=== PATIENT | male | born 1945 | race Caucasian/White ===

== ENCOUNTER 2020-02-22 09:50 | Outpatient (REF) | payer MEDICARE, OTHER, SELFPAY | END 2020-02-22 09:51 | disposition home or self-care (01) | LOC: HO.WFDLNP 09:50 | PROVIDERS: PCP Internal Medicine; Visit Provider Internal Medicine | DX: Z20.828 Contact with and (suspected) exposure to other viral communicable diseases (principal) | CPT/HCPCS: C9803; U0003 ==

== ENCOUNTER 2020-12-04 06:26 | Day surgery (SDC) | payer MEDICARE, OTHER, SELFPAY ==
[2020-11-27 14:45] VITALS: BMI 30.7
--- NOTE | 2020-11-30 16:32 | MHC.SHP ---
Pre-Procedural Eval Section A Date of Service: 11/30/20 The patient is an INPATIENT: No Changes since office visit: No Cold of Flu in the past 2 weeks, No New Medical Problems, No Changes in Medication and No Patient answered all questions The History & Physical has been completed within 30 days and I have reviewed it.: Yes Section B Chief Complaint: cataract Allergies: Allergies Allergy/AdvReac Type Severity Reaction Status Date / Time sulfamethoxazole Allergy Affected Verified 11/27/20 14:31 [From Bactrim] Kidneys trimethoprim [From Bactrim] Allergy Affected Verified 11/27/20 14:31 Kidneys Plan Diagnosis/Plan: Unchanged I have reviewed the history and physical and performed a pertinent physical examination on my patient. No changes have occurred unless specified.
--- NOTE | 2020-12-01 08:43 | P.CONAN_ITS ---
Documented by User: Jacquelyn Gannon NP 12/01/20 12:41 HPI - Anesthesia Eval Consult details Narrative: 75yo M for Left Cataract Extraction IOL Insertion PCP cleared No prev cataract on record Plavix for [facility] Past Medical History Medical History (Updated 11/27/20 @ 14:19 by Claire Joseph, RN) Arthritis AV block, 1st degree BPH (benign prostatic hyperplasia) CAD (coronary artery disease) CHF (congestive heart failure) CKD (chronic kidney disease), stage III Diabetes Elevated cholesterol GERD (gastroesophageal reflux disease) Gout HTN (hypertension) Intermittent claudication Peripheral arterial occlusive disease Surgical History Surgical History (Updated 11/27/20 @ 14:19 by Claire Joseph RN) History of bilateral total hip arthroplasty History of carotid endarterectomy Hx of angioplasty Hx of CABG Hx of coronary angioplasty Social History Social History Are you a primary career law clerk to a significant other at home: No Do you presently have visiting nurse or other home services: No Patient Tobacco Use Status: Never used Tobacco Use of substances other than those prescribed or required for medical reasons: No Substance Use Type Other:: Wine with Dinner Have you been hit, kicked, punched, or otherwise hurt by someone within the past year? If so, by whom?: No Are you DNR?: No Advance Directives: No Advance Directives Information Provided: No Advance Directives on File: No Recently lost weight without trying: No Eating poorly because of decreased appetite: No Nutrition Risks: No Nutritional Risk Meds Allergies Allergy/AdvReac Type Severity Reaction Status Date / Time sulfamethoxazole Allergy Affected Verified 12/04/20 06:31 [From Bactrim] Kidneys trimethoprim [From Bactrim] Allergy Affected Verified 12/04/20 06:31 Kidneys Home Medications Medication Instructions Recorded Confirmed Last Taken Type allopurinol 100 mg tablet 100 mg PO DAILY 11/27/20 11/27/20 Unknown History amlodipine 5 mg tablet 5 mg PO DAILY 11/27/20 11/27/20 12/04/20 05:30 History atorvastatin 40 mg tablet 40 mg PO BEDTIME 11/27/20 11/27/20 Unknown History cilostazol 50 mg tablet 50 mg PO BID 11/27/20 11/27/20 12/04/20 05:30 History clopidogrel 75 mg tablet 75 mg PO DAILY 11/27/20 11/27/20 Unknown History doxazosin 4 mg tablet 4 mg PO BEDTIME 11/27/20 11/27/20 Unknown History furosemide 20 mg tablet 40 mg PO DAILY 11/27/20 11/27/20 Unknown History glipizide 5 mg tablet 5 mg PO DAILY 11/27/20 11/27/20 Unknown History isosorbide mononitrate 30 mg 30 mg PO DAILY 11/27/20 11/27/20 12/04/20 05:30 History tablet,extended release 24 hr pantoprazole 40 mg tablet,delayed 40 mg PO DAILY 11/27/20 11/27/20 12/04/20 05:30 History release Exam Exam Date and Time: December 01, 2020 0843 Height,Weight and Vital Signs: Height 5 ft 11 in Weight 99.79 kg Narrative Narrative: EKG 11/2020 SR with 1st degree AV block Old [place] Assessment and Plan Assessment Anesthesia Assessment: Chart Reviewed Documented by User: Dorene Bella MD 12/04/20 07:29 [facility] Past Medical History Medical History (Updated 11/27/20 @ 14:19 by Claire Joseph, DANIELA) Arthritis AV block, 1st degree BPH (benign prostatic hyperplasia) CAD (coronary artery disease) CHF (congestive heart failure) CKD (chronic kidney disease), stage III Diabetes Elevated cholesterol GERD (gastroesophageal reflux disease) Gout HTN (hypertension) Intermittent claudication Peripheral arterial occlusive disease Family History Family history of problems with anesthesia: No Surgical History Surgical History (Updated 11/27/20 @ 14:19 by Claire Joseph RN) History of bilateral total hip arthroplasty History of carotid endarterectomy Hx of angioplasty Hx of CABG Hx of coronary angioplasty History of Problems with Anesthesia: No Social History Social History Are you a primary career law clerk to a significant other at home: No Do you presently have visiting nurse or other home services: No Patient Tobacco Use Status: Never used Tobacco Use of substances other than those prescribed or required for medical reasons: No Substance Use Type Other:: Wine with Dinner Have you been hit, kicked, punched, or otherwise hurt by someone within the past year? If so, by whom?: No Are you DNR?: No Advance Directives: No Advance Directives Information Provided: No Advance Directives on File: No Recently lost weight without trying: No Eating poorly because of decreased appetite: No Nutrition Risks: No Nutritional Risk Meds Allergies Allergy/AdvReac Type Severity Reaction Status Date / Time sulfamethoxazole Allergy Affected Verified 12/04/20 06:31 [From Bactrim] Kidneys trimethoprim [From Bactrim] Allergy Affected Verified 12/04/20 06:31 Kidneys Home Medications Medication Instructions Recorded Confirmed Last Taken Type allopurinol 100 mg tablet 100 mg PO DAILY 11/27/20 11/27/20 Unknown History amlodipine 5 mg tablet 5 mg PO DAILY 11/27/20 11/27/20 12/04/20 05:30 History atorvastatin 40 mg tablet 40 mg PO BEDTIME 11/27/20 11/27/20 Unknown History cilostazol 50 mg tablet 50 mg PO BID 11/27/20 11/27/20 12/04/20 05:30 History clopidogrel 75 mg tablet 75 mg PO DAILY 11/27/20 11/27/20 Unknown History doxazosin 4 mg tablet 4 mg PO BEDTIME 11/27/20 11/27/20 Unknown History furosemide 20 mg tablet 40 mg PO DAILY 11/27/20 11/27/20 Unknown History glipizide 5 mg tablet 5 mg PO DAILY 11/27/20 11/27/20 Unknown History isosorbide mononitrate 30 mg 30 mg PO DAILY 11/27/20 11/27/20 12/04/20 05:30 History tablet,extended release 24 hr pantoprazole 40 mg tablet,delayed 40 mg PO DAILY 11/27/20 11/27/20 12/04/20 05:30 History release Exam Airway Mallampati Class: II (Implant front tooth right) TM Dist: >3cm Neck ROM: Full Heart: david Lungs: cta Assessment and Plan Assessment Anesthesia Assessment: Anesthesia Plan Discussed Final Anesthetic Review Family History of Problems with Anesthesia: No History of Problems with Anesthesia: No NPO: Yes ASA Class: III Final Preanesthetic Review: No Changes in Pt Med Stat, Meds/Allgs Chart Reviewed and Consent Obtained/Reviewed Patient Risk: Intermediate Procedure Risk: Intermediate Anesthetic Plan Anesthetic Plan: MAC: Disposition: Standard PACU
[2020-12-04 06:34] VITALS: BP 163/59; PULSE 48; RESP 16; TEMP 36.2; O2SAT 98
[2020-12-04 06:44] LABS: Glucose, Whole Blood 118 mg/dL (60-115)
[2020-12-04] MEDS: Lactated Ringers 500 ML 50 ML IV (06:47)
[2020-12-04] MEDS: Tetracaine HCl/PF 0.5% Oph Sol 4 ML DROPS 1 DROP EYE-LEFT (06:51)
[2020-12-04] MEDS: Tropicamide 1 % Ophth Sol 3 ML BTL 1 DROP EYE-LEFT ×3 (06:54→07:17)
[2020-12-04] MEDS: Phenylephrine HCL 2.5% Oph SoL 2 ML BOTTLE 1 DROP EYE-LEFT ×3 (06:59→07:20)
--- NOTE | 2020-12-04 07:40 | PC.NURSE ---
Patient arrived to [facility] and placed on library monitor. Rhythm showed SB with first degree AV block, Heart rate 47-53. Patients recent EKG from 11/22/20 showed SR with heart rate in the 60's. Patient asymptomatic and states he feels fine . Per patient, no recent medication changes. Anesthesia Dr. Jimenez made aware of Sinus Bradycardia. No new orders. Okay to proceed with procedure as ordered.
--- NOTE | 2020-12-04 07:54 | HO.PNOPHT ---
Ophthalmology Procedure Procedure Date of Service: 12/04/20 Ophthalmology Viscoelastic: Healon Duet Dual Pack Pro Ophthalmology Lenses: TECANUEL [id number] (20) Procedure Notes: PREOPERATIVE DIAGNOSIS: Decreased visual acuity left eye secondary to cataract POSTOPERATIVE DIAGNOSIS: Same PROCEDURE: Left cataract extraction with intraocular lens insertion SURGEON: Freddy Celis M.D. ANESTHESIA: Topical/MAC ESTIMATED BLOOD LOSS: None COMPLICATIONS: None After obtaining informed consent, the patient was brought to the operation room suite and placed in the supine position. After adequate sedation per anesthesia, topical drops of Tetracaine were given to the left eye. The eye was then prepped and draped in the usual sterile fashion. The operating room microscope was then positioned over the operative eye and a lid speculum placed. A paracentesis was created. Viscoelastic was then instilled into the anterior chamber. A three plane incision was then created temporally, utilizing a 2.85 mm keratome. Capsulotomy forceps were then utilized to create a circular tear capsulotomy. Hydrodissection and hydrodelineation were carried out until adequate mobilization of the nucleus occurred. Phacoemulsification was then utilized to remove the dense central nucleus followed by removal of the cortical material utilizing the automated aspiration irrigation unit. Viscoat elastic was instilled into the posterior capsular bag followed by placement of a posterior chamber intraocular lens without difficulty. The residual Viscoat elastic was then removed utilizing the automated IA machine. The wound was check and found to be watertight. The patient tolerated the procedure well and the lid speculum was removed. Intracameral injection of Vigamox 0.1 mL followed by a subtenon injection of Kenalog-40 0.2 mL were administered. The patient will be seen in the a.m.
[2020-12-04 08:28] VITALS: BP 157/55; PULSE 48; RESP 17; TEMP 36.1; O2SAT 96
== END 2020-12-04 08:41 | disposition home or self-care (01) ==
PROVIDERS: PCP Internal Medicine; Visit Provider Ophthalmology
PROC: (CPT 66985; principal; 2020-12-04 08:30)
DX: H25.12 Age-related nuclear cataract, left eye (principal); I13.0 Hypertensive heart and chronic kidney disease with heart failure and stage 1 through stage 4 chronic kidney disease, or unspecified chronic kidney disease; E11.22 Type 2 diabetes mellitus with diabetic chronic kidney disease; N18.30 Chronic kidney disease, stage 3 unspecified; I50.9 Heart failure, unspecified; Z79.84 Long term (current) use of oral hypoglycemic drugs; Z79.899 Other long term (current) drug therapy
CPT/HCPCS: 66984; 82947; J2250; J3010; J3300; V2632

== ENCOUNTER 2021-03-08 17:38 | Emergency (ER) | payer MEDICARE, OTHER, SELFPAY ==
--- NOTE | ~2021-03-08 | XR_ITS ---
EXAMINATION: XR HIP, LEFT CLINICAL INFORMATION: Pain. Hip replacement. COMPARISON: None TECHNIQUE: Frontal view of pelvis. Two views of the left hip. FINDINGS: Status post bilateral hip replacement. Neither the right nor the left femoral component is not entirely imaged. The distal tips of the femoral components are excluded on the obtained images. The visualized portions of the prosthesis for both hips are intact with no fracture or evidence of loosening. XR/XR hip LT w [id number] IMPRESSION: Status post bilateral hip replacement. No acute abnormality of either hip. Please note the distal tips of the prosthesis are not included in the study for either the right or the left hip.
[2021-03-08 17:57] VITALS: BP 156/72; PULSE 82; RESP 16; TEMP 36.6; O2SAT 98; BMI 32.1
--- NOTE | 2021-03-08 20:10 | ED.LOWEXIN ---
HPI - Extremity Injury (Lower) General Chief Complaint: Extremity Injury, Lower Stated Complaint: hip pain Source: patient Mode of arrival: ambulatory Limitations: no limitations History of Present Illness HPI Narrative: 75-year-old male presents with left-sided hip pain that started after he got out his truck. Feels like he misplaced his step when he landed. Does not report falling, indication of cauda equina, or back pain. MD complaint: hip injury Onset (ago): hour(s) (The hour of arrival) Type of Injury: unknown Place: street/outdoors Severity: moderate Severity scale (1-10): 7 Relieving factors: nothing Exacerbating factors: weight bearing Context: other (Stepping out a truck) Associated symptoms: able to partially bear weight Other symptoms: none Related Data Home Medications Medication Instructions Recorded Confirmed allopurinol 100 mg tablet 100 mg PO DAILY 11/27/20 11/27/20 amlodipine 5 mg tablet 5 mg PO DAILY 11/27/20 11/27/20 atorvastatin 40 mg tablet 40 mg PO BEDTIME 11/27/20 11/27/20 cilostazol 50 mg tablet 50 mg PO BID 11/27/20 11/27/20 clopidogrel 75 mg tablet 75 mg PO DAILY 11/27/20 11/27/20 doxazosin 4 mg tablet 4 mg PO BEDTIME 11/27/20 11/27/20 furosemide 20 mg tablet 40 mg PO DAILY 11/27/20 11/27/20 glipizide 5 mg tablet 5 mg PO DAILY 11/27/20 11/27/20 isosorbide mononitrate 30 mg 30 mg PO DAILY 11/27/20 11/27/20 tablet,extended release 24 hr pantoprazole 40 mg tablet,delayed 40 mg PO DAILY 11/27/20 11/27/20 release Previous Rx's Medication Instructions Recorded oxycodone 5 mg tablet 5 mg PO Q8H PRN #7 tab 03/08/21 Allergies Allergy/AdvReac Type Severity Reaction Status Date / Time sulfamethoxazole Allergy Affected Verified 12/04/20 06:31 [From Bactrim] Kidneys trimethoprim [From Bactrim] Allergy Affected Verified 12/04/20 06:31 Kidneys Review of Systems Review of Systems: Constitutional: No Fever, No Chills ENT/Mouth: No Ear Pain, No Hoarseness, No sore throat Eyes: No Eye Pain, No Swelling, No Redness, No Foreign Body Cardiovascular: No Chest Pain, No SOB Respiratory: No Cough, No Dyspnea Gastrointestinal: No Nausea, No Vomiting, No Diarrhea, No abdominal Pain Genitourinary: No Dysuria, No Hematuria Musculoskeletal: positive left hip pain, No Myalgias, No Joint Swelling Skin: No Skin lacerations, No rash Neuro: No Weakness, No Numbness, No Paresthesias, No Loss of Consciousness, No Dizziness, No Headache Psych: No Anxiety/Panic, No Depression Heme/Lymph: no easy bruising, no Lymphadenopathy Endocrine: No Polyuria, No Polydipsia Yes all other systems are reviewed and are negative FORMERLY [facility] Past Medical History Attestation statement: The following information was validated with the patient. Source: old records reviewed Medical History Arthritis AV block, 1st degree BPH (benign prostatic hyperplasia) CAD (coronary artery disease) CHF (congestive heart failure) CKD (chronic kidney disease), stage III Diabetes Elevated cholesterol GERD (gastroesophageal reflux disease) Gout HTN (hypertension) Intermittent claudication Peripheral arterial occlusive disease Surgical History History of bilateral total hip arthroplasty History of carotid endarterectomy Hx of angioplasty Hx of CABG Hx of coronary angioplasty Social History Social History Are you a primary pet care assistant to a significant other at home: No Do you presently have visiting nurse or other home services: No Patient Tobacco Use Status: Never used Tobacco Advance Directives: No Advance Directives Information Provided: Yes Physical Exam Vital Signs: Vital Signs: Last Vital Signs Temp 97.8 F 03/08/21 17:57 Pulse 80 03/08/21 21:23 Resp 17 03/08/21 21:23 BP 159/77 H 03/08/21 21:23 Pulse Ox 96 03/08/21 21:23 BMI result Body Mass Index 32.1 Appearance: Alert. Oriented X3. Mild distress. Eyes: Pupils equal, round and reactive to light. Sclera nonicteric. ENT: Pharynx normal. Moist mucous membranes. Neck: Normal inspection. Neck supple. No vertebral tenderness or nuchal rigidity noted. CVS: Normal heart rate and rhythm. Pulses normal. Respiratory: No respiratory distress. Breath sounds normal. Abdomen: Soft and nontender. Skin: Skin warm and dry. Normal skin color. Normal skin turgor. Extremities: No lower extremity edema. Full range of motion to bilateral lower extremities. Tenderness noted to palpation to the lateral left hip. No ecchymosis wounds or lesions noted. Brisk capillary refill equal pedal pulses. Neuro: No motor deficit. No sensory deficit. Cranial nerves 2-12 intact. Course Course Course Narrative: 75-year-old male presents with left-sided hip pain after stepping out of truck. Does not report any falls or any other concerning symptoms. No indication of fracture, does have tenderness to the left lateral hip on palpation. Pelvis stable. Pain is sudden in onset. Highly in unlikely to be infectious in nature. Blood pressure is elevated, does take blood pressure medications. Other vital signs are stable and within normal limits. X-rays are negative for acute findings. I did discuss x-ray findings not including the distal tips of bilateral prosthesis, patient does not want further x-rays. Patient will call his orthopedic surgeon for an evaluation. Will treat him with Toradol and oxycodone. Patient verbalized understanding of and agrees plan of care discharge home. MDM - Extremity Injury (Lower) MDM Narrative Medical decision making narrative: Muscle strain. Differential Diagnosis Differential diagnosis: Likely fracture of hip Medical Records Attestation: I reviewed the patient's medical records. Imaging Data Hip x-ray: Attestation: I personally reviewed and interpreted this imaging study as follows: Radiologist's impression: Vent. Rate : 078 BPM ? ? Atrial Rate : 078 BPM ?? P-R Int : 146 ms? QRS Dur : 074 ms ? ? QT Int : 364 ms ? ? ? P-R-T Axes : 015 011 008 degrees ?? QTc Int : 414 ms ? Normal sinus rhythm Normal ECG No previous ECGs available Discharge Plan Discharge Clinical Impression: Acute hip pain Patient Disposition: Home, Self-Care Instructions: Hip Pain (ED) Additional Instructions: You were evaluated for left-sided hip pain. Please follow-up with your orthopedic provider for evaluation as you do have bilateral hip replacements. X-rays were negative for acute findings. We prescribed oxycodone 5 mg tablets. This medication is a narcotic and has high risk for addiction and abuse. Do not drive or operate machinery while taking this medication. This medication is constipating. Please use MiraLax and Colace as needed to help soften stool. Drink plenty of fluids. Use caution when changing positions. Medication can cause drowsiness, increased risk for falls, and delayed reaction time. Thank you for choosing this emergency department for evaluation. Please follow-up with primary care physician as needed. Return to the emergency department for any new, concerning, or worsening symptoms. Prescriptions: New oxycodone 5 mg tablet 5 mg PO Q8H PRN (Reason: pain) Qty: 7 RF: 0 No Action atorvastatin 40 mg Tablet 40 mg PO BEDTIME RF: 0 cilostazol 50 mg Tablet 50 mg PO BID RF: 0 isosorbide mononitrate 30 mg Tablet Extended Release 24 Hr 30 mg PO DAILY RF: 0 clopidogrel 75 mg Tablet 75 mg PO DAILY RF: 0 amlodipine 5 mg Tablet 5 mg PO DAILY RF: 0 allopurinol 100 mg Tablet 100 mg PO DAILY RF: 0 pantoprazole 40 mg Tablet,Delayed Release (Dr/Ec) 40 mg PO DAILY RF: 0 doxazosin 4 mg Tablet 4 mg PO BEDTIME RF: 0 furosemide 20 mg Tablet 40 mg PO DAILY RF: 0 glipizide 5 mg Tablet 5 mg PO DAILY RF: 0 Referrals: Gilmer Rivera MD [Physician] - 2 days (Left hip pain, bilateral hip replacement) Interventions: ED Discharge Assessment Last Done: 03/08/21 21:25 Discharge Date/Time: 03/08/21 21:26
[2021-03-08] MEDS: oxyCODONE HCl Immed Release 5 MG TABLET PO (20:51)
[2021-03-08] MEDS: Ketorolac Tromethamine 60 MG/2 ML VIAL IM (20:52)
[2021-03-08 21:23] VITALS: BP 159/77; PULSE 80; RESP 17; O2SAT 96
== END 2021-03-08 21:26 | disposition home or self-care (01) ==
PROVIDERS: Emergency Provider Internal Medicine; PCP Internal Medicine
DX: M25.552 Pain in left hip (principal); E11.22 Type 2 diabetes mellitus with diabetic chronic kidney disease; I13.0 Hypertensive heart and chronic kidney disease with heart failure and stage 1 through stage 4 chronic kidney disease, or unspecified chronic kidney disease; N18.30 Chronic kidney disease, stage 3 unspecified; Z79.899 Other long term (current) drug therapy
CPT/HCPCS: 73502; 96372; 99284; J1885

== ENCOUNTER 2021-10-16 10:17 | Emergency (ER) | payer MEDICARE, OTHER, SELFPAY ==
--- NOTE | ~2021-10-16 | CT_ITS ---
EXAMINATION: CT HEAD WITHOUT CONTRAST CLINICAL INFORMATION: htn, on coumadin, r/o ich COMPARISON: None TECHNIQUE: Contiguous axial imaging was performed from the skull base to vertex without intravenous administration of contrast. This CT examination was performed using dose optimization techniques as appropriate, variously including the following: *Automated exposure control *Adjustment of mA and/or kV according to patient size (this includes techniques or standardized protocols for targeted exams where dose is matched to indication/reason for exam; i.e. extremities or head) *Use of iterative reconstruction technique DLP: 764 mGy-cm FINDINGS: There is no evidence of acute intracranial hemorrhage or territorial infarction. No abnormal mass effect or midline shift is seen. Brown to white matter differentiation is well preserved. No extra-axial fluid collections are identified. The ventricles are normal in size. A few foci of hypoattenuation in the subcortical and periventricular white matter are most consistent with chronic microangiopathic changes. 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 No acute osseous findings. Soft tissues are otherwise unremarkable.. The mastoid air cells and visualized portions of the paranasal sinuses are well aerated. CT/CT head/brain wo con IMPRESSION: No acute intracranial pathology.
[2021-10-16 10:22] VITALS: BP 186/77; PULSE 74; RESP 16; TEMP 36.1; O2SAT 96; BMI 30.4
[2021-10-16 13:57] VITALS: BP 208/96; PULSE 54; RESP 18; O2SAT 100
--- NOTE | 2021-10-16 16:05 | ED_ITS ---
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 Last tetanus 5 years ago. Denies injury to the area, numbness, tingling, weakness, decreased ROM Onset (ago): hour(s) Related Data Home Medications Medication Instructions Recorded Confirmed allopurinol 100 mg tablet 100 mg PO DAILY 11/27/20 11/27/20 amlodipine 5 mg tablet 5 mg PO DAILY 11/27/20 11/27/20 atorvastatin 40 mg tablet 40 mg PO BEDTIME 11/27/20 11/27/20 cilostazol 50 mg tablet 50 mg PO BID 11/27/20 11/27/20 clopidogrel 75 mg tablet 75 mg PO DAILY 11/27/20 11/27/20 doxazosin 4 mg tablet 4 mg PO BEDTIME 11/27/20 11/27/20 furosemide 20 mg tablet 40 mg PO DAILY 11/27/20 11/27/20 glipizide 5 mg tablet 5 mg PO DAILY 11/27/20 11/27/20 isosorbide mononitrate 30 mg 30 mg PO DAILY 11/27/20 11/27/20 tablet,extended release 24 hr pantoprazole 40 mg tablet,delayed 40 mg PO DAILY 11/27/20 11/27/20 release Previous Rx's Medication Instructions Recorded oxycodone 5 mg tablet 5 mg PO Q8H PRN pain #7 tabs 03/08/21 bacitracin 500 unit/gram topical 1 appl topical BID #30 grams 10/16/21 ointment Allergies Allergy/AdvReac Type Severity Reaction Status Date / Time sulfamethoxazole Allergy Affected Verified 10/16/21 10:21 [From Bactrim] Kidneys trimethoprim [From Bactrim] Allergy Affected Verified 10/16/21 10:21 Kidneys Review of Systems Review of Systems: Constitutional: No Fever, No Chills ENT/Mouth: No Ear Pain, No Nasal Congestion, No sore throat, No Rhinorrhea, No Swallowing Difficulty Cardiovascular: No Chest Pain, No SOB Respiratory: No Cough, No Sputum, No Wheezing Gastrointestinal: No Nausea, No Vomiting, No Diarrhea, No Constipation, No Abdominal pain Genitourinary: No Dysuria, No Urinary Frequency, No Hematuria, No Urinary Incontinence/retention Musculoskeletal: No joint pain, No Myalgias, No Joint Swelling Skin: + Skin Lesions, No rash Neuro: No Weakness, No Numbness, No Paresthesias Yes all other systems are reviewed and are negative Constitutional: Constitutional: Reports as per [facility] Past Medical History Attestation statement: The following information was validated with the patient. Medical History Arthritis AV block, 1st degree BPH (benign prostatic hyperplasia) CAD (coronary artery disease) CHF (congestive heart failure) CKD (chronic kidney disease), stage III Diabetes Elevated cholesterol GERD (gastroesophageal reflux disease) Gout HTN (hypertension) Intermittent claudication Peripheral arterial occlusive disease Surgical History History of bilateral total hip arthroplasty History of carotid endarterectomy Hx of angioplasty Hx of CABG Hx of coronary angioplasty Social History Social History Are you a primary career agent to a significant other at home: No Do you presently have visiting nurse or other home services: No Patient Tobacco Use Status: Never used Tobacco Advance Directives: Yes Advance Directives Information Provided: Yes Advance Directives on File: No Physical Exam Vital Signs: Vital Signs: Last Vital Signs Temp 98.8 F 10/16/21 16:34 Pulse 62 10/16/21 18:09 Resp 14 10/16/21 18:09 BP 212/88 H 10/16/21 18:09 Pulse Ox 96 10/16/21 18:09 O2 Del Method 10/16/21 18:09 BMI result Body Mass Index 30.4 Const: General: cooperative, healthy appearing and no acute distress Orientation/consciousness: patient oriented x3 Limitations: no limitations HEENT: Head: Yes normal to inspection and Yes atraumatic Ears: hearing grossly normal bilaterally General nose exam: Normal external nose present Face and sinus: Yes normal facial exam Eyes: General: appearance normal, both eyes and all related structures EOM: EOMs intact bilaterally Neck: Neck: Yes normal visual inspection and Yes no meningeal signs Resp: Effort & Inspection: normal respiratory effort and no respiratory distress Cardio: Rate: regular rate Heart sounds: S1 normal heart sound present and S2 normal heart sound present Peripheral pulses: radial pulses present and ulnar radial pulses present GI: Inspection: Yes normal to inspection Palpation (GI): Soft to palpation, nontender, no guarding and not rigid : General: Yes no CVA tenderness Back/Spine/Pelvis: Back: no CVA tenderness Skin: Other: 5 cm deep laceration noted to right proximal forearm, underlying structures visible and intact. + overlying abrasion/skin avulsion. Bleeding controlled. Rashes: no rashes Neuro: General: patient oriented x3, tone normal and no meningeal signs Gait exam (Neuro): Normal gait present Extrem: General: Yes normal to inspection Course Course Course Narrative: -patient denies taking any of his home medications today. Denies headache, CP. Reports increasingly stressful day. Notably hypertensive will give home dose of medications prior to discharge. Low suspicion for hypertensive urgency/emergency -1824-- patients BP still very elevated, mild improvement to 212/88 after PO home meds > on re-evaluation patient now reports BARNEY. Denies CP, SOB, lightheadedness/dizziness, numbness, tingling, weakness >> will obtain EKG, labs, head CT, and give p.o. clonidine to rule out hype rtensive urgency/emergency -1899--ED care transferred to [facility] pending EKG, labs, head CT and blood pressure control/monitoring. 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 On exam hypertensive likely from pain, NAD, nontoxic appearing, physical exam as above with noted laceration to RUE, bleeding controlled. Tetanus is up-to-date. Plan: Repair wound Differential Diagnosis Differential diagnosis: Likely laceration Medical Records Attestation: I reviewed the patient's medical records. Lab Data Attestation: I reviewed the patient's lab results. Procedures Laceration Laceration 1: Site: upper extremity Side (If applicable): right Size (cm): 5 Description: linear Depth: simple, single layer Local Anesthetic: lidocaine 1% Amount of anesthesia used (mL): 5 Pre-repair: wound explored, irrigated extensively and deep structures intact Skin layer closed with: nylon Size (cm): 4-0 Number of sutures: 8 Technique: simple, interrupted Critical Care Time Critical Care Time Critical Care Time: Yes Total Critical Care Time: 35 Attestation: I have personally provided critical care time exclusive of time spent on separately billable procedures. Time includes review of lab data, radiology results, discussion with consultants, and monitoring for potential decompensation. Intervention performed as documented. Discharge Plan Discharge Clinical Impression: Laceration, Hypertension Patient Disposition: Home, Self-Care Instructions: Laceration (ED), Heart Healthy Diet (ED), Hypertension (ED) Additional Instructions: Blood pressure was very elevated today in the emergency room. Please monitor closely at home. Follow up with your primary care doctor in 1-2 days. Your wounds were repaired today in the emergency department. Keep dry and clean. You need to return to any emergency department or urgent care in 7-10 days for suture removal Apply bacitracin and or Neosporin daily Once sutures are removed apply anti scar cream like Mederma If area begins look infected, is red, there is drainage, streaking, or you have fever please return to the emergency department Prescriptions: New bacitracin 500 unit/gram ointment 1 appl topical BID Qty: 30 0RF No Action atorvastatin 40 mg Tablet 40 mg PO BEDTIME cilostazol 50 mg Tablet 50 mg PO BID isosorbide mononitrate 30 mg Tablet Extended Release 24 Hr 30 mg PO DAILY clopidogrel 75 mg Tablet 75 mg PO DAILY amlodipine 5 mg Tablet 5 mg PO DAILY allopurinol 100 mg Tablet 100 mg PO DAILY pantoprazole 40 mg Tablet,Delayed Release (Dr/Ec) 40 mg PO DAILY doxazosin 4 mg Tablet 4 mg PO BEDTIME furosemide 20 mg Tablet 40 mg PO DAILY glipizide 5 mg Tablet 5 mg PO DAILY oxycodone 5 mg tablet 5 mg PO Q8H PRN (Reason: pain) Qty: 7 0RF Rx Instructions: Hip pain Referrals: ED Physician,Generic [Emergency Provider] - 1 week (7-10 days for suture removal) Chauncey Salmeron MD [Primary Care Provider] - 1 day
[2021-10-16] MEDS: Bacitracin Oint 14 GM TUBE 1 APPL TOPICAL (16:28)
[2021-10-16 16:34] VITALS: BP 228/105; PULSE 54; RESP 16; TEMP 37.1; O2SAT 98
--- NOTE | 2021-10-16 16:36 | PC.NURSE ---
wound dressed and delroy wrap applied per pa verbal order
[2021-10-16] MEDS: Isosorbide Mononitrate 30 MG TAB.ER.24H PO (17:30)
[2021-10-16] MEDS: Furosemide 20 MG TABLET PO (17:30)
[2021-10-16 18:09] VITALS: BP 212/88; PULSE 62; RESP 14; O2SAT 96
--- NOTE | 2021-10-16 18:21 | ECG_ITS ---
Test Reason : HTN Blood Pressure : / mmHG Vent. Rate : 055 BPM Atrial Rate : 055 BPM P-R Int : 584 ms QRS Dur : 104 ms QT Int : 480 ms P-R-T Axes : 043 012 006 degrees QTc Int : 459 ms Sinus bradycardia with marked first degree AV block with occasional Premature ventricular complexes Left ventricular hypertrophy with repolarization abnormality ( [place] product ) Possible Inferior infarct , age undetermined Abnormal ECG No previous ECGs available Referred By: Sania Shipley Electronically Signed By:CAROL BERNAL MD
[2021-10-16] MEDS: cloNIDine HCL 0.2 MG TABLET PO (18:39)
[2021-10-16 19:20] LABS: MANUAL DIFF FLAG NO
[2021-10-16 19:25] LABS: Prothrombin Time 11.8 SEC (10.0-13.1)
[2021-10-16 19:31] LABS: Basophils Percent Auto 0.3 % (0-2); Eosinophils Absolute Auto 0.3 X10*3/uL (0.0-0.4); Eosinophils Percent Auto 4.3 % (0-4); Hematocrit 39.1 % (42.0-52.0); Hemoglobin 12.1 g/dl (14.0-18.0); Imm Gran Abs Auto 0.03 X10*3/uL (0.00-0.03); Imm Gran Pct Auto 0.5 % (0.0-0.4); Lymphocytes Absolute Auto 0.8 X10*3/uL (1.2-4.9); Lymphocytes Percent Auto 12.9 % (20-40); Mean Corpuscular HGB Conc 30.9 g/dl (31.0-36.0); Mean Corpuscular Hemoglobin 20.3 pg (27.0-33.0); Mean Corpuscular Volume 65.5 fL (80.0-98.0); Monocytes Absolute Auto 0.5 X10*3/uL (0.1-1.2); Monocytes Percent Auto 7.7 % (2-11); Neutrophils Absolute Auto 4.3 x10*3/uL (2.0-8.3); Neutrophils Percent Auto 74.3 % (45-73); Red Blood Count 5.97 X10*6/uL (4.60-5.80); Red Cell Distribution Width 17.9 % (11.0-16.0); White Blood Count 5.8 X10*3/uL (4.8-10.8)
[2021-10-16 19:34] LABS: Anion Gap 14 (12-20); Blood Urea Nitrogen 38 mg/dL (9-16); Carbon Dioxide 26 mmol/L (22-29); Chloride 106 mmol/L (96-108); Creatinine Clr Calc Pharmacy 44.1; Estimated Glomerular Filt Rate 38; Glucose Random 113 mg/dL (60-115); Potassium 4.7 mmol/L (3.3-5.1); Sodium 141 mmol/L (135-145)
[2021-10-16 19:41] LABS: Troponin-I High Sensitivity 46.1 ng/L (<3.5-35.0)
[2021-10-16 19:52] LABS: Platelet Count 130 X10*3/uL (160-400)
[2021-10-16 20:46] VITALS: BP 165/75; PULSE 50; RESP 15; O2SAT 99
== END 2021-10-16 23:20 | disposition home or self-care (01) ==
PROVIDERS: Physician Assistant; Emergency Provider Internal Medicine; PCP Internal Medicine
DX: S51.811A Laceration without foreign body of right forearm, initial encounter (principal); W29.3XXA Contact with powered garden and outdoor hand tools and machinery, initial encounter; R51.9 Headache, unspecified; E11.22 Type 2 diabetes mellitus with diabetic chronic kidney disease; I13.0 Hypertensive heart and chronic kidney disease with heart failure and stage 1 through stage 4 chronic kidney disease, or unspecified chronic kidney disease; N18.30 Chronic kidney disease, stage 3 unspecified; I50.9 Heart failure, unspecified; E78.5 Hyperlipidemia, unspecified; Y93.89 Activity, other specified; Y92.019 Unspecified place in single-family (private) house as the place of occurrence of the external cause; Y99.9 Unspecified external cause status; Z79.01 Long term (current) use of anticoagulants
CPT/HCPCS: 12002; 36415; 70450; 80048; 84484; 85025; 85610; 93005; 99284

== ENCOUNTER 2022-04-07 15:23 | Emergency (ER) | payer MEDICARE, OTHER, SELFPAY ==
[2022-04-07 15:37] VITALS: BP 164/43; PULSE 43; RESP 18; TEMP 36.1; O2SAT 96; BMI 28.5
--- NOTE | 2022-04-07 15:39 | ED_ITS ---
History of Present Illness General Chief Complaint: Epistaxis <Ade Nunez CNP - Last Filed: 04/07/22 15:41> Stated Complaint: nose bleed <Ade Nunez CNP - Last Filed: 04/07/22 15:41> Time Seen by Provider: 04/07/22 15:54 <Ade Nunez CNP - Last Filed: 04/07/22 15:41> Source: patient <Doretha Wolf NP - Last Filed: 04/07/22 18:39> Mode of arrival: ambulatory <Doretha Wolf NP - Last Filed: 04/07/22 18:39> Limitations: no limitations <Doretha Wolf NP - Last Filed: 04/07/22 18:39> History of Present Illness HPI Narrative: 76-year-old male past medical history of hypertension and new diagnosis of CHF with valvular failure, started on Warfarin 5 days ago, presents to the emergency department with right nare bleeding controlled with tissues packed into his nose. Patient states bleeding began around 1:30 p.m. when he bent forward to pick something up his nose began draining large amounts of bright red blood. He packed his nose with tissues at home and came to the emergency department. He denies any headache, vision changes, fever, chills, melena, hematochezia, hemaemesis, bleeding gums or other acute bleeding. <Doretha Wolf NP - Last Filed: 04/07/22 18:39> Location: Yes right nares <Doretha Wolf NP - Last Filed: 04/07/22 18:39> Onset/current episode: Yes hour(s) (2) <Doretha Wolf NP - Last Filed: 04/07/22 18:39> Duration: Yes constant <Doretha Wolf NP - Last Filed: 04/07/22 18:39> Pertinent past history: Yes hypertension <Doretha Wolf NP - Last Filed: 04/07/22 18:39> Context: Yes warfarin use <Doretha Wolf NP - Last Filed: 04/07/22 18:39> Treatment prior to arrival: Yes nose pinching and Yes stuff nose with tissue <Doretha Wolf NP - Last Filed: 04/07/22 18:39> Related Data Home Medications: Home Medications Medication Instructions Recorded Confirmed allopurinol 100 mg tablet 100 mg PO DAILY 11/27/20 11/27/20 amlodipine 5 mg tablet 5 mg PO DAILY 11/27/20 11/27/20 atorvastatin 40 mg tablet 40 mg PO BEDTIME 11/27/20 11/27/20 cilostazol 50 mg tablet 50 mg PO BID 11/27/20 11/27/20 clopidogrel 75 mg tablet 75 mg PO DAILY 11/27/20 11/27/20 doxazosin 4 mg tablet 4 mg PO BEDTIME 11/27/20 11/27/20 furosemide 20 mg tablet 40 mg PO DAILY 11/27/20 11/27/20 glipizide 5 mg tablet 5 mg PO DAILY 11/27/20 11/27/20 isosorbide mononitrate 30 mg 30 mg PO DAILY 11/27/20 11/27/20 tablet,extended release 24 hr pantoprazole 40 mg tablet,delayed 40 mg PO DAILY 11/27/20 11/27/20 release Previous Rx's Medication Instructions Recorded oxycodone 5 mg tablet 5 mg PO Q8H PRN pain #7 tabs 03/08/21 bacitracin 500 unit/gram topical 1 appl topical BID #30 grams 10/16/21 ointment cephalexin 500 mg capsule 500 mg PO QID 7 days #28 caps 10/16/21 amoxicillin 875 mg-potassium 1 tab PO BID 7 days #14 tabs 04/07/22 clavulanate 125 mg tablet <Ade Nunez CNP - Last Filed: 04/07/22 15:41> Allergies/Adverse Reactions: Allergies Allergy/AdvReac Type Severity Reaction Status Date / Time sulfamethoxazole Allergy Affected Verified 04/07/22 15:46 [From Bactrim] Kidneys trimethoprim [From Bactrim] Allergy Affected Verified 04/07/22 15:46 Kidneys <Ade Nunez CNP - Last Filed: 04/07/22 15:41> Review of Systems Review of Systems: In addition to documented HPI above, the additional ROS was obtained: Constitutional: No Weight loss, No Fever, No Chills ENT/Mouth: No Ear Pain, No Nasal Congestion, No Sinus Pain, No Hoarseness, No sore throat, No Rhinorrhea, No Swallowing Difficulty Cardiovascular: No Chest Pain, No SOB Respiratory: No Cough, No Sputum, No Wheezing Gastrointestinal: No Nausea, No Vomiting, No Diarrhea, No Constipation, No Abdominal pain Genitourinary: No Dysuria, No Urinary Frequency, No Hematuria, No Urinary Incontinence/retention, No Urgency, No Flank Pain Musculoskeletal: No joint pain, No Myalgias, No Joint Swelling Skin: No Skin Lesions, No rash Neuro: No Weakness, No Numbness, No Paresthesias <Doretha Wolf NP - Last Filed: 04/07/22 18:39> Yes all other systems are reviewed and are negative <Doretha Wolf NP - Last Filed: 04/07/22 18:39> PMFSH Past Medical History Medical History: Medical History Arthritis AV block, 1st degree BPH (benign prostatic hyperplasia) CAD (coronary artery disease) CHF (congestive heart failure) CKD (chronic kidney disease), stage III Diabetes Elevated cholesterol GERD (gastroesophageal reflux disease) Gout HTN (hypertension) Intermittent claudication Peripheral arterial occlusive disease <Ade Nunez CNP - Last Filed: 04/07/22 15:41> Surgical History: Surgical History History of bilateral total hip arthroplasty History of carotid endarterectomy Hx of angioplasty Hx of CABG Hx of coronary angioplasty <Ade Nunez CNP - Last Filed: 04/07/22 15:41> Social History Social History: Social History Are you a primary assurance services manager health care to a significant other at home: No Do you presently have visiting nurse or other home services: No Patient Tobacco Use Status: Never used Tobacco Smoked in Last 30 Days: No Use of substances other than those prescribed or required for medical reasons: No Any prior treatment program specific to substance use: No Advance Directives: No Advance Directives Information Provided: No <Ade Nunez CNP - Last Filed: 04/07/22 15:41> Physical Exam Vital Signs: Vital Signs: Last Vital Signs Temp 97.0 F 04/07/22 15:37 Pulse 43 L 04/07/22 15:37 Resp 18 04/07/22 15:37 BP 164/43 H 04/07/22 15:37 Pulse Ox 96 04/07/22 15:37 O2 Del Method 04/07/22 15:37 BMI result Body Mass Index 28.5 <Ade Rebeccajuan Nunez CNP - Last Filed: 04/07/22 15:41> Vital Signs: Last Vital Signs Temp 97.0 F 04/07/22 15:37 Pulse 43 L 04/07/22 15:37 Resp 18 04/07/22 15:37 BP 164/43 H 04/07/22 15:37 Pulse Ox 96 04/07/22 15:37 O2 Del Method 04/07/22 15:37 BMI result Body Mass Index 28.5 <Doretha Wolf NP - Last Filed: 04/07/22 18:39> Nursing notes and vital signs reviewed. GENERAL APPEARANCE: A&0 x 4, generally well appearing, no acute distress HENMT: Normal to inspection, atraumatic, face symmetrical. Normal external ears and oropharynx clear. Right nare with carlos red blood on exam EYE: PERRLA, EOM intact, structures appear normal NECK: Supple without lymphadenopathy. No stiffness or restricted ROM. CHEST: Normal to inspection HEART: Normal rate and regular rhythm, normal S1/S2, no M/R/G LUNGS: LS CTA, moving air well. Able to speak in complete sentences. No crackles, wheezes, or rhonchi auscultated ABDOMEN: Soft, nontender, nondistended. Normal bowel sounds noted BACK: No CVAT, no obvious deformity EXTREMITIES: Moving all extremities without difficulty. No cyanosis, clubbing, or edema. Normal capillary refill. NEUROLOGICAL: Alert and oriented, moving all 4 extremities with equal strength. CN not formally tested but appearing grossly intact. Observed to ambulate with normal gait. Cognition normal SKIN: Warm and dry without any lesions, rash, or visible sores PSYCH: Cooperative, normal affect, normal thought process <Doretha Wolf NP - Last Filed: 04/07/22 18:39> Course Course Course Narrative: This is an RME: Additional HPI, ROS, PE not included below will be deferred to primary provider. Patient is a 76-year-old male who presents to the emergency department for evaluation of epistaxis. Reports that he was started on Coumadin 2 weeks ago for atrial fibrillation. Reports 2 hours ago onset of right epistaxis, feels sensation of a trickling down the throat. States that he was bending forward in the bleeding began suddenly without trauma or injury. Patient states that he packed the nostril with tissue paper, this time no active bleeding from the nares, but states that he can still feel it to the throat. Denies any other sources of bleeding <Ade Nunez, MALT LOADER - Last Filed: 04/07/22 15:41> Medications Administered Discontinued Medications Generic Name Dose Route Start Last Admin Trade Name Freq PRN Reason Stop Dose Admin Oxymetazoline HCl 2 spray 04/07/22 16:37 04/07/22 16:45 Oxymetazoline Hcl 0.05 % Nasal 15 Ml [place] NOSTRIL-B 04/07/22 16:38 2 spray ONCE ONE Administration Silver Nitrate 1 appl 04/07/22 16:38 04/07/22 16:45 Silver Nitrate Applicator Stick..Ea. TOPICAL 04/07/22 16:39 1 appl ONCE ONE Administration Tranexamic Acid 500 mg 04/07/22 17:23 04/07/22 17:34 Tranexamic Acid 1,000 Mg/10 Ml Vial INTRANASAL 04/07/22 17:24 500 mg ONCE ONE Administration <Ade Nunez, MALT LOADER - Last Filed: 04/07/22 15:41> Medications Administered Discontinued Medications Generic Name Dose Route Start Last Admin Trade Name Freq PRN Reason Stop Dose Admin Oxymetazoline HCl 2 spray 04/07/22 16:37 04/07/22 16:45 Oxymetazoline Hcl 0.05 % Nasal 15 Ml [place] NOSTRIL-B 04/07/22 16:38 2 spray ONCE ONE Administration Silver Nitrate 1 appl 04/07/22 16:38 04/07/22 16:45 Silver Nitrate Applicator Stick..Ea. TOPICAL 04/07/22 16:39 1 appl ONCE ONE Administration Tranexamic Acid 500 mg 04/07/22 17:23 04/07/22 17:34 Tranexamic Acid 1,000 Mg/10 Ml Vial INTRANASAL 04/07/22 17:24 500 mg ONCE ONE Administration <Doretha Wolf NP - Last Filed: 04/07/22 18:39> Medical Decision Making Medical Decision Making [facility] Narrative: 76-year-old male past medical history of hypertension and new diagnosis of CHF with valvular failure, started on Warfarin 5 days ago, presents to the emergency department with right nare bleeding controlled with tissues packed into his nose. Tissue removed from his nose and pt asked to blow nose. Large clot forceable removed from right nare. Small area of bleeding noted on inspection and cauterized with silver nitrate by Dr Aguilar. 2 sprays Afrin given in right nare. On reinspection, right nare with continued bleeding, although less than previous. TXA soaked cotton swab used with slight redution in bleeding. Rhino rocket inserted with improvement in bleeding. Pt tolerated without incident. Afrin sent home with patient with education to use as directed. Pt educated to hold warfarin dose tonight and tomorrow and contact his PCP for further instructions regarding warfarin dosing. Augmentin 7 day antibiotic course ordered for prevention of nasal infection due to nasal packing in place. Patient is safe for discharge at this time. HPI, PE, diagnostics, and plan discussed with patient and family with no unanswered questions at this time. Patient educated that packing should be removed in 2 days. Patient educated to return to the emergency department with new, worsening, or concerning emergent symptoms. Recommended to follow-up with there primary care provider for further treatment and management. *Refer to Course for additional information on consultations, diagnostic interpretation, consultations, emergency department stay, conversations with pa josh and family, shared decision making with patient, and more information on medical decision making* <Doretha Wolf NP - Last Filed: 04/07/22 18:39> Lab Data [facility] Lab Attestation statement: I reviewed the patient's lab results. <Doretha Wolf NP - Last Filed: 04/07/22 18:39> Result Diagrams: 04/07/22 15:53 04/07/22 15:53 <Ade Nunez CNP - Last Filed: 04/07/22 15:41> Labs: Lab Results 04/07/22 04/07/22 04/07/22 Range/Units 15:53 15:53 15:53 WBC 9.3 (4.8-10.8) X10*3/uL RBC 5.60 (4.60-5.80) X10*6/uL Hgb 11.2 L (14.0-18.0) g/dl Hct 35.6 L (42.0-52.0) % MCV 63.6 L (80.0-98.0) fL MCH 20.0 L (27.0-33.0) pg MCHC 31.5 (31.0-36.0) g/dl RDW 16.3 H (11.0-16.0) % Plt Count 144 L (160-400) X10*3/uL MPV Not Reportable Immature Gran % (Auto) 0.3 (0.0-0.4) % Neut % (Auto) 78.3 H (45-73) % Lymph % (Auto) 8.6 L (20-40) % Powell % (Auto) 7.5 (2-11) % Eos % (Auto) 5.0 H (0-4) % Baso % (Auto) 0.3 (0-2) % Lymph # (Auto) 0.8 L (1.2-4.9) X10*3/uL Powell # (Auto) 0.7 (0.1-1.2) X10*3/uL Eos # (Auto) 0.5 H (0.0-0.4) X10*3/uL Baso # (Auto) 0.0 (0.0-0.2) X10*3/uL Abs Immat Gran (auto) 0.03 (0.00-0.03) X10*3/uL Absolute Neuts (auto) 7.3 (2.0-8.3) x10*3/uL Absolute Nucleated RBC 0.000 (0.0-0.012) X10*3/uL Nucleated RBC % (auto) 0.0 (0.0-0.2) /100WBC Smear Tech's Comments VERIFIED PT 62.0 H (10.0-13.1) SEC INR 5.0 H* D (0.9-1.1) Sodium 145 (135-145) mmol/L Potassium 4.5 (3.3-5.1) mmol/L Chloride 108 (96-108) mmol/L Carbon Dioxide 24 (22-29) mmol/L Anion Gap 18 (12-20) BUN 63 H (9-16) mg/dL Creatinine 2.10 H (0.5-1.4) mg/dL Estim Creat Clear Calc 35.4 Estimated GFR 31 Random Glucose 104 (60-115) mg/dL Calcium 9.0 (8.4-10.2) mg/dL Total Bilirubin 0.7 (0.0-1.0) mg/dL AST 28 (5-37) U/L ALT 24 (0-40) U/L Alkaline Phosphatase 94 (39-117) U/L Total Protein 6.5 (6.5-8.0) g/dL Albumin 4.0 (3.5-5.0) g/dL <Ade Nunez CNP - Last Filed: 04/07/22 15:41> Lab Results 04/07/22 04/07/22 04/07/22 Range/Units 15:53 15:53 15:53 WBC 9.3 (4.8-10.8) X10*3/uL RBC 5.60 (4.60-5.80) X10*6/uL Hgb 11.2 L (14.0-18.0) g/dl Hct 35.6 L (42.0-52.0) % MCV 63.6 L (80.0-98.0) fL MCH 20.0 L (27.0-33.0) pg MCHC 31.5 (31.0-36.0) g/dl RDW 16.3 H (11.0-16.0) % Plt Count 144 L (160-400) X10*3/uL MPV Not Reportable Immature Gran % (Auto) 0.3 (0.0-0.4) % Neut % (Auto) 78.3 H (45-73) % Lymph % (Auto) 8.6 L (20-40) % Powell % (Auto) 7.5 (2-11) % Eos % (Auto) 5.0 H (0-4) % Baso % (Auto) 0.3 (0-2) % Lymph # (Auto) 0.8 L (1.2-4.9) X10*3/uL Powell # (Auto) 0.7 (0.1-1.2) X10*3/uL Eos # (Auto) 0.5 H (0.0-0.4) X10*3/uL Baso # (Auto) 0.0 (0.0-0.2) X10*3/uL Abs Immat Gran (auto) 0.03 (0.00-0.03) X10*3/uL Absolute Neuts (auto) 7.3 (2.0-8.3) x10*3/uL Absolute Nucleated RBC 0.000 (0.0-0.012) X10*3/uL Nucleated RBC % (auto) 0.0 (0.0-0.2) /100WBC Smear Tech's Comments VERIFIED PT 62.0 H (10.0-13.1) SEC INR 5.0 H* D (0.9-1.1) Sodium 145 (135-145) mmol/L Potassium 4.5 (3.3-5.1) mmol/L Chloride 108 (96-108) mmol/L Carbon Dioxide 24 (22-29) mmol/L Anion Gap 18 (12-20) BUN 63 H (9-16) mg/dL Creatinine 2.10 H (0.5-1.4) mg/dL Estim Creat Clear Calc 35.4 Estimated GFR 31 Random Glucose 104 (60-115) mg/dL Calcium 9.0 (8.4-10.2) mg/dL Total Bilirubin 0.7 (0.0-1.0) mg/dL AST 28 (5-37) U/L ALT 24 (0-40) U/L Alkaline Phosphatase 94 (39-117) U/L Total Protein 6.5 (6.5-8.0) g/dL Albumin 4.0 (3.5-5.0) g/dL <Doretha Wolf NP - Last Filed: 04/07/22 18:39> Procedures Epistaxis Control Nostril: Yes right <Doretha Wolf NP - Last Filed: 04/07/22 18:39> Nose prepped with: Yes oxymetazoline <Doretha Wolf NP - Last Filed: 04/07/22 18:39> Direct inspection: Yes anterior source identified <Doretha Wolf NP - Last Filed: 04/07/22 18:39> Direct inspection method: Yes otoscope <Doretha Wolf NP - Last Filed: 04/07/22 18:39> Clots removed by: Yes blowing nose <Doretha Wolf NP - Last Filed: 04/07/22 18:39> Epistaxis treatment: Yes TXA soaked gauze, Yes silver nitrate cautery and Yes inflatable pack <Doretha Wolf NP - Last Filed: 04/07/22 18:39> Results of treatment: Yes bleeding controlled and Yes treatment well tolerated <Doretha Wolf NP - Last Filed: 04/07/22 18:39> Complications: Yes none <Doretha Wolf NP - Last Filed: 04/07/22 18:39> Discharge Plan Discharge Clinical Impression: Epistaxis <Ade Nunez CNP - Last Filed: 04/07/22 15:41> Patient Disposition: Home, Self-Care <Ade Nunez CNP - Last Filed: 04/07/22 15:41> Additional Instructions: Your right nostril has been cauterized due to a nose bleed. Please return to the emergency department with increased bleeding or any other concerning emergent symptom. <Ade Nunez CNP - Last Filed: 04/07/22 15:41> Prescriptions: New amoxicillin-pot clavulanate 875-125 mg tablet 1 tab PO BID 7 Days Qty: 14 0RF No Action atorvastatin 40 mg Tablet 40 mg PO BEDTIME cilostazol 50 mg Tablet 50 mg PO BID isosorbide mononitrate 30 mg Tablet Extended Release 24 Hr 30 mg PO DAILY clopidogrel 75 mg Tablet 75 mg PO DAILY amlodipine 5 mg Tablet 5 mg PO DAILY allopurinol 100 mg Tablet 100 mg PO DAILY pantoprazole 40 mg Tablet,Delayed Release (Dr/Ec) 40 mg PO DAILY doxazosin 4 mg Tablet 4 mg PO BEDTIME furosemide 20 mg Tablet 40 mg PO DAILY glipizide 5 mg Tablet 5 mg PO DAILY oxycodone 5 mg tablet 5 mg PO Q8H PRN (Reason: pain) Qty: 7 0RF Rx Instructions: Hip pain bacitracin 500 unit/gram ointment 1 appl topical BID Qty: 30 0RF cephalexin 500 mg capsule 500 mg PO QID 7 Days Qty: 28 0RF <Ade Nunez CNP - Last Filed: 04/07/22 15:41> Referrals: Chauncey Salmeron MD [Primary Care Provider] - <Ade Nunez CNP - Last Filed: 04/07/22 15:41> Interventions: ED Discharge Assessment Last Done: 04/07/22 18:28 <Ade Nunez CNP - Last Filed: 04/07/22 15:41> Print Language: Cymro <Ade Nunez CNP - Last Filed: 04/07/22 15:41>
[2022-04-07 16:00] LABS: Basophils Percent Auto 0.3 % (0-2); Hemoglobin 11.2 g/dl (14.0-18.0); Imm Gran Abs Auto 0.03 X10*3/uL (0.00-0.03); Imm Gran Pct Auto 0.3 % (0.0-0.4); Lymphocytes Absolute Auto 0.8 X10*3/uL (1.2-4.9); Red Cell Distribution Width 16.3 % (11.0-16.0)
[2022-04-07 16:02] LABS: Eosinophils Absolute Auto 0.5 X10*3/uL (0.0-0.4); Hematocrit 35.6 % (42.0-52.0); Lymphocytes Percent Auto 8.6 % (20-40); Mean Corpuscular HGB Conc 31.5 g/dl (31.0-36.0); Mean Corpuscular Volume 63.6 fL (80.0-98.0); Monocytes Absolute Auto 0.7 X10*3/uL (0.1-1.2); Monocytes Percent Auto 7.5 % (2-11); Neutrophils Absolute Auto 7.3 x10*3/uL (2.0-8.3); Neutrophils Percent Auto 78.3 % (45-73); Platelet Count 144 X10*3/uL (160-400); White Blood Count 9.3 X10*3/uL (4.8-10.8)
[2022-04-07 16:05] LABS: PLT ABN DIST 1
[2022-04-07 16:22] LABS: MANUAL DIFF FLAG SCAN; SCAN SMEAR FLAG 1
[2022-04-07 16:23] LABS: SLIDE REVIEW VERIFIED
[2022-04-07 16:32] LABS: Alanine Aminotransferase 24 U/L (0-40); Alkaline Phosphatase 94 U/L (39-117); Anion Gap 18 (12-20); Aspartate Amino Transferase 28 U/L (5-37); Bilirubin Total 0.7 mg/dL (0.0-1.0); Blood Urea Nitrogen 63 mg/dL (9-16); Carbon Dioxide 24 mmol/L (22-29); Chloride 108 mmol/L (96-108); Creatinine Clr Calc Pharmacy 35.4; Estimated Glomerular Filt Rate 31; Glucose Random 104 mg/dL (60-115); Potassium 4.5 mmol/L (3.3-5.1); Sodium 145 mmol/L (135-145); Total Protein 6.5 g/dL (6.5-8.0)
[2022-04-07] MEDS: Silver Nitrate Applicator STICK..EA. 1 APPL TOPICAL (16:45)
[2022-04-07] MEDS: Oxymetazoline HCl 0.05 % Nasal 15 ML SPRAY 2 SPRAY NOSTRIL-B (16:45)
[2022-04-07] MEDS: Tranexamic Acid 1,000 MG/10 ML VIAL 500 MG INTRANASAL (17:34)
== END 2022-04-07 18:36 | disposition home or self-care (01) ==
PROVIDERS: Nurse Practitioner Family; Emergency Provider Internal Medicine; PCP Internal Medicine
DX: R04.0 Epistaxis (principal); I10 Essential (primary) hypertension; Z79.899 Other long term (current) drug therapy
CPT/HCPCS: 30901; 36415; 80053; 85025; 85610; 99284

== ENCOUNTER 2024-09-05 07:56 | Emergency (ER) | payer MEDICARE, OTHER, SELFPAY ==
[2024-09-05 08:02] VITALS: BP 165/52; PULSE 61; RESP 18; TEMP 36.5; O2SAT 95; BMI 31.2
--- NOTE | 2024-09-05 09:06 | ED.SKABFB ---
HPI - Skin/Abscess/Foreign Bdy General Chief complaint: Skin/Abscess/Foreign Body Stated complaint: right leg/ankle infection Time Seen by Provider: 09/05/24 08:17 Source: patient Mode of arrival: ambulatory Limitations: no limitations History of Present Illness ED Provider: Ade Nunez NP HPI narrative: Patient is a 78-year-old male with past medical history of hypertension, CHF, diabetes, CKD, PAD, BPH, gout, hypercholesterolemia history of atrial fibrillation on anticoagulation has Watchman device, pacemaker who presents emergency department for evaluation of lesions to the right lower extremity was 3 days ago he noticed blisters to this area he states it is not uncommon for him to get blisters in the occasionally. However 1 was larger and has since opened now is painful. He reports compliance with his medications. He denies any notable change to his mild pedal edema recently, denies chest pain or shortness of breath, no calf pain or tenderness. Fevers and chills. Related Data Home Medications ?Medication ?Instructions ?Recorded ?Confirmed allopurinol 100 mg tablet 100 mg PO DAILY 11/27/20 11/27/20 amlodipine 5 mg tablet 5 mg PO DAILY 11/27/20 11/27/20 atorvastatin 40 mg tablet 40 mg PO BEDTIME 11/27/20 11/27/20 cilostazol 50 mg tablet 50 mg PO BID 11/27/20 11/27/20 clopidogrel 75 mg tablet 75 mg PO DAILY 11/27/20 11/27/20 doxazosin 4 mg tablet 4 mg PO BEDTIME 11/27/20 11/27/20 furosemide 20 mg tablet 40 mg PO DAILY 11/27/20 11/27/20 glipizide 5 mg tablet 5 mg PO DAILY 11/27/20 11/27/20 isosorbide mononitrate 30 mg 30 mg PO DAILY 11/27/20 11/27/20 tablet,extended release 24 hr pantoprazole 40 mg tablet,delayed 40 mg PO DAILY 11/27/20 11/27/20 release Previous Rx's ?Medication ?Instructions ?Recorded oxycodone 5 mg tablet 5 mg PO Q8H PRN pain #7 tabs 03/08/21 bacitracin 500 unit/gram topical 1 appl topical BID #30 grams 10/16/21 ointment cephalexin 500 mg capsule 500 mg PO QID 7 days #28 caps 10/16/21 amoxicillin 875 mg-potassium 1 tab PO BID 7 days #14 tabs 04/07/22 clavulanate 125 mg tablet cephalexin 500 mg capsule 500 mg PO Q8H #21 caps 09/05/24 doxycycline hyclate 100 mg capsule 100 mg PO BID #14 caps 09/05/24 Allergies Allergy/AdvReac Type Severity Reaction Status Date / Time sulfamethoxazole (From Allergy Affected Verified 09/05/24 08:05 Bactrim) Kidneys trimethoprim (From Bactrim) Allergy Affected Verified 09/05/24 08:05 Kidneys Review of Systems Review of Systems: Yes all other systems are reviewed and are negative [facility] Past Medical History Attestation statement: The following information was validated with the patient. 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 CKD (chronic kidney disease), stage III Peripheral arterial occlusive disease Arthritis GERD (gastroesophageal reflux disease) BPH (benign prostatic hyperplasia) Gout Diabetes CHF (congestive heart failure) HTN (hypertension) Elevated cholesterol CAD (coronary artery disease) Surgical History History of bilateral total hip arthroplasty History of carotid endarterectomy Hx of angioplasty Hx of CABG Hx of coronary angioplasty Social History Social History Are you a primary patient care specialist to a significant other at home: No Do you presently have visiting nurse or other home services: No Patient Tobacco Use Status: Never used Tobacco Advance Directives: No Advance Directives Information Provided: No Do you have a plan to hurt others: No Plan Physical Exam Vital Signs: Vital Signs: Last Vital Signs Temp 97.7 F 09/05/24 08:02 Pulse 61 09/05/24 08:02 Resp 18 09/05/24 08:02 BP 165/52 H 09/05/24 08:02 Pulse Ox 95 09/05/24 08:02 O2 Del Method Room Air 09/05/24 08:02 BMI result Body Mass Index 31.2 Appearance: Alert.?Oriented to person, place and time. No acute distress.?Normal affect. Eyes: Pupils equal, round and reactive to light.? ENT: Pharynx normal.?? Neck: Normal inspection.? Neck supple.?? CVS: Heart sounds normal. Normal heart rate and rhythm.? Pulses normal.?? Respiratory: No respiratory distress.? Lung sounds clear to auscultation bilaterally?? Abdomen: Soft and non-tender. Normoactive bowel sounds. Skin: Skin warm and dry.? Normal skin color.? ? Extremities: No lower extremity edema.? No calf ttp. Photos below of the right lower extremity Neuro: Moves all extremities spontaneously. Sensation intact bilaterally. No focal neuro deficits. Ambulates with normal steady gait. Medical Decision Making Medical Decision Making [facility] Narrative: Patient is a 78-year-old male with past medical history of hypertension, CHF, diabetes, CKD, PAD, BPH, gout, hypercholesterolemia history of atrial fibrillation on anticoagulation has Watchman device, pacemaker who presents emergency department for evaluation of right lower extremity wound secondary to recently open blisters as per HPI. Overall he is well-appearing, nontoxic, afebrile, no hypotension. Physical examination appears most consistent with cellulitis secondary to recently open blisters. Extremities neurovascularly intact distally. Not consistent with arterial occlusion calf tenderness upon palpation, pain is localized to the wounds, lower suspicion for DVT. He will benefit from a course of antibiotics, bacitracin and nonadherent dressing. Prescription for antibiotics sent to pharmacy, renally dose cephalexin 500 mg Q 8 hours X 7 days, doxycycline 100 mg q.12 hours X 7 days. Advised outpatient follow-up with primary care doctor. Discussed strict return precautions. All questions answered. Stable for discharge Differential Diagnosis Differential Diagnoses: The differential diagnosis associated with the presentation includes (See narrative above) Admission/Observation Consideration of admission/observation: Escalation of care including admission/observation considered Lab Data [facility] Lab Attestation statement: I reviewed the patient's lab results. CBC is without leukocytosis, has a microcytic anemia not meeting transfusion criteria, mild thrombocytopenia 145,000. BUN creatinine 83/3.14 most recent labs in our medical record for comparison or from 2022, accessed records from [facility], 2024 BUN of 81, creatinine 3.06 apparent consistent with most recent baseline do not suspect SEGUNDO. 09/05/24 10:11 09/05/24 10:11 Labs: Lab Results 09/05/24 Range/Units 10:11 WBC 8.1 (4.8-10.8) X10*3/uL RBC 5.15 (4.60-5.80) X10*6/uL Hgb 10.6 L (14.0-18.0) g/dl Hct 33.8 L (42.0-52.0) % MCV 65.6 L (80.0-98.0) fL MCH 20.6 L (27.0-33.0) pg MCHC 31.4 (31.0-36.0) g/dl RDW 17.7 H (11.0-16.0) % Plt Count 145 L (160-400) X10*3/uL MPV TNP Immature Gran % (Auto) 0.5 H (0.0-0.4) % Neut % (Auto) 75.7 H (45-73) % Lymph % (Auto) 6.9 L (20-40) % [place] % (Auto) 10.9 (2-11) % Eos % (Auto) 5.6 H (0-4) % Baso % (Auto) 0.4 (0-2) % Lymph # (Auto) 0.6 L (1.2-4.9) X10*3/uL [place] # (Auto) 0.9 (0.1-1.2) X10*3/uL Eos # (Auto) 0.5 H (0.0-0.4) X10*3/uL Baso # (Auto) 0.0 (0.0-0.2) X10*3/uL Abs Immat Gran (auto) 0.04 H (0.00-0.03) X10*3/uL Absolute Neuts (auto) 6.1 (2.0-8.3) x10*3/uL Absolute Nucleated RBC 0.000 (0.0-0.012) X10*3/uL Nucleated RBC % (auto) 0.0 (0.0-0.2) /100WBC Sodium 146 H (135-145) mmol/L Potassium 5.1 (3.3-5.1) mmol/L Chloride 109 H (96-108) mmol/L Carbon Dioxide 29 (22-29) mmol/L Anion Gap 13 (12-20) BUN 83 H (9-16) mg/dL Creatinine 3.14 H (0.5-1.4) mg/dL Estim Creat Clear Calc 23.9 Estimated GFR 19 Random Glucose 103 (60-115) mg/dL Calcium 9.4 (8.4-10.2) mg/dL Total Bilirubin 0.7 (0.0-1.0) mg/dL AST 30 (5-37) U/L ALT 19 (0-40) U/L Alkaline Phosphatase 71 (39-117) U/L Total Protein 6.8 (6.5-8.0) g/dL Albumin 4.2 (3.5-5.0) g/dL External Record Review External record reviewed: Outpatient record Tests considered The following testing was considered but not selected: Defer duplex ultrasound imaging, see narrative above Prescription Management I considered prescription management with: Antibiotic Chronic Conditions Patient?s care impacted by: Other (See narrative above) Discharge Plan Discharge Clinical Impression: Cellulitis Patient Disposition: Home, Self-Care Instructions: Cellulitis (ED) Additional Instructions: Follow-up with the primary care doctor early this coming week. Return with any new or worsening symptoms or concerns which include but is not limited to increasing redness pain swelling, pus-like drainage, fevers, chills. Prescription for antibiotics has been sent to your pharmacy, please complete the entire course. Do not skip any doses or stop taking early even if you begin to feel better. While taking antibiotics, please include probiotics that can be found over the counter or yogurt in your diet. If symptoms of a yeast infection or diarrhea occur, please seek evaluation. On doxycycline, do not take pills immediately before going to bed and swallow pills with plenty of water. Avoid direct sunlight, iron, antacids, and Pepto Bismol. Call your provider if you develop new ringing in your ears, new problems hearing, dizziness, difficulty swallowing, rash, abdominal discomfort, nausea, or diarrhea.? Prescriptions: New doxycycline hyclate 100 mg capsule 100 mg PO BID Qty: 14 0RF cephalexin 500 mg capsule 500 mg PO Q8H Qty: 21 0RF No Action atorvastatin 40 mg Tablet 40 mg PO BEDTIME cilostazol 50 mg Tablet 50 mg PO BID isosorbide mononitrate 30 mg Tablet Extended Release 24 Hr 30 mg PO DAILY clopidogrel 75 mg Tablet 75 mg PO DAILY amlodipine 5 mg Tablet 5 mg PO DAILY allopurinol 100 mg Tablet 100 mg PO DAILY pantoprazole 40 mg Tablet,Delayed Release (Dr/Ec) 40 mg PO DAILY doxazosin 4 mg Tablet 4 mg PO BEDTIME furosemide 20 mg Tablet 40 mg PO DAILY glipizide 5 mg Tablet 5 mg PO DAILY oxycodone 5 mg tablet 5 mg PO Q8H PRN (Reason: pain) Qty: 7 0RF Rx Instructions: Hip pain bacitracin 500 unit/gram ointment 1 appl topical BID Qty: 30 0RF cephalexin 500 mg capsule 500 mg PO QID 7 Days Qty: 28 0RF amoxicillin-pot clavulanate 875-125 mg tablet 1 tab PO BID 7 Days Qty: 14 0RF Print Language: Faroese
[2024-09-05 10:15] LABS: MANUAL DIFF FLAG NO
[2024-09-05 10:18] LABS: Basophils Percent Auto 0.4 % (0-2); Eosinophils Absolute Auto 0.5 X10*3/uL (0.0-0.4); Eosinophils Percent Auto 5.6 % (0-4); Hematocrit 33.8 % (42.0-52.0); Hemoglobin 10.6 g/dl (14.0-18.0); Imm Gran Abs Auto 0.04 X10*3/uL (0.00-0.03); Imm Gran Pct Auto 0.5 % (0.0-0.4); Lymphocytes Absolute Auto 0.6 X10*3/uL (1.2-4.9); Lymphocytes Percent Auto 6.9 % (20-40); Mean Corpuscular HGB Conc 31.4 g/dl (31.0-36.0); Mean Corpuscular Hemoglobin 20.6 pg (27.0-33.0); Mean Corpuscular Volume 65.6 fL (80.0-98.0); Monocytes Absolute Auto 0.9 X10*3/uL (0.1-1.2); Monocytes Percent Auto 10.9 % (2-11); Neutrophils Absolute Auto 6.1 x10*3/uL (2.0-8.3); Neutrophils Percent Auto 75.7 % (45-73); Platelet Count 145 X10*3/uL (160-400); Red Blood Count 5.15 X10*6/uL (4.60-5.80); Red Cell Distribution Width 17.7 % (11.0-16.0); White Blood Count 8.1 X10*3/uL (4.8-10.8)
[2024-09-05 10:29] LABS: Alanine Aminotransferase 19 U/L (0-40); Albumin Level 4.2 g/dL (3.5-5.0); Alkaline Phosphatase 71 U/L (39-117); Anion Gap 13 (12-20); Aspartate Amino Transferase 30 U/L (5-37); Bilirubin Total 0.7 mg/dL (0.0-1.0); Blood Urea Nitrogen 83 mg/dL (9-16); Calcium 9.4 mg/dL (8.4-10.2); Carbon Dioxide 29 mmol/L (22-29); Chloride 109 mmol/L (96-108); Creatinine Clr Calc Pharmacy 23.9; Estimated Glomerular Filt Rate 19; Glucose Random 103 mg/dL (60-115); Potassium 5.1 mmol/L (3.3-5.1); Sodium 146 mmol/L (135-145); Total Protein 6.8 g/dL (6.5-8.0)
[2024-09-05 10:35] LABS: B Type Natriuretic Peptide 448 pg/mL (<100)
[2024-09-05] MEDS: Bacitracin Oint 0.9 GM PACKET 1 APPL TOPICAL (11:07)
[2024-09-05 11:16] VITALS: BP 165/52; PULSE 61; RESP 18; TEMP 36.5; O2SAT 95
== END 2024-09-05 11:16 | disposition home or self-care (01) ==
PROVIDERS: Nurse Practitioner Family; Emergency Provider Emergency Medicine; PCP Internal Medicine
DX: L03.115 Cellulitis of right lower limb (principal); I48.91 Unspecified atrial fibrillation; I12.9 Hypertensive chronic kidney disease with stage 1 through stage 4 chronic kidney disease, or unspecified chronic kidney disease; E11.22 Type 2 diabetes mellitus with diabetic chronic kidney disease; N18.30 Chronic kidney disease, stage 3 unspecified; Z79.899 Other long term (current) drug therapy
CPT/HCPCS: 36415; 80053; 83880; 85025; 99283; 99284

== ENCOUNTER 2024-09-08 10:33 | Emergency (ER) | payer MEDICARE, OTHER, SELFPAY ==
--- NOTE | 2024-09-08 10:53 | ED.GENADULT ---
HPI - General Adult General Chief complaint: Skin/Abscess/Foreign Body Stated complaint: infection not getting better Time Seen by Provider: 09/08/24 12:32 History of Present Illness ED Provider: Blaise GILBERT narrative: The patient is a 78-year-old male. He has a history of renal insufficiency. He also has a history of chronic atrial fibrillation. He has been taken off anticoagulation because he received the watchman device several months ago. The patient came to the emergency room 3 days ago with sores and redness on his right lower leg. He was felt to have a cellulitis and was started on doxycycline and cephalexin. He was discharged. He returns today for an evaluation of his leg. He says that he has intermittent episodes of a sharp brief discomfort in the leg that he finds alarming. He feels on the whole the redness might looks slightly better but he does not have a clear sense that he is improving. He does not feel the redness is getting any worse. He has had no fever, sweats, chills. Related Data Home Medications ?Medication ?Instructions ?Recorded ?Confirmed allopurinol 100 mg tablet 100 mg PO DAILY 11/27/20 11/27/20 amlodipine 5 mg tablet 5 mg PO DAILY 11/27/20 11/27/20 atorvastatin 40 mg tablet 40 mg PO BEDTIME 11/27/20 11/27/20 cilostazol 50 mg tablet 50 mg PO BID 11/27/20 11/27/20 clopidogrel 75 mg tablet 75 mg PO DAILY 11/27/20 11/27/20 doxazosin 4 mg tablet 4 mg PO BEDTIME 11/27/20 11/27/20 furosemide 20 mg tablet 40 mg PO DAILY 11/27/20 11/27/20 glipizide 5 mg tablet 5 mg PO DAILY 11/27/20 11/27/20 isosorbide mononitrate 30 mg 30 mg PO DAILY 11/27/20 11/27/20 tablet,extended release 24 hr pantoprazole 40 mg tablet,delayed 40 mg PO DAILY 11/27/20 11/27/20 release Previous Rx's ?Medication ?Instructions ?Recorded oxycodone 5 mg tablet 5 mg PO Q8H PRN pain #7 tabs 03/08/21 bacitracin 500 unit/gram topical 1 appl topical BID #30 grams 10/16/21 ointment cephalexin 500 mg capsule 500 mg PO QID 7 days #28 caps 10/16/21 amoxicillin 875 mg-potassium 1 tab PO BID 7 days #14 tabs 04/07/22 clavulanate 125 mg tablet cephalexin 500 mg capsule 500 mg PO Q8H #21 caps 09/05/24 doxycycline hyclate 100 mg capsule 100 mg PO BID #14 caps 09/05/24 mupirocin 2 % topical ointment 1 appl topical BID #22 grams 09/08/24 (Centany) Allergies Allergy/AdvReac Type Severity Reaction Status Date / Time sulfamethoxazole (From Allergy Affected Verified 09/08/24 10:58 Bactrim) Kidneys trimethoprim (From Bactrim) Allergy Affected Verified 09/08/24 10:58 Kidneys Review of Systems Review of Systems: Yes all other systems are reviewed and are negative [facility] Past Medical History Medical History AV block, 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 CKD (chronic kidney disease), stage III Peripheral arterial occlusive disease Arthritis GERD (gastroesophageal reflux disease) BPH (benign prostatic hyperplasia) Gout Diabetes CHF (congestive heart failure) HTN (hypertension) Elevated cholesterol CAD (coronary artery disease) Surgical History History of bilateral total hip arthroplasty History of carotid endarterectomy Hx of angioplasty Hx of CABG Hx of coronary angioplasty Social History Social History Are you a primary senior resident care director to a significant other at home: No Do you presently have visiting nurse or other home services: No Patient Tobacco Use Status: Never used Tobacco Advance Directives: No Advance Directives Information Provided: Yes Physical Exam ED Vital Signs: Vital Signs - 24 hr 09/08/24 13:23 Temperature 97.9 F Pulse Rate 60 Respiratory Rate 16 Blood Pressure 161/60 H Pulse Oximetry 95 Oxygen Delivery Method Room Air BMI result Body Mass Index 29.3 Const Other: The patient is a 78-year-old male who was awake and alert. He looks as if he might be somewhat chronically ill but he does not appear obviously acutely ill. He has obvious redness to the right anterior lower leg. He is pleasant and cooperative and nontoxic appearing. HENMT Other: The face is symmetrical. ?Mucous membranes moist. Eyes Other: Pupils are round equal, conjunctivae are clear, extraocular movements intact Neck Neck: Yes normal visual inspection, Yes full ROM and Yes no JVD Resp Effort & Inspection: normal respiratory effort Auscultation: clear to auscultation bilaterally Cardio Rate: regular rate Rhythm: regular rhythm Heart sounds: S1 normal heart sound present and S2 normal heart sound present Skin Other: The patient has an area of erythema and warmth and tenderness to the anterior casarez. Neuro Other: The patient is awake and alert with a normal mental status. Cranial nerves are grossly intact. He has intact motor function and sensation in the right leg and foot. Extrem Other: Patient has an area of redness and tenderness to the anterior right lower leg with some excoriated areas. The redness is not completely circumferential. It extends from the ankle about [address] the anterior portion of the lower leg. The right foot is warm and well-perfused. The patient can move his knee and ankle joints easily and normally. Course Course Course Narrative: This is a rapid medical exam performed by Dorothea Villegas NP: Additional HPI, ROS, PE not included below will be deferred to primary provider. Patient is a 78-year-old male with history of CKD 3, DM, CHF, CAD, HTN, gout, GERD, BPH, PAD presenting to the ED with complaint of worsening pain and erythema to right ankle. Seen here Friday, pain not improving on antibiotics which he has been taking as prescribed, has also been keeping leg elevated. Plan: labs Medications Administered Discontinued Medications Generic Name Dose Route Start Last Admin Trade Name Matiq PRN Reason Stop Dose Admin Bacitracin 1 appl 09/08/24 13:18 09/08/24 13:22 Bacitracin Oint 0.9 Gm Packet TOPICAL 09/08/24 13:19 1 appl ONCE ONE Administration Protocol Mupirocin 1 appl 09/08/24 13:00 09/08/24 13:22 Mupirocin 2 % Oint 22 Gm Tube TOPICAL 09/08/24 13:01 Not Given ONCE ONE Protocol Medical Decision Making Medical Decision Making MDM Narrative: The patient returns to the emergency department 3 days after being started on a course of cephalexin and doxycycline for a right lower leg cellulitis. He feels that the redness may be slightly improved but he has been having intermittent sharp stabbing pains in the region of the right casarez. No persistent new discomfort however. Overall the patient does not seem to have obvious worsening of a cellulitis. His labs are unremarkable. I am not convinced that he is failing outpatient management of this infection. I used a surgical marking pen to outline the redness and explained to the patient that he should continue his current antibiotics and should continue to rest and take it easy and stay off the leg and keep it elevated. He was prescribed doxycycline 100 mg b.i.d. and cephalexin 500 mg t.i.d.. He has poor chronic renal function. I think that on the basis of his renal function the cephalexin can be reduced to 500 mg b.i.d.. He was therefore ultimately reassured and discharged and should return if worse. He should follow up with his PCP for re-evaluation as well. He was given a prescription for mupirocin which you may use to the open areas within the area of cellulitis. Lab Data 09/08/24 11:15 09/08/24 11:15 Labs: Lab Results 09/08/24 Range/Units 11:15 WBC 8.5 (4.8-10.8) X10*3/uL RBC 5.23 (4.60-5.80) X10*6/uL Hgb 10.8 L (14.0-18.0) g/dl Hct 34.0 L (42.0-52.0) % MCV 65.0 L (80.0-98.0) fL MCH 20.7 L (27.0-33.0) pg MCHC 31.8 (31.0-36.0) g/dl RDW 17.4 H (11.0-16.0) % Plt Count 155 L (160-400) X10*3/uL MPV Not Reportable Immature Gran % (Auto) 0.4 (0.0-0.4) % Neut % (Auto) 80.8 H (45-73) % Lymph % (Auto) 6.3 L (20-40) % [place] % (Auto) 8.0 (2-11) % Eos % (Auto) 4.1 H (0-4) % Baso % (Auto) 0.4 (0-2) % Lymph # (Auto) 0.5 L (1.2-4.9) X10*3/uL [place] # (Auto) 0.7 (0.1-1.2) X10*3/uL Eos # (Auto) 0.4 (0.0-0.4) X10*3/uL Baso # (Auto) 0.0 (0.0-0.2) X10*3/uL Abs Immat Gran (auto) 0.03 (0.00-0.03) X10*3/uL Absolute Neuts (auto) 6.9 (2.0-8.3) x10*3/uL Absolute Nucleated RBC 0.000 (0.0-0.012) X10*3/uL Nucleated RBC % (auto) 0.0 (0.0-0.2) /100WBC ESR 16 H (0-15) MM/HR Sodium 141 (135-145) mmol/L Potassium 4.4 (3.3-5.1) mmol/L Chloride 106 (96-108) mmol/L Carbon Dioxide 27 (22-29) mmol/L Anion Gap 12 (12-20) BUN 70 H (9-16) mg/dL Creatinine 3.20 H (0.5-1.4) mg/dL Estim Creat Clear Calc 22.7 Estimated GFR 19 Random Glucose 139 H (60-115) mg/dL Lactic Acid 1.2 (0.5-2.0) mmol/L Calcium 9.3 (8.4-10.2) mg/dL Total Bilirubin 0.8 (0.0-1.0) mg/dL AST 30 (5-37) U/L ALT 21 (0-40) U/L Alkaline Phosphatase 75 (39-117) U/L C-Reactive Protein 2.75 H (< or = 0.50) mg/dL Total Protein 6.8 (6.5-8.0) g/dL Albumin 4.1 (3.5-5.0) g/dL Discharge Plan Discharge Clinical Impression: Cellulitis of right leg Patient Disposition: Home, Self-Care Additional Instructions: At this point I do not think there is any obvious worsening of your infection. I think you may continue to treat yourself at home. However I would make the following recommendations: Apply mupirocin to the open areas of skin 2 times a day. Also, given your renal function, I think you may reduce the cephalexin to 500 mg twice a day instead of 3 times a day. Otherwise please continue to rest and take it easy and try to stay off the leg. Keep the leg elevated as much as possible. Please follow up in the next few days with your regular doctor for a 2nd opinion. If you develop a fever or if the redness is clearly extending beyond the inked margins or if you simply feel significantly worse please return to the emergency room for another evaluation. Prescriptions: New mupirocin [Centany] 2 % ointment 1 appl topical BID Qty: 22 0RF No Action atorvastatin 40 mg Tablet 40 mg PO BEDTIME cilostazol 50 mg Tablet 50 mg PO BID isosorbide mononitrate 30 mg Tablet Extended Release 24 Hr 30 mg PO DAILY clopidogrel 75 mg Tablet 75 mg PO DAILY amlodipine 5 mg Tablet 5 mg PO DAILY allopurinol 100 mg Tablet 100 mg PO DAILY pantoprazole 40 mg Tablet,Delayed Release (Dr/Ec) 40 mg PO DAILY doxazosin 4 mg Tablet 4 mg PO BEDTIME furosemide 20 mg Tablet 40 mg PO DAILY glipizide 5 mg Tablet 5 mg PO DAILY oxycodone 5 mg tablet 5 mg PO Q8H PRN (Reason: pain) Qty: 7 0RF Rx Instructions: Hip pain bacitracin 500 unit/gram ointment 1 appl topical BID Qty: 30 0RF cephalexin 500 mg capsule 500 mg PO QID 7 Days Qty: 28 0RF amoxicillin-pot clavulanate 875-125 mg tablet 1 tab PO BID 7 Days Qty: 14 0RF doxycycline hyclate 100 mg capsule 100 mg PO BID Qty: 14 0RF cephalexin 500 mg capsule 500 mg PO Q8H Qty: 21 0RF Referrals: Chauncey Salmeron MD [Primary Care Provider, Internal Medicine] Referral Note: cellulitis Interventions: ED Discharge Assessment Last Done: 09/08/24 13:23 Discharge Date/Time: 09/08/24 13:32 Print Language: Uzbek
[2024-09-08 10:54] VITALS: BP 147/53; PULSE 60; RESP 18; TEMP 36; O2SAT 96; BMI 29.3
[2024-09-08 11:23] LABS: MANUAL DIFF FLAG NO
[2024-09-08 11:27] LABS: Basophils Percent Auto 0.4 % (0-2); Eosinophils Absolute Auto 0.4 X10*3/uL (0.0-0.4); Eosinophils Percent Auto 4.1 % (0-4); Hemoglobin 10.8 g/dl (14.0-18.0); Imm Gran Abs Auto 0.03 X10*3/uL (0.00-0.03); Imm Gran Pct Auto 0.4 % (0.0-0.4); Lymphocytes Absolute Auto 0.5 X10*3/uL (1.2-4.9); Lymphocytes Percent Auto 6.3 % (20-40); Mean Corpuscular HGB Conc 31.8 g/dl (31.0-36.0); Mean Corpuscular Hemoglobin 20.7 pg (27.0-33.0); Monocytes Absolute Auto 0.7 X10*3/uL (0.1-1.2); Neutrophils Absolute Auto 6.9 x10*3/uL (2.0-8.3); Neutrophils Percent Auto 80.8 % (45-73); Platelet Count 155 X10*3/uL (160-400); Red Blood Count 5.23 X10*6/uL (4.60-5.80); Red Cell Distribution Width 17.4 % (11.0-16.0); White Blood Count 8.5 X10*3/uL (4.8-10.8)
[2024-09-08 11:38] LABS: Alanine Aminotransferase 21 U/L (0-40); Albumin Level 4.1 g/dL (3.5-5.0); Alkaline Phosphatase 75 U/L (39-117); Anion Gap 12 (12-20); Aspartate Amino Transferase 30 U/L (5-37); Bilirubin Total 0.8 mg/dL (0.0-1.0); Blood Urea Nitrogen 70 mg/dL (9-16); C Reactive Protein 2.75 mg/dL (< or = 0.50); Calcium 9.3 mg/dL (8.4-10.2); Carbon Dioxide 27 mmol/L (22-29); Chloride 106 mmol/L (96-108); Creatinine Clr Calc Pharmacy 22.7; Estimated Glomerular Filt Rate 19; Glucose Random 139 mg/dL (60-115); Lactic Acid 1.2 mmol/L (0.5-2.0); Potassium 4.4 mmol/L (3.3-5.1); Sodium 141 mmol/L (135-145); Total Protein 6.8 g/dL (6.5-8.0)
[2024-09-08 12:05] LABS: Erythrocyte Sedimentation Rate 16 MM/HR (0-15)
[2024-09-08] MEDS: Bacitracin Oint 0.9 GM PACKET 1 APPL TOPICAL (13:22)
[2024-09-08 13:23] VITALS: BP 161/60; PULSE 60; RESP 16; TEMP 36.6; O2SAT 95
--- OUTSIDE RECORDS SUMMARY | 2024-09-08 13:46 | XMS_ITS | Clinical Summary ---
Author Organization [facility] Address [address] [place] [address] Phone Care Team Providers Care Sort Supervisor Name Role Phone Chauncey Salmeron MD Primary Care Provider [phone] Allergies Active Allergy Reactions Criticality Noted Date Comments Sulfamethoxazole-Trimethoprim 2020 Cefazolin 03/25/2022 Lisinopril 03/25/2022 Oxycodone Other (see comments) 03/25/2022 Medications clopidogrel (PLAVIX) 75 MG tablet Take 1 tablet by mouth 1 (one) time each day 6 Active glipiZIDE (GLUCOTROL XL) 5 MG 24 hr tablet Take 1 tablet by mouth 1 (one) time each day Active pantoprazole (PROTONIX) 40 MG EC tablet Take 1 tablet by mouth 1 (one) time each day Active allopurinol (ZYLOPRIM) 100 MG tablet Take 200 mg by mouth 1 (one) time each day 1 Active atorvastatin (LIPITOR) 40 MG tablet Take 40 mg by mouth 1 (one) time each day in the evening 1 Active metoprolol succinate XL (TOPROL XL) 25 MG 24 hr tablet Take 1 tablet (25 mg total) by mouth 1 (one) time each day 30 tablet 3 2 Active furosemide (LASIX) 80 MG tablet Take 80 mg by mouth in the morning and 80 mg in the evening. 3 Active Aspirin Low Dose 81 MG EC tablet Take 81 mg by mouth 1 (one) time each day 3 Active isosorbide mononitrate (IMDUR) 30 MG 24 hr tablet Take 1 tablet (30 mg total) by mouth 1 (one) time each day 90 tablet 3 3 Active Dapagliflozin Propanediol (Farxiga) 10 MG tablet Take 10 mg by mouth 1 (one) time each day 90 tablet 2 4 Active Additional Information Patient not taking.Reported on 03/01/2024 apixaban (Eliquis) 2.5 MG tablet Take 2.5 mg by mouth in the morning and 2.5 mg in the evening. Active hydrALAZINE 100 MG tablet TAKE 1 TABLET (100 MG TOTAL) BY MOUTH IN THE MORNING AND IN THE EVENING 180 tablet 3 4 Active doxazosin (CARDURA) 4 MG tablet TAKE 1 TABLET BY MOUTH EVERY NIGHT. 90 tablet 3 5 Active Active Problems Problem Noted Date Diagnosed Date Chronic kidney disease, stage 4 (severe) 024 Chronic kidney disease, stage 4 (severe) 024 Chronic kidney disease, stage 4 (severe) 023 Type 2 diabetes mellitus wit h diabetic chronic kidney disease 12/18/2022 Renal osteodystrophy 12/18/2022 History of aortic valve replacement 05/27/2022 12/18/2022 Heart failure 03/25/2022 12/18/2022 Chronic systolic heart failure 03/25/2022 1 Overview (12/18/2022): Acute on Laceration of left lower leg 03/25/202206/2022 Hypertensive emergency 03/25/2022 History of cardiac catheterization 03/25/2022 12/18/2022 Overview (12/18/2022): Done at [facility] on 03/19/22 with SAMARA - indications: CHF Non-pressure chronic ulcer o f left lower leg limited to breakdown of skin 03/25/2022 12/18/2022 Cardiac enzyme or marker above reference range 0 03/25/2022 Bradycardia 03/06/2022 12/18/2022 Overview (12/18/2022): Last Assessment & Plan: Patient presents today for triage visit. Dr. Alfaro was also present for a portion of the visit. Initial EKG obtained showed a junctional bradycardia at 40 bpm. We did keep patient on the cafeteria monitor for a more prolonged period and there was some question of bradycardia with premature atrial contractions versus atrial fibrillation with slow ventricular response. At this time, we are placing a 24-hour Holter monitor today. The patient is stopping his metoprolol. He last took a dose yesterday. He denies any dizziness or lightheadedness. He has had no syncopal episodes. He overall feels well and has no complaints. I will follow up with the patient re: the holter results. Aortic valve stenosis 01/22/2022 12/18/2022 Overview (12/18/2022): Last Assessment & Plan: Patient with history of severe aortic valve stenosis. Echocardiogram done during his recent hospitalization in February 2022 showed severe aortic stenosis with valve area 0.95 cm with mean gradient of 40 mmHg with a dimensionless index of 0.22. During the hospitalization, he underwent left heart catheterization which showed significant disease in the LAD distal to MENDEZ touchdown and SVG graft to PDA and given the fact he was asymptomatic, recommendation was to continue medical treatment and plan for TAVR work-up as an outpatient once renal function was stable. Patient denies any shortness of breath with exertion, chest pain, peripheral edema. He understands I am in the process of getting him a close follow-up with either Dr. Sales or Dr. Gipson to continue the TAVR work-up. I advised that myself or this office will be in contact with him. Prosthetic joint infection 07/18/2021 Overview (07/18/2021): left hip, cx MSSA Old myocardial infarction 07/18/2021 Obstructive sleep apnea syndrome 07/18/2021 Hyperlipidemia 07/18/2021 Gout 07/18/2021 Fracture of rib 07/18/2021 Diabetes mellitus 07/18/2021 Carotid artery stenosis 07/18/2021 Overview (07/18/2021): done at [facility] Hypertension 12/22/2020 Acute nontraumatic kidney injury 08/03/2020 Stage 3b chronic kidney disease 08/03/2020 Hypertensive renal disease 08/03/2020 Coronary arteriosclerosis 09/16/20192022 Overview (12/18/2022): With vein harvest from bilateral lower extremities Last Assessment & Plan: Patient with history of coronary artery disease. He denies any chest pain at rest or with exertion. He is on secondary preventative therapy with aspirin and atorvastatin. He is not on beta-hawa therapy given his resting bradycardia.. Stenosis of bilateral carotid arteries 9 12/18/2022 Immunizations Immunization Administration Dates Next Due Influenza Split High Dose Pr eservative Free IM 12/06/2019 Jamaal SARS-COV-2 02/14/2021,06/21/2020, 021 Moderna SARS-COV-2 07/30/2021,01/13/2021 Pneumococcal Conjugate 13-Valent 04/09/2016 Family History Medical History Relation Comments Diabetes Mother Hypertension Mother Relation Status Comments Father Mother Social History Tobacco Use Types Packs/Day Years Used Date Smoking Tobacco: Never Smokeless Tobacco: Never Tobacco Cessation:Counseling Given: Not Answered Alcohol Use Standard Drinks/Week Comments Yes 0 (1 standard drink = 0.6 oz pure alcohol) Alcoholic Drinks/day: Occasional social drink Sex and Gender Information Value Date Recorded Sex Assigned at Not on file Legal Sex Male 5:06 PM EST Gender Identity Not on file Sexual Orientation Not on file Last Filed Vital Signs Vital Sign Reading Time Taken Comments Blood Pressure 130/60 03/01/2024 1:33 PM EST Pulse 74 10/23/2023 2:44 PM EDT Temperature - - Respiratory Rate - - Oxygen Saturation 98% 10/23/2023 2:44 PM EDT Inhaled Oxygen Concentration - - Weight 102 kg (224 lb) 03/01/2024 1:33 PM EST Height 180.3 cm (5' 11 ) 06/30/2019 12:00 PM EDT Body Mass Index 31.24 06/30/2019 12:00 PM EDT Plan of Treatment Upcoming Encounters Date Type Department Care Team (Late st Contact Info) Description 09/20/2024 2:45 PM EDT Office Visit [facility] [address] [place] [phone] Mustapha Lerma MD [address] [facility] [address] [place] [address] Health Maintenance Due Date Last Done Comments Pneumococcal Vaccine: 50+ Ye ars (2 of 2 - PPSV23, PCV20, or PCV21) 06/04/2016 04/09/2016 Diabetes: Hemoglobin A1C 07/18/2021 Diabetes: Ophthalmology Exam 07/18/2021 Diabetes: Pedal Pulse Checked 07/18/2021 Diabetes: Sensory Foot Exam 07/18/2021 Diabetes: Visual Foot Exam 07/18/2021 Influenza Vaccine (Season Ended) 2024 12/06/19 20 Pneumococcal Vaccine: Peds ( 0 to 5 Years) and At-Risk Patients (6 to 49 Years) Discontinued 04/09/2016 Hepatitis B Vaccine Aged Out No longe r eligible based on patient's age to complete this topic Insurance [facility] Medicare [facility] Member Subscriber Plan / Payer (Ef fective 2019-Present) Name:Jaykatherine Jose Angel Relation to Subscriber:Self Name:Jaykatherine Jose Angel Payer ID:Not on file Type:Not on file Address: [address] [phone] Medicare Care Teams Sort Supervisor Relationship Specialty Start Date End Date Chauncey Salmeron MD [facility] [address] [place] [address] [address] [place], [place] PCP - General 03/27/20
== END 2024-09-08 13:32 | disposition home or self-care (01) ==
PROVIDERS: Registered Nurse Emergency; Emergency Provider Emergency Medicine; PCP Internal Medicine
DX: L03.115 Cellulitis of right lower limb (principal); M79.604 Pain in right leg; Z79.899 Other long term (current) drug therapy
CPT/HCPCS: 36415; 80053; 83605; 85025; 85652; 86140; 87040; 87070; 87077; 87186; 87205; 99282; 99283

== ENCOUNTER 2024-10-27 17:11 | Emergency (ER) | payer MEDICARE, OTHER, SELFPAY ==
--- NOTE | ~2024-10-27 | US_ITS ---
CLINICAL HISTORY: pain and swelling Right lower extremity venous ultrasound. Findings: The deep venous system is normally compressible. There is color Doppler flow with augmentation. Impression: No DVT is identified. This document has been electronically signed by: Azar Miguel MD on 10/27/2024 18:40:50
--- NOTE | 2024-10-27 17:31 | ED.GENADULT ---
HPI - General Adult General Chief complaint: Extremity Injury, Lower Stated complaint: ? blood clot in rt leg, pain/swelling Time Seen by Provider: 10/27/24 19:52 Related Data Home Medications ?Medication ?Instructions ?Recorded ?Confirmed allopurinol 100 mg tablet 100 mg PO DAILY 11/27/20 11/27/20 amlodipine 5 mg tablet 5 mg PO DAILY 11/27/20 11/27/20 atorvastatin 40 mg tablet 40 mg PO BEDTIME 11/27/20 11/27/20 cilostazol 50 mg tablet 50 mg PO BID 11/27/20 11/27/20 clopidogrel 75 mg tablet 75 mg PO DAILY 11/27/20 11/27/20 doxazosin 4 mg tablet 4 mg PO BEDTIME 11/27/20 11/27/20 furosemide 20 mg tablet 40 mg PO DAILY 11/27/20 11/27/20 glipizide 5 mg tablet 5 mg PO DAILY 11/27/20 11/27/20 isosorbide mononitrate 30 mg 30 mg PO DAILY 11/27/20 11/27/20 tablet,extended release 24 hr pantoprazole 40 mg tablet,delayed 40 mg PO DAILY 11/27/20 11/27/20 release Previous Rx's ?Medication ?Instructions ?Recorded oxycodone 5 mg tablet 5 mg PO Q8H PRN pain #7 tabs 03/08/21 bacitracin 500 unit/gram topical 1 appl topical BID #30 grams 10/16/21 ointment cephalexin 500 mg capsule 500 mg PO QID 7 days #28 caps 10/16/21 amoxicillin 875 mg-potassium 1 tab PO BID 7 days #14 tabs 04/07/22 clavulanate 125 mg tablet cephalexin 500 mg capsule 500 mg PO Q8H #21 caps 09/05/24 doxycycline hyclate 100 mg capsule 100 mg PO BID #14 caps 09/05/24 mupirocin 2 % topical ointment 1 appl topical BID #22 grams 09/08/24 (Centany) cephalexin 500 mg capsule 500 mg PO QID 10 days #40 caps 10/27/24 doxycycline hyclate 100 mg tablet 100 mg PO BID #20 tabs 10/27/24 Allergies Allergy/AdvReac Type Severity Reaction Status Date / Time sulfamethoxazole (From Allergy Affected Verified 10/27/24 17:36 Bactrim) Kidneys trimethoprim (From Bactrim) Allergy Affected Verified 10/27/24 17:36 Kidneys PMFSH Past Medical History Medical History AV block, 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 CKD (chronic kidney disease), stage III Peripheral arterial occlusive disease Arthritis GERD (gastroesophageal reflux disease) BPH (benign prostatic hyperplasia) Gout Diabetes CHF (congestive heart failure) HTN (hypertension) Elevated cholesterol CAD (coronary artery disease) Surgical History Hx of CABG Hx of angioplasty History of bilateral total hip arthroplasty History of carotid endarterectomy Hx of coronary angioplasty Social History Social History Are you a primary child day care center worker to a significant other at home: No Do you presently have visiting nurse or other home services: No Patient Tobacco Use Status: Never used Tobacco Smoked in Last 30 Days: No Use of substances other than those prescribed or required for medical reasons: No Advance Directives: No Advance Directives Information Provided: Yes Do you have a plan to hurt others: No Plan Physical Exam ED Vital Signs: Vital Signs - 24 hr 10/27/24 19:21 10/27/24 21:35 10/27/24 21:36 Temperature 97.9 F 98 F 98 F Pulse Rate 60 68 68 Respiratory Rate 17 17 17 Blood Pressure 156/46 H 168/86 H 168/86 H Pulse Oximetry 97 97 97 Oxygen Delivery Method Room Air Room Air Room Air BMI result Body Mass Index 29.4 Course Course Course Narrative: This is a rapid medical exam performed by Dorothea Villegas NP: Additional HPI, ROS, PE not included below will be deferred to primary provider. Patient is a 78-year-old male with history of renal insufficiency, chronic afib not anticoagulated, has Watchman device presenting to the ED with complaint of right lower leg pain and swelling, worst to calf. Takes daily ASA. Plan: labs, U/S Medications Administered Discontinued Medications Generic Name Dose Route Start Last Admin Trade Name Freq PRN Reason Stop Dose Admin Doxycycline Monohydrate 100 mg 10/27/24 20:04 10/27/24 20:49 Doxycycline Monohydrate 100 Mg Capsule PO 10/27/24 20:05 100 mg ONCE ONE Administration Sodium Chloride 1,000 mls @ 999 mls/hr 10/27/24 20:10 10/27/24 21:26 Ns IV 10/27/24 21:10 Infused .Q1H1M ONE Infusion Cefazolin Sodium/Dextrose 2 gm in 50 mls @ 100 mls/hr 10/27/24 20:15 10/27/24 21:19 Ancef IV 10/27/24 20:44 Infused ONCE ONE Infusion Medical Decision Making Lab Data 10/27/24 18:09 10/27/24 18:09 Labs: Lab Results 10/27/24 10/27/24 Range/Units 18:09 20:21 WBC 11.1 H (4.8-10.8) X10*3/uL RBC 5.60 (4.60-5.80) X10*6/uL Hgb 11.6 L (14.0-18.0) g/dl Hct 36.7 L (42.0-52.0) % MCV 65.5 L (80.0-98.0) fL MCH 20.7 L (27.0-33.0) pg MCHC 31.6 (31.0-36.0) g/dl RDW 19.1 H (11.0-16.0) % Plt Count 102 L D (160-400) X10*3/uL MPV Not Reportable Immature Gran % (Auto) 0.4 (0.0-0.4) % Neut % (Auto) 86.9 H (45-73) % Lymph % (Auto) 4.1 L (20-40) % Elk % (Auto) 7.6 (2-11) % Eos % (Auto) 0.8 (0-4) % Baso % (Auto) 0.2 (0-2) % Lymph # (Auto) 0.5 L (1.2-4.9) X10*3/uL Elk # (Auto) 0.9 (0.1-1.2) X10*3/uL Eos # (Auto) 0.1 (0.0-0.4) X10*3/uL Baso # (Auto) 0.0 (0.0-0.2) X10*3/uL Abs Immat Gran (auto) 0.04 H (0.00-0.03) X10*3/uL Absolute Neuts (auto) 9.7 H (2.0-8.3) x10*3/uL Absolute Nucleated RBC 0.000 (0.0-0.012) X10*3/uL Nucleated RBC % (auto) 0.0 (0.0-0.2) /100WBC Smear Tech's Comments VERIFIED PT 11.6 (10.9-12.4) SEC INR 1.0 D (0.9-1.1) Sodium 141 (135-145) mmol/L Potassium 4.6 (3.3-5.1) mmol/L Chloride 105 (96-108) mmol/L Carbon Dioxide 25 (22-29) mmol/L Anion Gap 16 (12-20) BUN 95 H (9-16) mg/dL Creatinine 3.74 H (0.5-1.4) mg/dL Estim Creat Clear Calc 19.5 Estimated GFR 16 Random Glucose 81 (60-115) mg/dL Lactic Acid 0.8 (0.5-2.0) mmol/L Calcium 9.2 (8.4-10.2) mg/dL Total Bilirubin 0.7 (0.0-1.0) mg/dL AST 28 (5-37) U/L ALT 24 (0-40) U/L Alkaline Phosphatase 64 (39-117) U/L Total Protein 7.1 (6.5-8.0) g/dL Albumin 4.5 (3.5-5.0) g/dL Discharge Plan Discharge Clinical Impression: Cellulitis Patient Disposition: Home, Self-Care Instructions: Cellulitis (ED) Additional Instructions: Local care of the superficial wound of the right leg as advised Take oral antibiotic as prescribed Report to the ER if worsening of the redness/fever or pain in the right leg Prescriptions: New cephalexin 500 mg capsule 500 mg PO QID 10 Days Qty: 40 0RF doxycycline hyclate 100 mg tablet 100 mg PO BID Qty: 20 0RF No Action atorvastatin 40 mg Tablet 40 mg PO BEDTIME cilostazol 50 mg Tablet 50 mg PO BID isosorbide mononitrate 30 mg Tablet Extended Release 24 Hr 30 mg PO DAILY clopidogrel 75 mg Tablet 75 mg PO DAILY amlodipine 5 mg Tablet 5 mg PO DAILY allopurinol 100 mg Tablet 100 mg PO DAILY pantoprazole 40 mg Tablet,Delayed Release (Dr/Ec) 40 mg PO DAILY doxazosin 4 mg Tablet 4 mg PO BEDTIME furosemide 20 mg Tablet 40 mg PO DAILY glipizide 5 mg Tablet 5 mg PO DAILY oxycodone 5 mg tablet 5 mg PO Q8H PRN (Reason: pain) Qty: 7 0RF Rx Instructions: Hip pain bacitracin 500 unit/gram ointment 1 appl topical BID Qty: 30 0RF cephalexin 500 mg capsule 500 mg PO QID 7 Days Qty: 28 0RF amoxicillin-pot clavulanate 875-125 mg tablet 1 tab PO BID 7 Days Qty: 14 0RF mupirocin [Centany] 2 % ointment 1 appl topical BID Qty: 22 0RF doxycycline hyclate 100 mg capsule 100 mg PO BID Qty: 14 0RF cephalexin 500 mg capsule 500 mg PO Q8H Qty: 21 0RF Interventions: ED Discharge Assessment Last Done: 10/27/24 21:36 Discharge Date/Time: 10/27/24 21:40 Print Language: Barbadian
[2024-10-27 17:33] VITALS: BP 142/63; PULSE 65; RESP 12; TEMP 36.6; O2SAT 95; BMI 29.4
[2024-10-27 18:23] LABS: Imm Gran Pct Auto 0.4 % (0.0-0.4); MANUAL DIFF FLAG SCAN; Mean Corpuscular Hemoglobin 20.7 pg (27.0-33.0); NRBC Abs Auto 0.000 X10*3/uL (0.0-0.012); NRBC Pct Auto 0.0 /100WBC (0.0-0.2); SCAN SMEAR FLAG 1
[2024-10-27 18:25] LABS: Hematocrit 36.7 % (42.0-52.0); Hemoglobin 11.6 g/dl (14.0-18.0); Imm Gran Abs Auto 0.04 X10*3/uL (0.00-0.03); Lymphocytes Absolute Auto 0.5 X10*3/uL (1.2-4.9); Mean Corpuscular HGB Conc 31.6 g/dl (31.0-36.0); Mean Corpuscular Volume 65.5 fL (80.0-98.0); Red Blood Count 5.60 X10*6/uL (4.60-5.80); White Blood Count 11.1 X10*3/uL (4.8-10.8)
[2024-10-27 18:28] LABS: PLT ABN DIST 1
[2024-10-27 18:31] LABS: INTERNATIONAL NORM RATIO 1.0 (0.9-1.1); Prothrombin Time 11.6 SEC (10.9-12.4)
[2024-10-27 18:38] LABS: Alanine Aminotransferase 24 U/L (0-40); Albumin Level 4.5 g/dL (3.5-5.0); Alkaline Phosphatase 64 U/L (39-117); Anion Gap 16 (12-20); Aspartate Amino Transferase 28 U/L (5-37); Blood Urea Nitrogen 95 mg/dL (9-16); Calcium 9.2 mg/dL (8.4-10.2); Carbon Dioxide 25 mmol/L (22-29); Chloride 105 mmol/L (96-108); Creatinine Clr Calc Pharmacy 19.5; Estimated Glomerular Filt Rate 16; Potassium 4.6 mmol/L (3.3-5.1); Sodium 141 mmol/L (135-145); Total Protein 7.1 g/dL (6.5-8.0)
[2024-10-27 18:49] LABS: Platelet Count 102 X10*3/uL (160-400)
[2024-10-27 19:21] VITALS: BP 156/46; PULSE 60; RESP 17; TEMP 36.6; O2SAT 97
--- NOTE | 2024-10-27 19:22 | PC.NURSE ---
a&ox4. vss and up to date. nsr - paced on the surveillance system monitor. pt presents to the ED c/o worsening pain to right calf x 3 days. pt reports, my sent me in. pt denies any recent travel/sob/injury/trauma. right calf noted to be red/hot to the touch. denies any recent fevers. afebrile in the ED. pt reports blisters to LE bilaterally which has been a normal occurrence for him. +ASA daily. pt otherwise on RA - no sob/wob noted. respirations even/unlabored. plan of care ongoing. call hdez placed within reach.
--- OUTSIDE RECORDS SUMMARY | 2024-10-27 19:52 | XMS_ITS | Clinical Summary ---
Author Organization [address] [place] [address] [place] [phone] Phone Care Team Providers Care Activities Volunteer Name Role Phone Chauncey Salmeron MD Primary Care Provider [phone] Allergies Active Allergy Reactions Criticality Noted Date Comments Cefazolin 03/25/2022 Lisinopril 09/17/2023 Sulfamethoxazole-Trimethopr im High 10/17/2021 Kidney related issues Per patient, affected his kidneys Medications atorvastatin (LIPITOR) 80 mg tablet TAKE 1 TABLET BY MOUTH EVERY DAY. 07/14/2023 Active furosemide (LASIX) 80 mg tablet Take 0.5 tablets (40 mg total) by mouth 2 (two) times a day. 07/18/2023 Active hydrALAZINE (APRESOLINE) 100 mg tablet Take 1 tablet (100 mg total) by mouth 2 (two) times a day. Active acetaminophen (TYLENOL) 325 mg tablet Take 2 tablets (650 mg total) by mouth every 8 (eight) hours if needed. Active ascorbic acid, vitamin C, 500 mg capsule Take 1 capsule by mouth 1 (one) time each day. Active multivitamin (MULTIPLE VITAMINS ORAL) Take 1 Tablet by mouth daily. Active allopurinoL (ZYLOPRIM) 100 mg tablet Take 2 tablets (200 mg total) by mouth 1 (one) time each day. Active glipiZIDE (GLUCOTROL) 5 mg tablet Take 1 tablet (5 mg total) by mouth 1 (one) time each day. Active aspirin 81 mg EC tablet Take 1 tablet (81 mg total) by mouth 1 (one) time each day. Active levocetirizine (XYZAL) 5 mg tablet Take 1 tablet (5 mg total) by mouth 1 (one) time each day in the evening. Active doxazosin XL (CARDURA XL) 4 mg 24 hr tablet Take 1 tablet (4 mg total) by mouth 1 (one) time each day with breakfast. Do not crush, chew, or split. Active Active Problems Problem Noted Date Diagnosed Date Pulmonary hypertension (CMS/HCC V24, CMS/HCC V28 ) 07/12/2024 Assessment & Plan (08/16/2024 11:31 AM EDT): Combined pulmonary hypertension and unable to tolerate higher levels of furosemide. Will refer to [facility] Pulmonary Hypertension clinic. Assessment & Plan (07/12/2024 12:42 PM EDT): The patient underwent an echocardiogram in April 2024 that showed evidence of severe pulmonary hypertension. His pulmonary hypertension may be secondary to his underlying HFpEF and longstanding persistent A-fib. Given evidence of severe pulmonary hypertension on the echocardiogram, we will proceed with further testing with a right heart catheterization for better characterization of the patient's pulmonary hypertension. Depending on the results of the right heart catheterization, then we will consider a referral for an evaluation with the pulmonology service if there is any significant pulmonary component to his pulmonary hypertension. S/P TAVR (transcatheter aortic valve replacement ) 04/07/2024 Assessment & Plan (08/16/2024 11:31 AM EDT): Functioning well on exam and recent echocardiogram. No related symptoms. Assessment & Plan (07/12/2024 12:42 PM EDT): The patient has a bioprosthetic aortic valve in place place via a TAVR approach by Dr. Sales. Recent transthoracic echocardiogram from April 2024 showed a normal functioning bioprosthetic aortic valve without significant bioprosthetic valve stenosis and with only trace bioprosthetic aortic valve insufficiency. Will continue periodic echocardiographic monitoring. Assessment & Plan (04/07/2024 4:26 PM EST): The patient has a history of aortic stenosis status post TAVR. Recent LON as outlined above showed aortic valve well-seated and functioning normally. Will update a new echocardiogram to reevaluate given his symptoms today. (HFpEF) heart failure with p reserved ejection fraction ([facility] V24, CMS/[facility] V28) 03/25/2022 Assessment & Plan (08/16/2024 11:31 AM EDT): Echocardiogram from 2024 showed low normal LV systolic function. Aside from trace lower extremity edema, he appears compensated on exam. Still short of breath, but stable. Continue with furosemide. RHC shows combined pulmonary hypertension. Will refer to PHTN specialist. Unable to increase diuretics at this time. We reviewed heart failure management including low-sodium diet, symptom surveillance, daily weights and medication compliance. The patient is aware they may take extra diuretic for intermittent evidence of mild congestive signs and symptoms. If the increase of frequency of as needed diuretic becomes more regular than they will make our office aware. If the patient has weight gain over 3lbs in one day or 5lbs over several days, they are aware to contact our office. With any severe or sustained symptoms, they are aware to contact EMS via 911 and go to the emergency room. Assessment & Plan (07/12/2024 12:42 PM EDT): The patient has a history of HFpEF. He also has a history of CKD. He is currently on Lasix 40 mg orally twice a day. He is not on an SGLT2 inhibitor due to his advanced CKD. The patient is followed by nephrology service. Lower extremity edema has remained stable on current dose of furosemide. Of note, the patient had an increase in the creatinine with a higher dose of furosemide. Amyloidosis workup was negative. At this point, we will continue with his current dose of furosemide. Will also order a right heart catheterization for better characterization of the patient's pulmonary hypertension. Assessment & Plan (04/07/2024 4:26 PM EST): The patient has a history of heart failure with preserved ejection fraction. He also has a history of evidence of moderate LVH on echocardiogram with subsequent normal PYP scan. Initially, the patient had been on furosemide 80 mg orally twice daily and given his history of CKD stage IV, he was recommended to reduce his furosemide to 40 mg orally twice daily about 3 months ago by his sand tester. The patient had been doing well up until about 3 weeks ago he noticed heart failure symptoms including weight gain, cough, and dyspnea on exertion. At this point, recommend he increase his diuretic to 80 mg in the morning and 40 mg in the p.m. and repeat BMP next week. Will also have him undergo repeat echocardiogram to reevaluate his LV function and assess for any changes. We also discussed given his cough and reports of phlegm, we will have him undergo chest x-ray to rule out any acute abnormality or infection. He will continue to monitor his symptoms and if he experiences worsening symptoms or shortness of breath at rest, he will not hesitate to go to the hospital. I will notify him of the results as soon as they become available. He prefers to notify me of how he is feeling after the increase in diuretic instead of following up in the office. 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 Status post pacemaker due to sss. Persistent atrial fibrillation. Assessment & Plan (07/12/2024 12:42 PM EDT): The patient has a history of longstanding persistent atrial fibrillation. He is not on anticoagulation therapy given that he underwent a Watchman device placement in September 2023. The patient is on aspirin 81 mg orally daily. Assessment & Plan (04/07/2024 4:26 PM EST): Patient has a history of longstanding persistent atrial fibrillation as well as a history of sick sinus syndrome status post pacemaker placement in the past. He is status post Watchman device placement in September 2023 and continues on aspirin. His heart rate is well-controlled today. Will continue to monitor on device checks as well. Orders: ECG 12 lead CAD (coronary artery disease) 09/16/2019 Assessment & Plan (08/16/2024 11:31 AM EDT): Catheterization from 2024 showed stable disease and patent grafts. Echocardiogram from 2024 showed low normal LV systolic function. No anginal symptoms. Continue with aspirin, atorvastatin, furosemide, and hydralazine. We discussed risk reduction through lifestyle choices including healthy diet, routine exercise and weight management. Assessment & Plan (07/12/2024 12:42 PM EDT): The patient has a history of CAD status post CABG x 5 in the year 2016. Left heart cath in March 2022 showed a 70% stenosis in the distal LAD (after the MENDEZ touchdown), patent SVG to OM1, patent SVG to distal RCA. SVG graft in the PDA has 60 to 70% stenosis in the mid body. The SVG graft to D1 is occluded. Given that the patient was asymptomatic from an anginal standpoint at that time, the patient was recommended to continue medical management. On today's visit, the patient denies any anginal symptoms. He states that he is no longer taking the amlodipine or the isosorbide mononitrate and he denies any symptoms of angina. He is on aspirin and atorvastatin. At this point, we will continue his current medication regimen. Assessment & Plan (04/07/2024 4:26 PM EST): Patient has a history of coronary artery disease status post CABG x 5 in 2016. Currently, he denies any episodes of chest pain at rest or with exertion. He continues on medical therapy with amlodipine, aspirin, statin and isosorbide mononitrate. Patient advised to seek emergency medical attention by calling 911 if they were to develop severe dyspnea, chest pain that did not resolve with rest or nitroglycerin, or if they were to faint. Chronic kidney disease (CKD) , stage III (moderate) (CMS/[facility] V24, [facility] V28) 09/16/2019 Hyperlipidemia 09/16/2019 Assessment & Plan (08/16/2024 11:31 AM EDT): Continue with atorvastatin. Assessment & Plan (07/12/2024 12:42 PM EDT): The patient has a history of hyperlipidemia. He is currently on atorvastatin 80 mg daily. Will continue his current therapy. Hypertension 09/16/2019 Assessment & Plan (08/16/2024 11:31 AM EDT): Controlled. Continue with furosemide and hydralazine. Assessment & Plan (07/12/2024 12:42 PM EDT): The patient has a history of hypertension. She is currently only on hydralazine 100 mg orally twice a day. The patient states that he is no longer taking the amlodipine. Blood pressure today in our office is stable. Will continue his current dose of hydralazine. Assessment & Plan (04/07/2024 4:26 PM EST): Patient's blood pressure today is mildly elevated. Will increase his diuretic therapy and he will continue to monitor his blood pressures at home which have been well-controlled. Type 2 diabetes mellitus ([facility] V24, [facility] V 28) 09/16/2019 Bilateral carotid artery stenosis 05/11/2018 PAD (peripheral artery disease) ([facility] V24) Assessment & Plan (08/16/2024 11:31 AM EDT): No current manifestations. Followed by vascular surgery. Continue with aspirin, atorvastatin, hydralazine and furosemide. Resolved Problems Problem Noted Date Diagnosed Date Resolved Date SOB (shortness of breath) 04/06/2024 Bradycardia 03/06/2022 04/07/2024 Overview (12/17/2023): Last Assessment & Plan: The patient has a history of atrial fibrillation with slow ventricular response and resting bradycardia. He underwent 24-hour Holter monitor February 2022 which showed atrial fibrillation with an average heart rate of 39 bpm. The patient was evaluated by electrophysiology at that time and it was recommended to continue current therapy without intervention. Most recently, the patient was seen at [facility] where he was reevaluated by electrophysiology given his significant bradycardia and atrial fibrillation with slow ventricular response and ultimately, the patient underwent pacemaker placement to help improve cardiac output and potentially help reduce symptom burden and heart failure exacerbation. On today's visit, the patient reports improvement in his symptoms and denies any cardiac concerns. Aortic stenosis 01/22/2022 04/07/2024 Overview (12/17/2023): Last Assessment & Plan: Patient with history [...] office will be in contact with him. Encounters Date Type Department Care Team Description 10/06/2024 Telephone [facility] Structural Heart [address] [place] [address] Pily Mccall RN 1 year s/p Watchman follow up call 09/28/2024 Telephone [facility] Cardiology [facility] [address] [place] [address] Chauncey Salmeron MD Medical Records 09/27/2024 10:45 AM EDT Ancillary Procedure [facility] Cardiology [facility] [address] [place] [address] Bilateral carotid artery stenosis; History of right-sided carotid endarterectomy 09/20/2024 [address] [facility] [address] [facility] [address] [place] [address] Michael Swan NP Referral 08/26/2024 Telephone [facility] Cardiology [facility] [address] [place] [address] Michael Swan NP referral 08/16/2024 9:40 AM EDT Office Visit [facility] [address] [place] [address] Michael Swan NP Chronic heart failure with preserved ejection fraction (CMS/HCC V24, CMS/HCC V28) (Primary Dx); Longstanding persistent atrial fibrillation (CMS/HCC V24, CMS/HCC V28); Coronary artery disease involving chinik coronary artery of chinik heart without angina pectoris; Primary hypertension; S/P TAVR (transcatheter aortic valve replacement); Pure hypercholesterolemia; PAD (peripheral artery disease) (CMS/HCC V24); Pulmonary hypertension (CMS/HCC V24, CMS/HCC V28) 07/27/2024 1:30 PM EDT Ancillary Procedure [facility] [address] [place] [phone] from Last 3 Months Immunizations Name Administration Dates Next Due ed[employer]ULSE[employer] SARS-CoV-2 COVID -19, vector-nr, [id number], preservative free 02/14/2021,06/21/2020,03/17/2020 Moderna SARS-CoV-2 COVID-19, mRNA, LNP-S, preservative free 07/30/2021,01/13/2021 Surgical History Surgery Date Site/Laterality Comments CARDIAC CATHETERIZATION PROCEDURE: HISTORICAL CARDIAC CATH; COMMENT: 03/06/16, 04/07/15 OTHER SURGICAL HISTORY 03/2015 Right PROCEDURE: HISTORY OTHER; COMMENT: Carotid endardectomy and patch OTHER SURGICAL HISTORY Left PROCEDURE: HISTORY OTHER; COMMENT: Irrigation and Debridement of hip OTHER SURGICAL HISTORY PROCEDURE: HISTORY OTHER; COMMENT: ORIF femur fx TOTAL KNEE ARTHROPLASTY 07/21/2008 PROCEDURE: HISTORICAL TOTAL KNEE REPLACE HIP ARTHROPLASTY 08/28/2007 Right PROCEDURE: HISTORICAL HIP REPLACEMENT; COMMENT: total hip arthrosplasty CARDIAC CATHETERIZATION 10/10/2005 PROCEDURE: HISTORICAL CARDIAC CATH TONSILLECTOMY PROCEDURE: HISTORICAL TONSILLECTOMY CARDIAC CATHETERIZATION DONE AT [facility] w/[facility] ON 07/23/24. INDICATIONS:Congestive Heart Failure Medical History Medical History Date Comments Rib fractures DX:Rib fractures CRF (chronic renal failure) 03/25/2022 DX:C RF (chronic renal failure) Diabetes mellitus type 2, no ninsulin dependent ([facility] V24, [facility] V28) DX:Diabetes melli tus type 2, noninsulin dependent ([facility]) Difficult airway for intubation DX:Difficult airway for intubation; COMMENT: Grade III view Gout DX:Gout HERNANDEZ on CPAP 03/25/2022 DX:HERNANDEZ on CPAP Prosthetic joint infection ( [facility] V24) DX:Prosthetic joint infectio n ([facility]) Right-sided extracranial car otid artery stenosis DX:Right-sided extracranial carotid artery stenosis Family History Relation Name Status Comments Father Mother Social History Tobacco Use Types Packs/Day Years Used Date Smoking Tobacco: Never Smokeless Tobacco: Never Alcohol Use Standard Drinks/Week Comments Yes 0 (1 standard drink = 0.6 oz pur e alcohol) once a week Sex and Gender Information Value Date Recorded Sex Assigned at Not on file Legal Sex Male 9:58 PM EST Gender Identity Not on file Sexual Orientation Not on file Obstetrics History Last Filed Vital Signs Vital Sign Reading Time Taken Comments Blood Pressure 122/58 08/16/2024 9:38 AM EDT Pulse 60 08/16/2024 9:38 AM EDT Temperature - - Respiratory Rate - - Oxygen Saturation 95% 08/16/2024 9:38 AM EDT Inhaled Oxygen Concentration - - Weight 102 kg (224 lb 1.6 oz) 08/16/2024 9:38 AM EDT Height 180.3 cm (5' 11 ) 08/16/2024 9:38 AM EDT Body Mass Index 31.26 08/16/2024 9:38 AM EDT Plan of Treatment Upcoming Encounters Date Type Department Care Team (Late st Contact Info) Description 11/12/2024 10:30 AM EDT Office Visit [facility] [place] [address] [place] [phone] Ron Maloney MD [address] [place] [address] 05/12/2025 10:00 AM EST Ancillary Procedure [facility] [address] [place] [address] Health Maintenance Due Date Last Done Comments Diabetes: Annual Foot Exam 1955 Diabetes: Annual Retina Eye Exam 1955 DTaP,Tdap,and Td Vaccines (1 - Tdap) 1964 Pneumococcal Vaccine: 50+ Years (2 of 2 - PPSV23) 06/04/2016 04/09/2016 Cholesterol Screening (Lipid Panel) 02/23/2022 Falls Risk Assessment 02/23/2022 Hepatitis C Screening 02/23/2022 Medicare Annual Wellness Visit 02/23/2022 Social Influencers of Health Screening 02/23/2022 Diabetes: Blood Sugar Control Test (HGBA1C) 03/01/2022 Depression Screening 03/17/2024 COVID-19 Vaccine ( season) 2024 12/08/2023, 12/30/2022, 07/30/2021, Additional history exists Influenza Vaccine (#1) 2024 , 12/10/2022, 01/16/2022, Additional history exists Diabetes: Annual GFR (Glomerular Filtration Rate) 04/23/2025 04/23/2024, 04/15/2024, 09/17/2023, Additional history exists Hypertension/CHF/CAD Annual BMP Blood Test 04/23/2025 04/23/2024, 04/15/2024, 09/17/2023, Additional history exists Diabetes: Annual Urine Albumin-Creatinine Ratio (uACR) 09/13/2025 09/13/2024, 02/26/2024 RSV Immunization Adult Patients Completed 12/10/2022 Zoster Vaccines Completed 12/30/2022, 10/15, 03/17/2019, Additional history exists HIB Vaccines Aged Out No longer eligi ble based on patient's age to complete this topic HPV Vaccines Aged Out No longer eligi ble based on patient's age to complete this topic Hepatitis A Vaccines Aged Out No long er eligible based on patient's age to complete this topic Hepatitis B Vaccines Aged Out No long er eligible based on patient's age to complete this topic IPV Vaccines Aged Out No longer eligi ble based on patient's age to complete this topic MMR Vaccines Aged Out No longer eligi ble based on patient's age to complete this topic Meningococcal ACWY Vaccine Aged Out N o longer eligible based on patient's age to complete this topic Meningococcal B Vaccine Aged Out No l onger eligible based on patient's age to complete this topic RSV Immunization Patients Under 20 months Aged Out No longer eligible based on patient's age to complete this topic Varicella Vaccines Aged Out No longer eligible based on patient's age to complete this topic Medical Devices Implanted Type Area Quality Eng Device Identifier Shelf Expiration Date Model / Serial / Lot Abbfundfindr-[employer] 1272 Assurity Mri(Tm) [id number] Implanted:07/2023 by Sid Toney MD (Quantity not on file) Cardiac Pacemaker Left: Chest NASSAR [employer]- [employer] 1272 ASSURITY MRI(TM) / [id number] / Abbt-Stju Assurity Mri [id number] Implanted:07/2023 (Quantity not on file) Cardiac Pacemaker ihiji- [employer] MRI 1272 / [id number] / Device Clsur Watchman Flx Pro Shannan 31mm Bsci-Prnt [id number] - [id number] Implanted:Qty : 1 on 09/25/2023 by Sid Toney MD Left: Heart Fyusion [id number] / [id number] / Description:Left atrial appe ndage closure device Procedures Procedure Name Priority Date/Time Associated Diagnosis Comments VAS US DUPLEX CAROTID BILATERAL Routine 09/27/2024 11:04 AM EDT Bilateral carotid artery stenosis History of right-sided carotid endarterectomy CARDIAC DEVICE CHECK- REMOTE- MURJ Routine 07/27/2024 1:28 PM EDT BASIC METABOLIC PANEL Routine 04/23/2024 10:47 AM EST from Last 3 Months or Most Recently Relevant to Health Maintenance Results * Vascular US duplex carotid bilateral (09/27/2024 11:04 AM EDT) Left CCA dist machado 13 cm/s CV VAS LAB Left CCA dist sys 108 cm/s CV VAS LAB LEFT COMMON CAROTID ARTERY MID D 12 cm/s CV VAS LAB LEFT COMMON CAROTID ARTERY MID S 90 cm/s CV VAS LAB Left CCA prox machado 12 cm/s CV VAS LAB Left CCA prox sys 91 cm/s CV VAS LAB LEFT EXTERNAL CAROTID ARTERY D 27 cm/s CV VAS LAB Left ECA sys 192 cm/s CV VAS LAB Left ICA/CCA sys 3.20 no units CV VAS LAB Left ICA dist machado 21 cm/s CV VAS LAB Left ICA dist sys 116 cm/s CV VAS LAB Left ICA mid machado 22 cm/s CV VAS LAB Left ICA mid sys 163 cm/s CV VAS LAB Left ICA prox machado 45 cm/s CV VAS LAB Left ICA prox sys 343 cm/s CV VAS LAB Left vertebral sys 57 cm/s CV VAS LAB Right CCA dist machado 10 cm/s CV VAS LAB Right cca dist sys 72 cm/s CV VAS LAB RIGHT COMMON CAROTID ARTERY MID D 9 cm/s CV VAS LAB RIGHT COMMON CAROTID ARTERY MID S 63 cm/s CV VAS LAB Right CCA prox machado 8 cm/s CV VAS LAB Right CCA prox sys 57 cm/s CV VAS LAB RIGHT EXTERNAL CAROTID ARTERY D 21 cm/s CV VAS LAB Right eca sys 468 cm/s CV VAS LAB Right ICA/CCA sys 3.50 no units CV VAS LAB Right ICA dist machado 21 cm/s CV VAS LAB Right ICA dist sys 85 cm/s CV VAS LAB Right ICA mid machado 31 cm/s CV VAS LAB Right ICA mid sys 137 cm/s CV VAS LAB Right ICA prox machado 41 cm/s CV VAS LAB Right ICA prox sys 268 cm/s CV VAS LAB Right vertebral sys 63 cm/s CV VAS LAB Left Prox Subclavian PSV 189 cm/s CV VAS LAB Right Prox Subclavian PSV 298 cm/s CV VAS LAB Right Bulb PSV 125 cm/s CV VAS LAB Right Bulb EDV 16 cm/s CV VAS LAB Right arm BP 128 mmHg CV VAS LAB Left arm BP 135 mmHg CV VAS LAB Left Bulb PSV 284 cm/s CV VAS LAB Left Bulb EDV 43 cm/s CV VAS LAB Anatomical Region Laterality Modality Vascular, Abdomen Ultrasound Narrative 09/28/2024 3:55 PM EDT Right ICA: There is mild heterogeneous plaque. Left ICA: There is moderate heterogeneous plaque. RIGHT. 1. There is atherosclerotic plaque in the carotid system as noted above. 2. There is greater than 70% stenosis in the internal carotid artery based on Doppler velocity. 3. The subclavian artery has turbulent Doppler flow pattern which may indicate proximal stenosis. 4. Vertebral artery has normal antegrade flow. LEFT. 1. There is atherosclerotic plaque in the carotid system as noted above. 2. There is greater than 70% stenosis in the internal carotid artery based on Doppler velocity. 3. The subclavian artery has normal Doppler flow pattern. 4. Vertebral artery has normal antegrade flow. Right Carotid The CCA has mild heterogeneous plaque and intimal thickening. The bifurcation has mild heterogeneous plaque. The ICA has mild heterogeneous plaque. The ECA has turbulent flow. The ECA has moderate heterogeneous plaque. The subclavian artery has turbulent flow. The subclavian artery waveforms are biphasic. Vertebral flow is antegrade. Left Carotid There is evidence of intimal thickening in the CCA. The bifurcation has severe heterogeneous plaque. The ICA has moderate heterogeneous plaque. The ECA has mild heterogeneous plaque. The subclavian artery waveforms are biphasic. Vertebral flow is antegrade. Camera Prototyping Engineer Details A patel scale, color and doppler analysis ultrasound was performed. During the study longitudinal and transverse views were obtained. Continuous wave doppler and pulsed wave doppler was performed. Overall the study quality was poorly visualized. Study was technically difficult due to: acoustic shadowing. Ashely LÓPEZ CV VASCULAR PROCEDURES Final Result * Cardiac device check - Remote- MURJ (07/27/2024 1:28 PM EDT) Pathologist [facility] Date Time Interrogation Session [id number] CV DEVICE CHECK Type Interrogation Session Remote Scheduled CV DEVICE CHECK Implantable Pulse Generator Quality Eng [facility] CV DEVICE CHECK Implantable Pulse Generator Type IPG CV DEVICE CHECK Implantable Pulse Generator Model 1272 Assurity MRI(TM) CV DEVICE CHECK Implantable Pulse Generator Serial Number [id number] CV DEVICE CHECK Implantable Pulse Generator Implant Date [id number] CV DEVICE CHECK Battery Remaining Percentage 92.00 CV DEVICE CHECK Battery Remaining Longevity 125.0 CV DEVICE CHECK Battery Voltage 3.010 CV D EVICE CHECK Battery ASSISTANT PRODUCER Trigger 2.600 CV DEVICE CHECK Battery Status Middle of Service CV DEVICE CHECK Moo Statistic RV Percent Paced 91.00 CV DEVICE CHECK Lead Channel Sensing Intrinsic Amplitude 12.000 CV DEVICE CHECK Lead Channel Setting Sensing Sensitivity 2.00 CV DEVICE CHECK Lead Channel Impedance Value 290 CV DEVICE CHECK Lead Channel Pacing Threshold Amplitude 0.750 CV DEVICE CHECK Lead Channel Pacing Threshold Pulse Width 0.4 CV DEVICE CHECK Lead Channel RV Pacing Threshold Date 2024-07-22 CV DEVICE CHECK Lead Channel Setting Pacing Amplitude 1.000 CV DEVICE CHECK Lead Channel Setting Pacing Pulse Width 0.4 CV DEVICE CHECK Moo Setting Mode (NBG Code) VVIR CV DEVICE CHECK Moo Setting Lower Rate Limit 60 CV DEVICE CHECK Moo Setting Maximum Sensor Rate 120 CV DEVICE CHECK Date of Service 2024-08-04 CV DEVICE CHECK Anatomical Region Laterality Modality Device Interroga tion 07/22/2024 3:47 PM EDT Impressions 07/27/2024 12:23 PM EDT Normal Remote: No Events * Normal Device Function * Alerts or events: None * Battery: Battery is at 92%, 10.42 yrs * Sensing, impedance and thresholds reviewed * Programmed parameters reviewed * Presenting rhythm reviewed * Heart Rate Histograms reviewed * No significant changes noted Narrative Procedure Note Sid Toney MD - 07/27/2024 IMPRESSION: Normal Remote: No Events * Normal Device Function * Alerts or events: None * Battery: Battery is at 92%, 10.42 yrs * Sensing, impedance and thresholds reviewed * Programmed parameters reviewed * Presenting rhythm reviewed * Heart Rate Histograms reviewed * No significant changes noted Sid Toney MD CV IMPLANTABLE CARDIAC DEVICE PROCEDURES Final Result * (ABNORMAL) Basic metabolic panel (04/23/2024 10:47 AM EST) Glucose 222(H) 70 - 99 mg/dL [facility] 1 Blood Urea Nitrogen (BUN) 81(HH) 8 - 27 mg/dL [facility] 1 Creatinine 2.62(H) 0.76 - 1.27 mg/dL [facility] 1 eGFR 24(L) >59 mL/min/1.7 3 [facility] 1 BUN/Creatinine Ratio 31(H) 10 - 24 [facility] 1 Sodium 140 134 - 144 mmol/L [facility] 1 Potassium 4.6 3.5 - 5.2 mmol/L [facility] 1 Chloride 106 96 - 106 mmol/L [facility] 1 Carbon Dioxide 19(L) 20 - 29 mmol/L [facility] 1 Calcium 8.9 8.6 - 10.2 mg/dL [facility] 1 04/23/2024 10:4 7 AM EST 04/23/2024 Narrative [facility] 1 - 04/24/2024 6:07 AM EST Performed at: 01 - [facility] [address] [id number] Heel Cover Softener: Christin Pavon MD, Phone: [phone] Cherelle Cohen NP LAB BLOOD ORDERABLES Final Result [facility] 1 from Last 3 Months or Most Recently Relevant to Health Maintenance Insurance [employer] [place] [employer] ADVANTAGE Advance Directives Documents on File Type Date Recorded Patient Rn Informatics Expl anation Health Care Decision (hx) 12/29/2016 AD SMITH DIRECTIVE Health Care Decision (hx) 12/29/2016 AD SMITH DIRECTIVE Health Care Decision (hx) 12/29/2016 AD SMITH DIRECTIVE Health Care Decision (hx) 12/29/2016 AD SMITH DIRECTIVE Health Care Decision (hx) 12/29/2016 AD SMITH DIRECTIVE Health Care Decision (hx) 12/29/2016 AD SMITH DIRECTIVE Health Care Decision (hx) 12/29/2016 AD SMITH DIRECTIVE Health Care Decision (hx) 12/29/2016 AD SMITH DIRECTIVE Health Care Decision (hx) 12/29/2016 AD SMITH DIRECTIVE Health Care Decision (hx) 12/29/2016 AD SMITH DIRECTIVE Health Care Decision (hx) 12/29/2016 AD SMITH DIRECTIVE Health Care Decision (hx) 12/29/2016 AD SMITH DIRECTIVE Health Care Decision (hx) 12/29/2016 AD SMITH DIRECTIVE Health Care Decision (hx) 12/29/2016 AD SMITH DIRECTIVE Health Care Decision (hx) 12/29/2016 AD SMITH DIRECTIVE Health Care Decision (hx) 12/29/2016 AD SMITH DIRECTIVE Health Care Decision (hx) 12/29/2016 AD SMITH DIRECTIVE Health Care Decision (hx) 12/29/2016 AD SMITH DIRECTIVE Health Care Decision (hx) 12/29/2016 AD SMITH DIRECTIVE Health Care Decision (hx) 12/29/2016 AD SMITH DIRECTIVE Health Care Decision (hx) 12/29/2016 AD SMITH DIRECTIVE Health Care Decision (hx) 12/29/2016 AD SMITH DIRECTIVE Health Care Decision (hx) 12/29/2016 AD SMITH DIRECTIVE Health Care Decision (hx) 12/29/2016 AD SMITH DIRECTIVE Health Care Decision (hx) 12/29/2016 AD SMITH DIRECTIVE Care Teams Activities Volunteer Relationship Specialty Start Date End Date Chauncey Salmeron MD [address] [place] [address] [address] [place], [place] PCP - General Internal Medicine 02/20/18
--- OUTSIDE RECORDS SUMMARY | 2024-10-27 19:52 | XMS_ITS ---
Author Name [facility] Organization Unknown Results Test Name/Text Value Interpretation Date Range Source GLUCOSE BLDC GLUCOMTR [facility] 121.0 mg/dL Normal 09/25/2023 70 - 199 [facility] INR BldC 1.4 Above high normal 09/25/2023 0.8 - 1.1 C [facility] ABO+RH GP BLD O POSITIVE Normal [facility] SCN SERPL QL NEGATIVE Normal 09/25/2023 [facility] BLOOD BANK CMNT PATIENT-IMP Testing performed at [facility], [address] [place] [address], Keily Landaverde MD Sales And Marketing Executive, [facility] [id number] Normal 09/25/2023 [facility] ABO+RH GP BLD O POSITIVE Normal 09/25/2023 [facility] BLOOD BANK CMNT PATIENT-IMP Testing performed at [facility], [address] [place] [address], Keily Landaverde MD Sales And Marketing Executive, [facility] [id number] Normal 09/25/2023 [facility] GLUCOSE BLDC GLUCOMTR MCNC 140.0 mg/dL Normal 09/25/2023 70 - 199 [facility] History of Medication Use Medication Directions Dispensed Refills Start Date End Date Stat dexamethasone (DECADRON) injection 4 mg 4 mg, Intravenous, Once as needed, other, nausea, vomiting, Starting on Cathy 09/25/23 at 1129, For 1 dose, PACU/Phase 1Administer 2nd unless given in the OR if zofran is ineffective and patient continues to be symptomatic. 09/25/2023 active amLODIPine (NORVASC) 10 mg tablet Take 1 tablet (10 mg total) by mouth 1 (one) time each day. 09/24/2023 active isosorbide mononitrate (IMDUR) 30 MG 24 hr tablet Take 1 tablet (30 mg total) by mouth daily. 07/20/2023 active furosemide (LASIX) 80 mg tablet Take 1 Tablet by mouth 2 times daily. - Oral 07/18/2023 active furosemide (LASIX) 80 mg tablet Take 0.5 tablets (40 mg total) by mouth 2 (two) times a day. 07/18/2023 active atorvastatin (LIPITOR) 80 mg tablet TAKE 1 TABLET BY MOUTH EVERY DAY. 07/14/2023 active atorvastatin (LIPITOR) tablet 80 mg Take 1 tablet (80 mg total) by mouth every night at bedtime. 07/14/2023 active hydrALAZINE (APRESOLINE) 100 MG tablet Take 1 tablet (100 mg total) by mouth 2 (two) times a day. 07/14/2023 active medical supply, miscellaneous (MISCELLANEOUS MEDICAL SUPPLY MISC) Gauze Pads & Dressings (Kerlix Bandage Roll) Misc 1 Each by Does not apply route daily. - Does not apply 11/15/2022 active acetaminophen (TYLENOL) 325 mg tablet Take 2 tablets (650 mg total) by mouth every 8 (eight) hours if needed. active allopurinoL (ZYLOPRIM) 100 mg tablet Take 2 tablets (200 mg total) by mouth 1 (one) time each day. active ascorbic acid, vitamin C, 500 mg capsule Take 1 capsule by mouth 1 (one) time each day. active aspirin 81 mg EC tablet Take 1 tablet (81 mg total) by mouth 1 (one) time each day. active doxazosin XL (CARDURA XL) 4 mg 24 hr tablet Take 1 tablet (4 mg total) by mouth 1 (one) time each day with breakfast. Do not crush, chew, or split. active glipiZIDE (GLUCOTROL) 5 mg tablet Take 1 tablet (5 mg total) by mouth 1 (one) time each day. active hydrALAZINE (APRESOLINE) 100 mg tablet Take 1 tablet (100 mg total) by mouth 2 (two) times a day. active isosorbide mononitrate (IMDUR) 30 mg 24 hr tablet Take 1 tablet (30 mg total) by mouth 1 (one) time each day. active levocetirizine (XYZAL) 5 mg tablet Take 1 tablet (5 mg total) by mouth 1 (one) time each day in the evening. active warfarin (COUMADIN) 1 mg tablet Take by mouth 1 (one) time each day with dinner. active Allergies Allergen Reaction Severity Comment Documented Date Source Statu s CLOPIDOGREL ITCHING 12/17/2023 [facility] active LISINOPRIL 09/17/2023 [facility] active CEFAZOLIN 03/25/2022 [facility] active SULFAMETHOXAZOLE- TRIMETHOPRIM OTHER (SEE COMMENTS) Per patient, affected his kidneys, ,Kidney related issues 10/17/2021 [facility] active Problems Problem Status Onset Date Problem Type Date of Resolution Source Pulmonary hypertension ([facility] V24, [facility] V28) active 2024-07-12 ProblemAct [facility] Laceration of left lower leg without complication active 2022-03-25 ProblemAct [facility] Atrial fibrillation ([facility] V24, [facility] V28) active 2022-03-13 ProblemAct [facility] CAD (coronary artery disease) active 2019-09-16 ProblemAct [facility] CKD (chronic kidney disease), stage IV ([facility] V24, [facility] V28) active 2022-03-25 ProblemAct [facility] Type 2 diabetes mellitus ([facility] V24, [facility] V28) active 2019-09-16 ProblemAct [facility] Hyperlipidemia active 2019-09-16 ProblemAct [facility]_ [facility] Chronic kidney disease (CKD), stage III (moderate) ([facility] V24, [facility] V28) active 2019-09-16 ProblemAct [facility] (HFpEF) heart failure with preserved ejection fraction ([facility] V24, [facility] V28) active 2022-03-25 ProblemAct [facility] Encounter for adjustment or management of cardiac device active EncounterDiagnosisAct [facility] (HFpEF) heart failure with preserved ejection fraction ([facility] V24, [facility] V28) active 2022-03-25 ProblemAct [facility] Encounter for adjustment or management of cardiac device active EncounterDiagnosisAct [facility] S/P TAVR (transcatheter aortic valve replacement) active 2024-04-07 ProblemAct [facility] Non-pressure chronic ulcer of lower leg, left, limited to breakdown of skin ([facility] V24, [facility] V28) active 2022-03-25 ProblemAct [facility] Hypertension active 2019-09-16 ProblemAct [facility] Bilateral carotid artery stenosis active 2018-05-11 ProblemAct [facility] PAD (peripheral artery disease) ([facility] V24) active 2018-05-11 ProblemAct [facility] Atrial fibrillation active 2023-09-25 ProblemAct [facility] Longstanding persistent atrial fibrillation ([facility]) active EncounterDiagnosisAct [facility] Immunizations Vaccine Date Source Lot Number Status Moderna SARS-CoV-2 COVID-19, mRNA, LNP-S, preservative free 07/30/2021 [facility]RIC[facility] [id number] completed Yodlee[employer]/Biot[employer]ix SARS-CoV-2 COVID -19, vector-nr, rS-Ad26, preservative free 02/14/2021 [facility]_PATRICIA UNK completed Moderna SARS-CoV-2 COVID-19, mRNA, LNP-S, preservative free 01/13/2021 CT_PATRICIA [id number] completed [employer] SARS-CoV-2 COVID -19, vector-nr, rS-Ad26, preservative free 06/21/2020 [facility]_PATRICIA [id number] completed [employer] SARS-CoV-2 COVID -19, vector-nr, rS-Ad26, preservative free 03/17/2020 CT_PATRICIA UNK completed Encounters Encounter Type Encounter Reason Primary Diagnosis Location Date Inpatient Longstanding persistent atrial fibrillation Longstanding persistent atrial fibrillation [facility] [place] [facility] 09/25/2023 Care Team Organization Name Specialty Phone Email Start Date End Da te [facility] [place] [facility] 4 09/28/2024 [facility] 4
--- OUTSIDE RECORDS SUMMARY | 2024-10-27 19:52 | XMS_ITS | Clinical Summary ---
Author Organization [facility] Address [address] [place] [address] Phone Care Team Providers Care Dolphin Researcher Name Role Phone Chauncey Salmeron MD Primary Care Provider [phone] Allergies Active Allergy Reactions Criticality Noted Date [...] Active Additional Information Patient not taking.Reported on 09/20/2024 apixaban (Eliquis) 2.5 MG tablet Take 2.5 [...] catheterization 03/25/2022 12/18/2022 Overview (12/18/2022): Done at [facility] on 03/19/22 with SAMARA - indications: CHF [...] bpm. We did keep patient on the envelope cutter for a more prolonged period and there [...] Stenosis of bilateral carotid arteries 9 12/18/2022 Encounters Date Type Department Care Team Description 09/20/2024 2:45 PM EDT Office Visit [facility] [address] [place] [address] Mustapha Lerma MD Chronic kidney disease, stage 4 (severe) (HCC) (Primary Dx); Type 2 diabetes mellitus with diabetic chronic kidney disease (HCC); Renal osteodystrophy 09/13/2024 Orders Only [facility] [address] [place] [id number] Mustapha Lerma MD from Last 3 Months Immunizations Immunization Administration Dates Next Due Influenza [...] Sign Reading Time Taken Comments Blood Pressure 139/64 09/20/2024 2:34 PM EDT Pulse 66 09/20/2024 2:34 PM EDT Temperature - - Respiratory Rate - - Oxygen Saturation 98% 09/20/2024 2:34 PM EDT Inhaled Oxygen Concentration - - Weight 99.2 kg (218 lb 12.8 oz) 09/20/2024 2:34 PM EDT Height 180.3 cm (5' 11 ) 06/30/2019 12: 00 PM EDT Body Mass Index 30.52 06/30/2019 12:00 PM EDT Plan of Treatment Upcoming Encounters Date Type Department Care Team (Late st Contact Info) Description 03/28/2025 3:00 PM EST Office Visit [facility] [address] [place] [address] Mustapha Lerma MD [address] [facility] [address] [place] [address] Health Maintenance Due Date Last Done Comments Pneumococcal Vaccine: 50+ Ye ars (2 of 2 - PPSV23, PCV20, or PCV21) 06/04/2016 04/09/2016 Diabetes: Hemoglobin A1C 07/18/2021 Diabetes: Ophthalmology Exam 07/18/2021 Diabetes: Pedal Pulse Checked 07/18/2021 Diabetes: Sensory Foot Exam 07/18/2021 Diabetes: Visual Foot Exam 07/18/2021 Influenza Vaccine (#1) 2024 12/06/2019 Pneumococcal Vaccine: Peds ( 0 to 5 Years) and At-Risk Patients (6 to 49 Years) Discontinued 04/09/2016 Hepatitis B Vaccine Aged Out No longe r eligible based on patient's age to complete this topic Procedures Procedure Name Priority Date/Time Associated Diagnosis Comments SPECIMEN STATUS REPORT Routine 09/13/2024 9:48 AM EDT PTH, INTACT Routine 09/13/2024 9:48 AM EDT URINE CULTURE Routine 09/13/2024 9:48 AM EDT MAGNESIUM Routine 09/13/2024 9:48 AM EDT VITAMIN D 25 HYDROXY Routine 09/13/2024 9:48 AM EDT URINE ALBUMIN / CREATININE RATIO Routine 09/13/2024 9:48 AM EDT PROTEIN / CREATININE RATIO, URINE Routine 09/13/2024 9:48 AM EDT CBC Routine 09/13/2024 9:48 AM EDT RENAL FUNCTION PANEL Routine 09/13/2024 9:48 AM EDT URINALYSIS WITH MICROSCOPIC Routine 09/13/2024 9:48 AM EDT RESULT Routine 09/13/2024 9:48 AM EDT MICROSCOPIC EXAMINATION - DO NOT USE Routine 09/13/2024 9:48 AM EDT from Last 3 Months Results * SPECIMEN STATUS REPORT (09/13/2024 9:48 AM EDT) Specimen Status Comment [facility] [place] Comment: Ambig Abbrev RP10 Default Ambig Abbrev RP10 Default A hand-written panel/profile was received from your office. In accordance with the [facility] Ambiguous Test Code Policy dated September 2002, we have completed your order by using the closest currently or formerly recognized AMA panel. We have assigned Renal Panel (10), Test Code #[id number] to this request. If this is not the testing you wished to receive on this specimen, please contact the [facility] Client Inquiry/Technical Services Department to clarify the test order. We appreciate your business. 09/13/2024 9:48 AM EDT 09/13/2024 Comment:UR us Mustapha Lerma MD LAB BLOOD ORDERABLES Final Re sult [facility] [address] [place] [address] * Result (09/13/2024 9:48 AM EDT) Result No growth [facility] 09/13/2024 9:48 AM EDT 09/13/2024 Mustapha Lerma MD LAB MICROBIOLOGY - GENERAL OR DERABLES Final Result [facility] [address] [place] [address] * Microscopic Examination (09/13/2024 9:48 AM EDT) WBC, Urine None seen 0 - 5 /hpf [facility] RBC, Urine 0-2 0 - 2 /hpf [facility] Squamous Epithelial, Urine 0-10 0 - 10 /hpf [facility] Casts None seen None seen /lpf [facility] Bacteria, Urine None seen None seen/Few [facility] 09/13/2024 9:48 AM EDT 09/13/2024 Mustapha Lerma MD LAB MICROBIOLOGY - GENERAL OR DERABLES Final Result [facility] [address] [place] [address] * (ABNORMAL) Protein, Total, Random Urine w/Creatinine (Protein/Creat Ratio) (09/13/2024 9:48 AM EDT) Creatinine, Ur 77.5 Not Estab. mg/dL [facility] Protein, Ur 16.0 Not Estab. mg/dL [facility] Urine Protein/Creati nine Ratio 206(H) 0 - 200 mg/g creat [facility] 09/13/2024 9:48 AM EDT 09/13/2024 Comment:UR Mustapha Lerma MD LAB URINE ORDERABLES Final Re sult Performing Organization Address [facility] Co de Phone Number [facility] [place] [address] [place] [address] * (ABNORMAL) Urine Albumin / Creatinine Ratio (09/13/2024 9:48 AM EDT) Albumin, Urine 36.1 Not Estab. ug/mL [facility] Albumin/Creatin ine Ratio 47(H) 0 - 29 mg/g creat [facility] Comment: Normal: 0 - 29 Moderately increased: 30 - 300 Severely increased: >300 09/13/2024 9:48 AM EDT 09/13/2024 Comment:UR Mustapha Lerma MD LAB URINE ORDERABLES Final Re sult Performing Organization Address [facility] de Phone Number [facility] [address] [place] [address] * Vitamin D 25 Hydroxy (09/13/2024 9:48 AM EDT) Vitamin D, 25-OH, Total 52.6 30.0 - 100.0 ng/mL [facility] Comment: Vitamin D deficiency has been defined by the [place] of Medicine and an Endocrine Society practice guideline as a level of serum 25-OH vitamin D less than 20 ng/mL (1,2). The Endocrine Society went on to further define vitamin D insufficiency as a level between 21 and 29 ng/mL (2). 1. IOM ([place] of [employer]). 2010. Dietary reference intakes for calcium and D. [place]: The National Academies Press. 2. Vandana MF, Himanshu NC, Karen BARNEY, et al. Evaluation, treatment, and prevention of vitamin D deficiency: an Endocrine Society clinical practice guideline. JCEM. 2010; 96(7):1911-30. 09/13/2024 9:48 AM EDT 09/13/2024 Comment:UR us Mustapha Lerma MD LAB BLOOD ORDERABLES Final Re sult [facility] [address] [place] [address] * Urinalysis with microscopic (09/13/2024 9:48 AM EDT) Specific [place], Urine 1.015 1.005 - 1.030 [facility] [phone] pH Urine 5.5 5.0 - 7.5 [facility] Color, Urine Yellow Yellow [facility] Appearance Urine Clear Clear [facility] [place] [phone] WBC Esterase Urine Negative Negative [facility] Protein, Ur Negative Negative/Tra ce [facility] Glucose, Ur Negative Negative [facility] Ketones, Urine Negative Negative [facility] [place] [phone] Blood Urine Negative Negative [facility] [phone] Bilirubin Urine Negative Negative [facility] [place] Urobilinogen Urine 0.2 0.2 - 1.0 mg/dL [facility] Nitrite, Urine Negative Negative [facility] Microscopic Examination Comment [facility] Comment:Microscopic follows if indicated. Other Microsc. Observations See below: [facility] Comment:Microscopic was ronan cated and was performed. 09/13/2024 9:48 AM EDT 09/13/2024 Mustapha Lerma MD LAB URINE ORDERABLES Final Re sult [facility] [address] [place] [address] * (ABNORMAL) CBC (09/13/2024 9:48 AM EDT) WBC 8.8 3.4 - 10.8 x10E3/uL [facility] RBC 5.20 4.14 - 5.80 x10E6/uL [facility] Hemoglobin 10.8(L) 13.0 - 17.7 g/dL [facility] Hematocrit 36.6(L) 37.5 - 51.0 % [facility] MCV 70(L) 79 - 97 fL [facility] MCH 20.8(L) 26.6 - 33.0 pg [facility] MCHC 29.5(L) 31.5 - 35.7 g/dL [facility] RDW 18.9(H) 11.6 - 15.4 % [facility] Platelets 188 150 - 450 x10E3/uL [facility] 09/13/2024 9:48 AM EDT 09/13/2024 Mustapha Lerma MD LAB BLOOD ORDERABLES Final Re sult [facility] [address] [place] [address] * Urine Culture (09/13/2024 9:48 AM EDT) Culture Result, Urine Final report [facility] 09/13/2024 9:48 AM EDT 09/13/2024 Comment:UR Mustapha Lerma MD LAB URINE ORDERABLES Final Re sult Performing Organization Address [facility]/ZIP Co de Phone Number [facility] [address] [place] [address] * PTH, Intact (09/13/2024 9:48 AM EDT) PTH 33 15 - 65 pg/mL [facility] 09/13/2024 9:48 AM EDT 09/13/2024 Mustapha Lerma MD LAB BLOOD ORDERABLES Final Re sult Performing Organization Address [facility] Co de Phone Number [facility] [address] [place] [address] * Magnesium (09/13/2024 9:48 AM EDT) Magnesium 2.3 1.6 - 2.3 mg/dL [facility] 09/13/2024 9:48 AM EDT 09/13/2024 Comment:UR Mustapha Lerma MD LAB BLOOD ORDERABLES Final Re sult Performing Organization Address [facility] de Phone Number [facility] [address] [place] [address] * (ABNORMAL) Renal Function Panel (09/13/2024 9:48 AM EDT) Glucose 196(H) 70 - 99 mg/dL [facility] BUN 88(HH) 8 - 27 mg/dL [facility] Creatinine 3.36(H) 0.76 - 1.27 mg/dL [facility] eGFR CKD-EPI CR 2020 18(L) >59 mL/min/1.7 3 [facility] BUN/Creatinine Ratio 26(H) 10 - 24 [facility] Sodium 140 134 - 144 mmol/L [facility] Potassium 4.7 3.5 - 5.2 mmol/L [facility] Chloride 102 96 - 106 mmol/L [facility] Bicarbonate (CO2) 21 20 - 29 mmol/L [facility] Calcium 9.1 8.6 - 10.2 mg/dL [facility] Albumin 4.3 3.8 - 4.8 g/dL [facility] Phosphorus 3.3 2.8 - 4.1 mg/dL [facility] 09/13/2024 9:48 AM EDT 09/13/2024 Comment:UR Mustapha Lerma MD LAB BLOOD ORDERABLES Final Re sult [facility] [address] [place] [address] from Last 3 Months Insurance [facility] Member Subscriber Plan / Payer (Ef fective 2019-Present) Name:Jose Angel Denson Relation to Subscriber:Self Name:Jose Angel Denson Payer ID:Not on file Type:Not on file Address: [address] [id number] [place] [address] Medicare Care Teams Dolphin Researcher Relationship Specialty Start Date End Date Chauncey Salmeron MD [facility] [address] [place] [address] [address] [place] [facility] - General 03/27/20
--- OUTSIDE RECORDS SUMMARY | 2024-10-27 19:52 | XMS_ITS | Clinical Summary ---
Author Organization [facility] Address [address] [place] [address] Care Team Providers Care Apprentice Electrician Name Role Phone Chauncey Salmeron MD Primary Care Provider [phone] Allergies Active Allergy Reactions Criticality Noted Date Comments Sulfamethoxazole-Trime thoprim Other (See Comments) 09/17/2023 Kidney related issues Cefazolin 09/17/2023 Lisinopril 09/17/2023 Medications Medication Sig Dispensed Refills Start Date End Date Status amLODIPine (NORVASC) tablet 10 mg Take 1 tablet (10 mg total) by mouth daily. 0 07/20/2023 Active atorvastatin (LIPITOR) tablet 80 mg Take 1 tablet (80 mg total) by mouth every night at bedtime. 0 07/14/2023 Active furosemide (LASIX) 80 MG tablet Take 1 tablet (80 mg total) by mouth 2 (two) times a day. 0 07/18/2023 Active hydrALAZINE (APRESOLINE) 100 MG tablet Take 1 tablet (100 mg total) by mouth 2 (two) times a day. 0 07/14/2023 Active isosorbide mononitrate (IMDUR) 30 MG 24 hr tablet Take 1 tablet (30 mg total) by mouth daily. 0 07/20/2023 Active doxazosin (CARDURA) 4 MG tablet Take 1 tablet (4 mg total) by mouth every night at bedtime. 0 Active acetaminophen (TYLENOL) 325 MG tablet Take 2 tablets (650 mg total) by mouth every 8 (eight) hours as needed. 0 Active Multiple Vitamin (MULTIVITAMIN ADULT PO) Take 1 tablet by mouth daily. 0 Active allopurinol (ZYLOPRIM) 100 MG tablet Take 2 tablets (200 mg total) by mouth daily. 0 Active glipiZIDE (GLUCOTROL) tablet 5 mg Take 1 tablet (5 mg total) by mouth daily. 0 Active aspirin 81 MG chewable tablet Chew 1 tablet (81 mg total) by mouth daily. 0 Active Active Problems Problem Noted Date Diagnosed Date Atrial fibrillation 09/25/2023 Social History Tobacco Use Types Packs/Day Years Used Date Smoking Tobacco: Never Smokeless Tobacco: Never Alcohol Use Standard Drinks/Week Comments Yes 0 (1 standard drink = 0.6 oz pur e alcohol) social 1 weekly Sex and Gender Information Value Date Recorded Sex Assigned at Not on file Gender Identity Not on file Sexual Orientation Not on file Job Start Date Occupation Industry Not on file Not on file Not on file Last Filed Vital Signs Vital Sign Reading Time Taken Comments Blood Pressure 129/58 09/25/2023 3:30 PM EDT Pulse 60 09/25/2023 3:30 PM EDT Temperature 36.8 C (98.2 F) 09/25/2023 11:38 AM EDT Respiratory Rate 11 09/25/2023 3:30 PM EDT Oxygen Saturation 97% 09/25/2023 3:30 PM EDT Inhaled Oxygen Concentration - - Weight 94.8 kg (209 lb) 09/25/2023 9:00 AM EDT Height 180.3 cm (5' 11 ) 09/25/2023 9:00 AM EDT Body Mass Index 29.15 09/25/2023 9:00 AM EDT Plan of Treatment Health Maintenance Due Date Last Done Comments Hepatitis C Screening 1945 Depression Screening 1958 Preventative Health Evaluation 1964 DTap / Tdap / Td (1 - Tdap) 1965 Shingrix-Zoster Vaccine (1 o f 2) 1996 Fall Risk Assessment 11/25/2011 Pneumococcal Vaccine (2 of 2 - PPSV23 or PCV20) 04/09/2017 04/09/2016 RSV Adult > 60+ Yrs or (1 - 1-dose 75+ series) 2021 COVID-19 Vaccine (4 - 2023-2 5 season) 2023 02/14/2021, 06/21/2020, 03/17/2020 Influenza Vaccine (#1) 2024 12/06/2019 Hepatitis B Vaccines Aged Out No long er eligible based on patient's age to complete this topic RSV Ped < 20 months Aged Out No longe r eligible based on patient's age to complete this topic Medical Devices Implanted Type Area Home Office Claim Specialist Device Identifier Shelf Expiration Date Model / Serial / Lot Device Clsur Watchman Flx Pro Shannan 31mm Bsci-Prnt [id number] - [id number] Implanted:Qty: 1 on 09/25/2023 by [place] [facility] [place] [facility] [place] Left: Heart Simple Tithe ESTELITA [id number] / [id number] / Description:Left atrial appe ndage closure device Advance Directives For more information, please contact: [phone] Latest Code Status on File Code Status Date Activated Date Inactivated Comments Full Code 09/25/2023 11:28 AM 09/25/2023 11:04 PM Thi s code status was ascertained in the following way: discussion with patient . Care Teams Apprentice Electrician Relationship Specialty Start Date End Date Chauncey Salmeron MD [address] [facility] [address] [place] [address] PCP - General Geriatric Medicine 09/24/23
--- NOTE | 2024-10-27 20:08 | ED.GENADULT ---
HPI - General Adult General Chief complaint: Extremity Injury, Lower Stated complaint: ? blood clot in rt leg, pain/swelling Time Seen by Provider: 10/27/24 19:52 Source: patient Mode of arrival: ambulatory Limitations: no limitations History of Present Illness ED Provider: HPI narrative: Patient is diabetic with peripheral vascular disease while 3 -4 days ago patient has had a small blister in his lower extremity which got ruptured since then patient is having redness and swelling of the right leg spreading to the knee patient was afraid of blood clots hence it came here no fever no chills venous Doppler done prior to my evaluation which was negative for DVT Related Data Home Medications ?Medication ?Instructions ?Recorded ?Confirmed allopurinol 100 mg tablet 100 mg PO DAILY 11/27/20 11/27/20 amlodipine 5 mg tablet 5 mg PO DAILY 11/27/20 11/27/20 atorvastatin 40 mg tablet 40 mg PO BEDTIME 11/27/20 11/27/20 cilostazol 50 mg tablet 50 mg PO BID 11/27/20 11/27/20 clopidogrel 75 mg tablet 75 mg PO DAILY 11/27/20 11/27/20 doxazosin 4 mg tablet 4 mg PO BEDTIME 11/27/20 11/27/20 furosemide 20 mg tablet 40 mg PO DAILY 11/27/20 11/27/20 glipizide 5 mg tablet 5 mg PO DAILY 11/27/20 11/27/20 isosorbide mononitrate 30 mg 30 mg PO DAILY 11/27/20 11/27/20 tablet,extended release 24 hr pantoprazole 40 mg tablet,delayed 40 mg PO DAILY 11/27/20 11/27/20 release Previous Rx's ?Medication ?Instructions ?Recorded oxycodone 5 mg tablet 5 mg PO Q8H PRN pain #7 tabs 03/08/21 bacitracin 500 unit/gram topical 1 appl topical BID #30 grams 10/16/21 ointment cephalexin 500 mg capsule 500 mg PO QID 7 days #28 caps 10/16/21 amoxicillin 875 mg-potassium 1 tab PO BID 7 days #14 tabs 04/07/22 clavulanate 125 mg tablet cephalexin 500 mg capsule 500 mg PO Q8H #21 caps 09/05/24 doxycycline hyclate 100 mg capsule 100 mg PO BID #14 caps 09/05/24 mupirocin 2 % topical ointment 1 appl topical BID #22 grams 09/08/24 (Centany) Allergies Allergy/AdvReac Type Severity Reaction Status Date / Time sulfamethoxazole (From Allergy Affected Verified 10/27/24 17:36 Bactrim) Kidneys trimethoprim (From Bactrim) Allergy Affected Verified 10/27/24 17:36 Kidneys Review of Systems Review of Systems: Yes all other systems are reviewed and are negative [facility] Past Medical History Medical History AV block, 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 CKD (chronic kidney disease), stage III Peripheral arterial occlusive disease Arthritis GERD (gastroesophageal reflux disease) BPH (benign prostatic hyperplasia) Gout Diabetes CHF (congestive heart failure) HTN (hypertension) Elevated cholesterol CAD (coronary artery disease) Surgical History Hx of CABG Hx of angioplasty History of bilateral total hip arthroplasty History of carotid endarterectomy Hx of coronary angioplasty Social History Social History Are you a primary child care associate to a significant other at home: No Do you presently have visiting nurse or other home services: No Patient Tobacco Use Status: Never used Tobacco Smoked in Last 30 Days: No Use of substances other than those prescribed or required for medical reasons: No Advance Directives: No Advance Directives Information Provided: Yes Do you have a plan to hurt others: No Plan Physical Exam ED Vital Signs: Vital Signs - 24 hr 10/27/24 17:33 10/27/24 19:21 Temperature 97.8 F 97.9 F Pulse Rate 65 60 Respiratory Rate 12 17 Blood Pressure 142/63 H 156/46 H Pulse Oximetry 95 97 Oxygen Delivery Method Room Air Room Air BMI result Body Mass Index 29.4 Appearance: Alert. Oriented X3. No acute distress. Eyes: No pallor or icterus ENT: Pharynx normal. Oral Mucosa moist Neck: Normal inspection. Neck supple. CVS: Normal heart rate and rhythm. Pulses normal. Respiratory: No respiratory distress. Equal air entry bilateral, no wheezing/rales/rhonchi Abdomen: Soft and nontender. Bowel sounds are present, no mass palpable, no CVA tenderness Skin: Skin warm and dry. Normal skin color. Normal skin turgor. Extremities: Trace lower extremity edema b/l superficial ruptured blister right casarez in lower leg with surrounding cellulitic changes spreading to the knee. No calf tenderness Neuro: Oriented X 3. No motor deficit. No sensory deficit.No cerebellar signs , cranial nerves II-XII intact Medications Administered Discontinued Medications Generic Name Dose Route Start Last Admin Trade Name Freq PRN Reason Stop Dose Admin Doxycycline Monohydrate 100 mg 10/27/24 20:04 10/27/24 20:49 Doxycycline Monohydrate 100 Mg Capsule PO 10/27/24 20:05 100 mg ONCE ONE Administration Sodium Chloride 1,000 mls @ 999 mls/hr 10/27/24 20:10 10/27/24 20:19 Ns IV 10/27/24 21:10 999 mls/hr .Q1H1M ONE Administration Cefazolin Sodium/Dextrose 2 gm in 50 mls @ 100 mls/hr 10/27/24 20:15 10/27/24 20:49 Ancef IV 10/27/24 20:44 100 mls/hr ONCE ONE Administration Medical Decision Making Medical Decision Making [facility] Narrative: Patient's cellulitic changes of the right lower extremity with history of diabetes and peripheral vascular disease lab workup shows slight leukocytosis patient is afebrile no signs of sepsis. Patient is offered to stay in the hospital would prefer to take IV antibiotic dose and try p.o. trial and if cellulitic changes gets worse will come back will give him 2 g of cefazolin do the blood culture lactic acid levels , fluids for now Patient is still prefer to go home lactic acid level was 0.8 patient has received 1 L of bolus IV fluids antibiotics feeling much better will discharge patient home on oral antibiotic Differential Diagnosis Differential Diagnoses: The differential diagnosis associated with the presentation includes Deep vein thrombosis/cellulitis/chronic dermatitis of PVD Admission/Observation Consideration of admission/observation: Escalation of care including admission/observation considered Lab Data [facility] Lab Attestation statement: I reviewed the patient's lab results. 10/27/24 18:09 10/27/24 18:09 Labs: Lab Results 10/27/24 10/27/24 Range/Units 18:09 20:21 WBC 11.1 H (4.8-10.8) X10*3/uL RBC 5.60 (4.60-5.80) X10*6/uL Hgb 11.6 L (14.0-18.0) g/dl Hct 36.7 L (42.0-52.0) % MCV 65.5 L (80.0-98.0) fL MCH 20.7 L (27.0-33.0) pg MCHC 31.6 (31.0-36.0) g/dl RDW 19.1 H (11.0-16.0) % Plt Count 102 L D (160-400) X10*3/uL MPV Not Reportable Immature Gran % (Auto) 0.4 (0.0-0.4) % Neut % (Auto) 86.9 H (45-73) % Lymph % (Auto) 4.1 L (20-40) % [place] % (Auto) 7.6 (2-11) % Eos % (Auto) 0.8 (0-4) % Baso % (Auto) 0.2 (0-2) % Lymph # (Auto) 0.5 L (1.2-4.9) X10*3/uL [place] # (Auto) 0.9 (0.1-1.2) X10*3/uL Eos # (Auto) 0.1 (0.0-0.4) X10*3/uL Baso # (Auto) 0.0 (0.0-0.2) X10*3/uL Abs Immat Gran (auto) 0.04 H (0.00-0.03) X10*3/uL Absolute Neuts (auto) 9.7 H (2.0-8.3) x10*3/uL Absolute Nucleated RBC 0.000 (0.0-0.012) X10*3/uL Nucleated RBC % (auto) 0.0 (0.0-0.2) /100WBC Smear Tech's Comments VERIFIED PT 11.6 (10.9-12.4) SEC INR 1.0 D (0.9-1.1) Sodium 141 (135-145) mmol/L Potassium 4.6 (3.3-5.1) mmol/L Chloride 105 (96-108) mmol/L Carbon Dioxide 25 (22-29) mmol/L Anion Gap 16 (12-20) BUN 95 H (9-16) mg/dL Creatinine 3.74 H (0.5-1.4) mg/dL Estim Creat Clear Calc 19.5 Estimated GFR 16 Random Glucose 81 (60-115) mg/dL Lactic Acid 0.8 (0.5-2.0) mmol/L Calcium 9.2 (8.4-10.2) mg/dL Total Bilirubin 0.7 (0.0-1.0) mg/dL AST 28 (5-37) U/L ALT 24 (0-40) U/L Alkaline Phosphatase 64 (39-117) U/L Total Protein 7.1 (6.5-8.0) g/dL Albumin 4.5 (3.5-5.0) g/dL Discharge Plan Discharge Clinical Impression: Cellulitis Patient Disposition: Home, Self-Care Instructions: Cellulitis (ED) Additional Instructions: Local care of the superficial wound of the right leg as advised Take oral antibiotic as prescribed Report to the ER if worsening of the redness or pain in the right leg Prescriptions: No Action atorvastatin 40 mg Tablet 40 mg PO BEDTIME cilostazol 50 mg Tablet 50 mg PO BID isosorbide mononitrate 30 mg Tablet Extended Release 24 Hr 30 mg PO DAILY clopidogrel 75 mg Tablet 75 mg PO DAILY amlodipine 5 mg Tablet 5 mg PO DAILY allopurinol 100 mg Tablet 100 mg PO DAILY pantoprazole 40 mg Tablet,Delayed Release (Dr/Ec) 40 mg PO DAILY doxazosin 4 mg Tablet 4 mg PO BEDTIME furosemide 20 mg Tablet 40 mg PO DAILY glipizide 5 mg Tablet 5 mg PO DAILY oxycodone 5 mg tablet 5 mg PO Q8H PRN (Reason: pain) Qty: 7 0RF Rx Instructions: Hip pain bacitracin 500 unit/gram ointment 1 appl topical BID Qty: 30 0RF cephalexin 500 mg capsule 500 mg PO QID 7 Days Qty: 28 0RF amoxicillin-pot clavulanate 875-125 mg tablet 1 tab PO BID 7 Days Qty: 14 0RF mupirocin [Centany] 2 % ointment 1 appl topical BID Qty: 22 0RF doxycycline hyclate 100 mg capsule 100 mg PO BID Qty: 14 0RF cephalexin 500 mg capsule 500 mg PO Q8H Qty: 21 0RF Print Language: Lithuanian
--- NOTE | 2024-10-27 20:57 | PC.NURSE ---
20gIV placed in the right hand - labs obtained/sent to lab. IVF/abx infusing per provider order.
[2024-10-27 21:35] VITALS: BP 168/86; PULSE 68; RESP 17; TEMP 36.6; O2SAT 97
[2024-10-27 21:36] VITALS: BP 168/86; PULSE 68; RESP 17; TEMP 36.6; O2SAT 97
== END 2024-10-27 21:40 | disposition home or self-care (01) ==
PROVIDERS: Registered Nurse Emergency; Emergency Provider Internal Medicine; PCP Internal Medicine
DX: L03.115 Cellulitis of right lower limb (principal); R60.0 Localized edema; Z79.899 Other long term (current) drug therapy
CPT/HCPCS: 36415; 80053; 83605; 85025; 85610; 87040; 93971; 96361; 96374; 99284; J0690

== ENCOUNTER → 2024-10-27 17:34 | Outpatient (BNV) | payer MEDICARE, OTHER, SELFPAY | PROVIDERS: PCP Internal Medicine; Visit Provider Radiology Diagnostic Radiology | DX: M79.661 Pain in right lower leg (principal); R22.41 Localized swelling, mass and lump, right lower limb | CPT/HCPCS: 93971 ==

== ENCOUNTER 2024-10-28 23:18 | Inpatient (IN) | payer MEDICARE, OTHER, SELFPAY ==
--- NOTE | ~2024-10-28 | CT_ITS ---
EXAMINATION: CT ABDOMEN AND PELVIS WITHOUT CONTRAST CLINICAL INFORMATION: Generalized abdominal pain. Nausea. COMPARISON: None available. TECHNIQUE: Multidetector volumetric imaging was performed from the superior aspect of the liver through the pubic symphysis. Sagittal and coronal reformatted images were obtained on the technologist's workstation. This CT examination was performed using dose optimization techniques as appropriate, variously including the following: *Automated exposure control *Adjustment of mA and/or kV according to patient size (this includes techniques or standardized protocols for targeted exams where dose is matched to indication/reason for exam; i.e. extremities or head) *Use of iterative reconstruction technique. DLP: 892 mGy centimeter. FINDINGS: Limited evaluation of the intra-abdominal organs and vascular structures due to lack of IV contrast. There is beam hardening artifact secondary to metallic hip prosthesis, bilaterally. LUNG BASES: Pulmonary patchy groundglass and linear attenuations both lower lung lobes lingula and to a lesser extent right middle lung lobe. LIVER, GALLBLADDER, AND BILIARY TREE: Liver measures 18 cm. There are multiple small layering intraluminal calcifications in the gallbladder intact. There is a trace of pericholecystic fluid. There is no intrahepatic or extrahepatic biliary ductal dilatation. PANCREAS: No peripancreatic fluid collections. No main pancreatic ductal dilatation. SPLEEN: 12 cm. ADRENAL GLANDS: No nodular lesion. KIDNEYS AND URETERS: Kidneys are small without hydronephrosis or nephrolithiasis. Bilateral perinephric edema pattern, nonspecific. BLADDER: Fluid-filled. GASTROINTESTINAL TRACT: Appendix is normal with inspissated secretions versus tiny appendicolith. Abundant stool in the large intestine. Numerous diverticula in the left hemicolon mostly in the sigmoid colon. No pericolonic edema pattern. No pneumatosis intestinalis. No intestinal obstruction pattern. No ascites. No pneumoperitoneum. No gross intestinal wall thickening. ABDOMINAL WALL: Diastases abdominal rectus muscles in the periumbilical region. No gross umbilical hernia. LYMPH NODES: Nonspecific mildly prominent in the mesentery. VASCULAR: Throughout the abdominal aorta wall the origin of the main renal arteries the mesenteric arteries, iliac arteries and the femoral arteries. Calcified plaques in the coronary arteries. Elevated leads in the right heart chambers. Calcified plaques in the descending thoracic aorta. No aneurysm, abdominal aorta. Calcified plaques in the splenic artery. PELVIC VISCERA: Inadequate evaluation. OSSEOUS STRUCTURES: Multilevel moderate to severe thoracolumbar spondylosis resulting in grade 1 retrolisthesis at L2-3, L3-4 and to a lesser extent L1 to. Multilevel Schmorl nodes. No gross acute fracture. Bilateral hip arthroplasty prosthesis with the cervix/on the left femur. Heterotopic bone formation adjacent to the intertrochanteric regions of the femurs, bilaterally. CT/CT abdomen pelvis wo IV con IMPRESSION: Concerning acute calculus cholecystitis in the correct clinical settings. Hepatosplenomegaly. Diverticular disease, left hemicolon. Concerning medical renal disease without hydronephrosis. Atherosclerosis and coronary artery disease. Multilevel thoracolumbar spondylosis. Fleischner guidelines were followed. Electronically signed by: David Olsen MD 10/29/2024 09:31 AM EDT
[2024-10-28 23:21] VITALS: BP 180/72; PULSE 60; RESP 20; TEMP 36.7; O2SAT 97; BMI 31.4
[2024-10-28 23:46] LABS: Hemoglobin 11.5 g/dl (14.0-18.0); Mean Corpuscular Volume 65.3 fL (80.0-98.0); NRBC Abs Auto 0.000 X10*3/uL (0.0-0.012); NRBC Pct Auto 0.0 /100WBC (0.0-0.2); SCAN SMEAR FLAG 1
[2024-10-28 23:48] LABS: Hematocrit 35.9 % (42.0-52.0); Imm Gran Abs Auto 0.05 X10*3/uL (0.00-0.03); Imm Gran Pct Auto 0.4 % (0.0-0.4); Lymphocytes Absolute Auto 0.5 X10*3/uL (1.2-4.9); MANUAL DIFF FLAG SCAN; Mean Corpuscular HGB Conc 32.0 g/dl (31.0-36.0); Mean Corpuscular Hemoglobin 20.9 pg (27.0-33.0); Red Blood Count 5.50 X10*6/uL (4.60-5.80); White Blood Count 11.2 X10*3/uL (4.8-10.8)
[2024-10-28 23:59] LABS: Alanine Aminotransferase 22 U/L (0-40); Albumin Level 4.2 g/dL (3.5-5.0); Alkaline Phosphatase 73 U/L (39-117); Anion Gap 17 (12-20); Aspartate Amino Transferase 32 U/L (5-37); Blood Urea Nitrogen 86 mg/dL (9-16); Calcium 8.8 mg/dL (8.4-10.2); Carbon Dioxide 20 mmol/L (22-29); Chloride 108 mmol/L (96-108); Creatinine Clr Calc Pharmacy 23.8; Estimated Glomerular Filt Rate 19; Lipase 110 U/L (8-78); Potassium 4.7 mmol/L (3.3-5.1); Sodium 140 mmol/L (135-145); Total Protein 6.8 g/dL (6.5-8.0)
[2024-10-29] VITALS (7 sets, daily range): BP systolic 160–174; BP diastolic 49–75; PULSE 60; RESP 15–18; TEMP 36.1–36.8; O2SAT 94–97
[2024-10-29 00:22] LABS: Resp Syncy Virus RNA Qual PCR NEGATIVE (Negative); SARS COV2 PCR INHOUSE NEGATIVE (Negative)
[2024-10-29 00:24] LABS: PLT ABN DIST 1; Platelet Count 99 X10*3/uL (160-400)
--- NOTE | 2024-10-29 06:43 | ED_ITS ---
HPI - General Adult General Chief complaint: Abdominal Pain Stated complaint: possible allergic reaction to recent meds Time Seen by Provider: 10/29/24 04:30 Source: patient Mode of arrival: ambulatory Limitations: no limitations History of Present Illness ED Provider: Dr. Evangelina Catherine HPI narrative: Patient comes to the emergency room complaining of worsening cellulitis. Patient was seen here 2 days ago. Patient states that he was given IV cefepime and then was discharged with p.o. antibiotics (cephalexin and doxycycline) per his request. He was asked to stay but patient tried to go home and was hoping they would get better with p.o. antibiotics. However, antibiotics are not working and the cellulitis keeps getting worse. Now he sees redness streaking up his thighs. And the pain is getting worse. Patient denies fever chills Related Data Home Medications ?Medication ?Instructions ?Recorded ?Confirmed allopurinol 100 mg tablet 100 mg PO DAILY 11/27/20 amlodipine 5 mg tablet 5 mg PO DAILY 11/27/2011/27 atorvastatin 40 mg tablet 40 mg PO BEDTIME 11/27/20 cilostazol 50 mg tablet 50 mg PO BID 11/27/20 clopidogrel 75 mg tablet 75 mg PO DAILY 11/27/2011/15 doxazosin 4 mg tablet 4 mg PO BEDTIME 11/27/20 furosemide 20 mg tablet 40 mg PO DAILY 11/27/2011/15 glipizide 5 mg tablet 5 mg PO DAILY 11/27/2011/27 isosorbide mononitrate 30 mg 30 mg PO DAILY 11/27/20 0 11/27/20 tablet,extended release 24 hr pantoprazole 40 mg tablet,delayed 40 mg PO DAILY 11/2711/27/20 release Previous Rx's ?Medication ?Instructions ?Recorded oxycodone 5 mg tablet 5 mg PO Q8H PRN pain #7 tabs 03/08/21 bacitracin 500 unit/gram topical 1 appl topical BID #3 0 grams 10/16/21 ointment cephalexin 500 mg capsule 500 mg PO QID 7 days #28 cap s 10/16/21 amoxicillin 875 mg-potassium 1 tab PO BID 7 days #14 t abs 04/07/22 clavulanate 125 mg tablet cephalexin 500 mg capsule 500 mg PO Q8H #21 caps 09/05 doxycycline hyclate 100 mg capsule 100 mg PO BID #14 c aps 09/05/24 mupirocin 2 % topical ointment 1 appl topical BID #22 grams 09/08/24 (Centany) cephalexin 500 mg capsule 500 mg PO QID 10 days #40 ca ps 10/27/24 doxycycline hyclate 100 mg tablet 100 mg PO BID #20 ta bs 10/27/24 Allergies Allergy/AdvReac Type Severity Reaction Status Date / Time sulfamethoxazole (From Allergy Affected Verified 10/28/24 23:25 Bactrim) Kidneys trimethoprim (From Bactrim) Allergy Affected Verified 10/28/24 23:25 Kidneys Review of Systems 2 Review of Systems: Constitutional : No Weight loss, No Fever, No Chills, No Night Sweats, No Fatigue, No Malaise ENT/Mouth : No Hearing loss, No Ear Pain, No Nasal Congestion, No Sinus Pain, No Hoarseness, No sore throat, No Rhinorrhea, No Swallowing Difficulty Eyes: No Eye Pain, No Swelling, No Redness, No Foreign Body, No Discharge, No Vision Changes Cardiovascular : No Chest Pain, No SOB, No Dyspnea on Exertion, No Orthopnea, No Edema, No Palpitations Respiratory : No Cough, No Sputum, No Wheezing, No Smoke Exposure, No Dyspnea Gastrointestinal : No Nausea, No Vomiting, No Diarrhea, No Constipation, No abdominal Pain, No Hematochezia, No Melena Genitourinary : no irregular bleeding, No Dysuria, No Urinary Frequency, No Hematuria, No Urinary Incontinence, No Urgency, No Flank Pain, No Urinary Flow Changes, No Hesitancy Musculoskeletal : No joint pain, No Myalgias, No Joint Swelling Skin : Complaining of worsening cellulitis, he is taking cephalexin and doxycycline Neuro : No Weakness, No Numbness, No Paresthesias, No Loss of Consciousness, No Dizziness, No Headache Psych : No Anxiety/Panic, No Depression, No SI/HI/AH/VH, No Social Issues, Heme/Lymph: No Bruising, No Bleeding,No Lymphadenopathy Endocrine : No Polyuria, No Polydipsia, No Temperature Intolerance PMFSH Past Medical History Medical History AV block, 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 CKD (chronic kidney disease), stage III Peripheral arterial occlusive disease Arthritis GERD (gastroesophageal reflux disease) BPH (benign prostatic hyperplasia) Gout Diabetes CHF (congestive heart failure) HTN (hypertension) Elevated cholesterol CAD (coronary artery disease) Surgical History Hx of CABG Hx of angioplasty History of bilateral total hip arthroplasty History of carotid endarterectomy Hx of coronary angioplasty Social History Social History Are you a primary health care marketing manager to a significant other at home: No Do you presently have visiting nurse or other home services: No Patient Tobacco Use Status: Never used Tobacco Smoked in Last 30 Days: No Use of substances other than those prescribed or required for medical reasons: No Advance Directives: No Advance Directives Information Provided: Yes Physical Exam ED Exam Exam: Appearance: Alert. Oriented X3. No acute distress. Eyes: Pupils equal, round and reactive to light. ENT: Pharynx normal. Neck: Normal inspection. Neck supple. No lymph nodes noted. No crepitus CVS: Normal heart rate and rhythm. Pulses normal. Normal S1 and S2 Respiratory: No respiratory distress. Breath sounds normal. No Wheezing. No rales Abdomen: Soft and nontender. No rigidity. No distention. Skin: Skin warm and dry. Normal skin color. Normal skin turgor. See extremities below Extremities: No lower extremity edema. Patient has been diagnosed with cellulitis couple of days ago, patient states that even on antibiotics, the cellulitis keeps getting worse, now streaking up the right thigh. Now it is more painful. Neuro: Oriented X 3. No motor deficit. No sensory deficit. Moving all extremities. No slurred speech. CN 2 through 12 grossly intact Psych: calm, cooperative, normal affect Vital Signs: Vital Signs - 24 hr 10/28/24 23:21 10/29/24 04:24 Temperature 98.0 F 98.2 F Pulse Rate 60 60 Respiratory Rate 20 18 Blood Pressure 180/72 H 173/49 H Pulse Oximetry 97 97 Oxygen Delivery Method Room Air Room Air BMI result Body Mass Index 31.4 Course Course Course Narrative: Patient returns to the hospital complaining of worsening cellulitis. In his previous visit to the ED, admission was offered but patient declined. Patient is on p.o. antibiotics but the cellulitis keeps spreading, failed outpatient treatment Medical Decision Making Medical Decision Making [facility] Narrative: Patient's vitals stable, no hypotension or tachycardia, no fever Patient's white blood cell count remains elevated at 11.2, no other significant changes. Lactic acid and blood cultures pending Patient being given vancomycin with decreased dose due to history of chronic kidney disease, also given Zosyn and fluids. Patient is not septic, sepsis not suspected I discussed the patient with our hospitalist Dr. Ball, patient being admitted Patient agrees with plan Differential Diagnosis Differential Diagnoses: The differential diagnosis associated with the presentation includes Admission/Observation Consideration of admission/observation: Escalation of care including admission/observation considered Consult Healthcare Provider Management of the patient was discussed with: Hospitalist Lab Data [facility] Lab Attestation statement: I reviewed the patient's lab results. 10/28/24 23:41 10/28/24 23:41 Labs: Lab Results 10/28/24 10/28/24 Range/Units 23:40 23:41 WBC 11.2 H (4.8-10.8) X10*3/uL RBC 5.50 (4.60-5.80) X10*6/uL Hgb 11.5 L (14.0-18.0) g/dl Hct 35.9 L (42.0-52.0) % MCV 65.3 L (80.0-98.0) fL MCH 20.9 L (27.0-33.0) pg MCHC 32.0 (31.0-36.0) g/dl RDW 18.7 H (11.0-16.0) % Plt Count 99 L (160-400) X10*3/uL MPV Not Reportable Immature Gran % (Auto) 0.4 (0.0-0.4) % Neut % (Auto) 86.4 H (45-73) % Lymph % (Auto) 4.1 L (20-40) % [place] % (Auto) 8.2 (2-11) % Eos % (Auto) 0.7 (0-4) % Baso % (Auto) 0.2 (0-2) % Lymph # (Auto) 0.5 L (1.2-4.9) X10*3/uL [place] # (Auto) 0.9 (0.1-1.2) X10*3/uL Eos # (Auto) 0.1 (0.0-0.4) X10*3/uL Baso # (Auto) 0.0 (0.0-0.2) X10*3/uL Abs Immat Gran (auto) 0.05 H (0.00-0.03) X10*3/uL Absolute Neuts (auto) 9.7 H (2.0-8.3) x10*3/uL Absolute Nucleated RBC 0.000 (0.0-0.012) X10*3/uL Nucleated RBC % (auto) 0.0 (0.0-0.2) /100WBC Smear Tech's Comments VERIFIED Sodium 140 (135-145) mmol/L Potassium 4.7 (3.3-5.1) mmol/L Chloride 108 (96-108) mmol/L Carbon Dioxide 20 L (22-29) mmol/L Anion Gap 17 (12-20) BUN 86 H (9-16) mg/dL Creatinine 3.15 H (0.5-1.4) mg/dL Estim Creat Clear Calc 23.8 Estimated GFR 19 Random Glucose 203 H (60-115) mg/dL Calcium 8.8 (8.4-10.2) mg/dL Total Bilirubin 1.0 (0.0-1.0) mg/dL AST 32 (5-37) U/L ALT 22 (0-40) U/L Alkaline Phosphatase 73 (39-117) U/L Total Protein 6.8 (6.5-8.0) g/dL Albumin 4.2 (3.5-5.0) g/dL Lipase 110 H (8-78) U/L Influenza Type A (PCR) NEGATIVE (Negative) Influenza Type B (PCR) NEGATIVE (Negative) RSV RNA Qual (PCR) NEGATIVE (Negative) SARS-CoV-2 RNA (RT-PCR) NEGATIVE (Negative) Critical Care Time Critical Care Time Critical Care Time: Yes Total Critical Care Time: 60 Attestation: I have personally provided critical care time. Time includes review of lab data, radiology results, discussion with consultants, and monitoring for potential decompensation. Intervention performed as documented. Discharge Plan Discharge Clinical Impression: Cellulitis Patient Disposition: Admitted As Inpatient Print Language: Lao
--- NOTE | 2024-10-29 07:09 | PM.IMHP ---
History of Present Illness Date of Service: 10/29/24 Attending physician on admission: Jacob Augustine Chief Complaint: cellulitis Patient is a 78-year-old male with a past medical history significant for gout, hypertension, CAD, PID, type 2 diabetes, CKD4, pacemaker and class 1 obesity, who presented to the ED due to severe abdominal pain with nausea and vomiting starting 2 hours prior to arrival. Patient did not report abdominal pain to the ED provider but reported this triage. He focused on his cellulitis that he was seen for 2 days ago that has been worsening in failing outpatient treatment with streaking traveling up the right lower extremity to the posterior knee. He has been taking the doxycycline and cephalexin as prescribed. He reports after eating dinner yesterday he had sudden right upper quadrant pain with nausea and vomiting. The pain has been persistently a 10/10 up until recent, currently a 5/10, with associated vomiting while in the waiting room. He denies any blood in the stool, diarrhea or hematemesis. He denies any urinary symptoms including frequency, urgency or dysuria. Review of Systems Constitutional: Constitutional: Denies body ache(s), Denies chills, Denies fatigue, Denies fever(s) and Denies headache(s) Eyes: Eyes: Denies change in vision ENT: Denies headache(s), Denies nasal congestion, Denies nasal discharge and Denies sore throat Cardiovascular: Cardiovascular: Denies chest pain, Denies rapid heart rate, Denies leg edema, Denies lightheadedness and Denies dyspnea Respiratory: Respiratory: Denies chest congestion, Denies cough, Denies dyspnea and Denies wheezing Gastrointestinal: Gastrointestinal: Reports as per HPI Genitourinary: Genitourinary: Denies dysuria, Denies urinary frequency and Denies urinary urgency Musculoskeletal: Musculoskeletal: Denies myalgias Integumentary/Breasts: Skin/Breast: Reports as per HPI Neurologic: Denies confusion and Denies headache(s) Psychiatric: Psychiatric: Denies confusion Endocrine: Endocrine: Denies fatigue Hematologic/Lymphatic: Hematologic/Lymphatic: Denies easy bleeding and Denies easy bruising Allergic/Immunologic: Allergic/Immunologic: Denies wheezing [facility] Medical History AV block, 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 CKD (chronic kidney disease), stage III Peripheral arterial occlusive disease Arthritis GERD (gastroesophageal reflux disease) BPH (benign prostatic hyperplasia) Gout Diabetes CHF (congestive heart failure) HTN (hypertension) Elevated cholesterol CAD (coronary artery disease) Functional capacity: independent ambulation Surgical History Hx of CABG Hx of angioplasty History of bilateral total hip arthroplasty History of carotid endarterectomy Hx of coronary angioplasty Social History Are you a primary caregiver services home to a significant other at home: No Do you presently have visiting nurse or other home services: No Patient Tobacco Use Status: Never used Tobacco Smoked in Last 30 Days: No Use of substances other than those prescribed or required for medical reasons: No Advance Directives: No Advance Directives Information Provided: Yes Meds Allergies Allergy/AdvReac Type Severity Reaction Status Date / Time sulfamethoxazole (From Allergy Affected Verified 10/28/24 23:25 Bactrim) Kidneys trimethoprim (From Bactrim) Allergy Affected Verified 10/28/24 23:25 Kidneys Active Medications: Current Medications Acetaminophen (Acetaminophen 325 Mg Tablet) 975 mg PO Q6H PRN PRN Reason: Pain, Mild 1-3,fever,headache Calcium Carbonate (Calcium Carbonate 750 Mg Tab.Chew) 750 mg PO Q4H PRN PRN Reason: Heartburn Hydromorphone HCl (Hydromorphone Hcl 1 Mg/Ml Syringe) 0.5 mg IVPUSH Q4H PRN; Protocol PRN Reason: Pain, Severe (Pain Scale 7-10) Sodium Chloride (Ns) 1,000 mls @ 999 mls/hr IVCONT .Q1H1M ONE Stop: 10/29/24 07:37 Vancomycin HCl 1,500 mg/ (Sodium Chloride) 500 mls @ 333.333 mls/hr IV ONCE ONE Stop: 10/29/24 08:06 Lactated Ringer's (Lr) 1,000 mls @ 80 mls/hr IVCONT .[id number] EDDIE Magnesium Hydroxide (Milk Of Magnesia 30 Ml Oral.Susp) 30 ml PO DAILY PRN PRN Reason: Constipation Melatonin (Melatonin 3 Mg Tablet) 6 mg PO BEDTIME PRN PRN Reason: Insomnia Ondansetron HCl (Ondansetron Hcl 4 Mg/2 Ml Vial) 4 mg IVPUSH Q8H PRN PRN Reason: Nausea and Vomiting Oxycodone HCl (Oxycodone Hcl Immed Release 5 Mg Tablet) 5 mg PO Q6H PRN PRN Reason: Pain, Moderate(Pain Scale 4-6) Sodium Chloride (0.9 % Sodium Chloride Flush 3 Ml Syringe) 3 ml IVFLUSH QSHIFT [facility] Medications ?Medication ?Instructions ?Recorded ?Confirmed ?Last Taken ?Type allopurinol 100 mg tablet 100 mg PO DAILY 11/27/20 11/27/20 Unknown History amlodipine 5 mg tablet 5 mg PO DAILY 11/27/20 11/27/20 12/04/20 05:30 History atorvastatin 40 mg tablet 40 mg PO BEDTIME 11/27/20 11/27/20 Unknown History cilostazol 50 mg tablet 50 mg PO BID 11/27/20 11/27/20 12/04/20 05:30 History clopidogrel 75 mg tablet 75 mg PO DAILY 11/27/20 11/27/20 Unknown History doxazosin 4 mg tablet 4 mg PO BEDTIME 11/27/20 11/27/20 Unknown History furosemide 20 mg tablet 40 mg PO DAILY 11/27/20 11/27/20 Unknown History glipizide 5 mg tablet 5 mg PO DAILY 11/27/20 11/27/20 Unknown History isosorbide mononitrate 30 mg 30 mg PO DAILY 11/27/20 11/27/20 12/04/20 05:30 History tablet,extended release 24 hr pantoprazole 40 mg tablet,delayed 40 mg PO DAILY 11/27/20 11/27/20 12/04/20 05:30 History release Physical Exam Vital Signs and Narrative: Vital Signs: Last Vital Signs Temp 98.2 F 10/29/24 04:24 Pulse 60 10/29/24 04:24 Resp 18 10/29/24 04:24 BP 173/49 H 10/29/24 04:24 Pulse Ox 97 10/29/24 04:24 O2 Del Method Room Air 10/29/24 04:24 BMI result Body Mass Index 31.4 General: AOx3, appears slightly uncomfortable Resp: CTA bilaterally CVS: S1, S2, RRR GI: +BS, significant generalized abd pain pt reported RUQ but screamed in pain with light palpation of LLQ, mild distention Skin: Warm, dry. RLE with erythema extending up the posterior aspect of the leg. no increased warmth or drainage. Neuro: Cranial nerves II-XII grossly intact bilaterally. Motor grossly intact bilaterally Extremities: No pitting edema Psych: Appropriate affect Const: General: No confusion Orientation/consciousness: No confusion Neuro: General: No confusion Results Labs 10/28/24 23:41 10/28/24 23:41 Labs: Laboratory Results - last 24 hr 10/28/24 10/28/24 23:40 23:41 MCV 65.3 L MCH 20.9 L MCHC 32.0 RDW 18.7 H Plt Count 99 L MPV Not Reportable Immature Gran % (Auto) 0.4 Neut % (Auto) 86.4 H Lymph % (Auto) 4.1 L Steele % (Auto) 8.2 Eos % (Auto) 0.7 Baso % (Auto) 0.2 Lymph # (Auto) 0.5 L Steele # (Auto) 0.9 Eos # (Auto) 0.1 Baso # (Auto) 0.0 Abs Immat Gran (auto) 0.05 H Absolute Neuts (auto) 9.7 H Absolute Nucleated RBC 0.000 Nucleated RBC % (auto) 0.0 Smear Tech's Comments VERIFIED Anion Gap 17 Estim Creat Clear Calc 23.8 Estimated GFR 19 Random Glucose 203 H Calcium 8.8 Total Bilirubin 1.0 AST 32 ALT 22 Alkaline Phosphatase 73 Total Protein 6.8 Albumin 4.2 Lipase 110 H Influenza Type A (PCR) NEGATIVE Influenza Type B (PCR) NEGATIVE RSV RNA Qual (PCR) NEGATIVE SARS-CoV-2 RNA (RT-PCR) NEGATIVE Assessment and Plan (1) Cellulitis: Status: Acute (2) Abdominal pain: Status: Acute (3) Elevated lipase: Status: Acute (4) CKD (chronic kidney disease) stage 4, GFR 15-29 ml/min: Status: Acute (5) Class 1 obesity: Status: Acute Plan Patient is a 78-year-old male with a past medical history significant for gout, hypertension, CAD, PAD, type 2 diabetes, CKD4, pacemaker and class 1 obesity, who presented to the ED due to severe abdominal pain with nausea and vomiting starting 2 hours prior to arrival. cellulitis - WBC 11.2, no fever, tachycardia or tachypnea. no sepsis - failed outpt abx from recent ED visit 10/27 - Doppler ultrasound negative for DVT on 10/27 - started on vancomycin and Zosyn, continue - given 1 L LR - monitor CBC and BMP abd pain, elevated lipase ? Pancreatitis - significant generalized abdominal pain - LFTs normal - lipase elevated at 110 - BMP with bicarb of 20 - abdominopelvic CT ordered - check UA - NPO pending testing - LR 80/hr - monitor CBC and BMP CKD4 - cr 3.15, at baseline - followed by Dr Lerma - monitor cr chronic microcytic anemia - hemoglobin 11.5 hematocrit 35.9, MCV low - check iron panel - fecal occult blood test - no need for blood transfusion at this time - monitors CBC Hypertension - continue home meds Gout - continue allopurinol CAD/PAD - continue home meds when appropriate T2DM - sliding scale insulin - hold PO meds Class 1 obesity - BMI 31.4 - weight loss encouraged med rec pending full code VTE prophy: pneumoboots pending abd scan Patient with cellulitis with failed outpatient treatment complicated by abdominal pain with unclear etiology currently, possibly pancreatitis, requiring admission for at least 2 midnights stay for IV antibiotics and further evaluation Quality Stroke Does the patient have a stroke diagnosis?: No VTE Prior VTE?: No VTE Risk Level:: Medical - moderate - high VTE Device Contraindication: N/A - Device Ordered VTE Drug Contraindication: Treatment Not Indicated
--- NOTE | 2024-10-29 08:35 | PHA.MEDREC ---
Pharmacy Consult ? Medication Reconciliation Pharmacy has completed the medication reconciliation. Spoke with patient at bedside, he only new that he took a baby aspirin off the top of his head. Went through the list with him to confirm the rest.
--- NOTE | 2024-10-29 08:45 | PC.NURSE ---
Pt to CT at this time.
[2024-10-29] MEDS: vancomycin/NS 2,000 MG/500 ML PLAST..BAG 250 MG IV (09:14)
[2024-10-29 09:26] LABS: Glucose, Whole Blood 128 mg/dL (60-115)
--- NOTE | 2024-10-29 11:13 | PM.EVENT ---
Event Note Date of Service: 10/29/24 Event Note: Assume care of this pt in the morning. CT abdomen of pelvis showed concerns for acute calculous cholecystitis, as well as other incidental findings, including hepatosplenomegaly, diverticular disease, likely renal disease without hydronephrosis, atherosclerosis and CAD, and multilevel thoracolumbar spondylolysis. Pt currently denies any N/V, though still experiencing some RUQ pain. Abdominal exam relatively benign with some RUQ tenderness. Negative York's sign. Will keep pt NPO for now and contact General surgery for possible additional imaging or surgical procedure. The agree with the rest of plan as specified by admitting provider. Time Spent With Patient Time: Total time managing care of this patient today ____ minutes.
[2024-10-29 11:58] LABS: Glucose, Whole Blood 116 mg/dL (60-115)
[2024-10-29] MEDS: Lactated Ringers 1,000 ML 80 ML IVCONT (12:46)
[2024-10-29 12:52] LABS: Appearance Urine Clear; Glucose Urine UA 500 mg/dL (Negative); PH 5.5 (5.0-9.0); Specific Gravity - Urine 1.015 (1.005-1.025)
[2024-10-29 13:04] LABS: Creatinine Clr Calc Pharmacy 25.6; Estimated Glomerular Filt Rate 21; Iron 64 mcg/dL (45-160); Percent Iron Saturation 32 % (15-50); Total Iron Binding Capacity 202 mcg/dL (228-428); Unsaturated Iron Binding 138 ug/dL
--- NOTE | 2024-10-29 13:25 | PHA.PROG ---
Admission Date/Time: October 29, 2024 06:48 Indication: SSSI Weight in k.5 kg Serum Creatinine - Last 168 Hours 10/28/24 10/29/24 23:41 12:31 Creatinine 3.15 H 2.87 H Estimated CrCl and GFR - Last 168 Hours 10/28/24 10/29/24 23:41 12:31 Estim Creat Clear Calc 23.8 25.6 Estimated GFR 19 21 Vancomycin Loading Dose: 2,000 MG Current Vancomycin Dosing Regimen: 750mg q24h Vancomycin Monitoring using AUC goal of 400 - 600 range with trough as surrogate marker: 494, 17.4 Date and Time for next Vancomycin Level to be drawn: 10/30 @ 0700 Pharmacist Comments on Vancomycin Plan: Vancomycin dosing will take advantage of [employer] as a clinical decision support tool that uses Bayesian modeling to calculate individual patient's pharmacokinetic parameters and forecast the patient's drug concentration time course with the target goal AUC 24 range of 400 - 600 mg/L/hr.
--- NOTE | 2024-10-29 14:09 | PM.CNGS ---
History of Present Illness Consult details Consult date: 10/29/24 <Fidel Rankin PA-C - Last Filed: 10/29/24 15:03> Reason for consult: other (Right upper quadrant abdominal pain) <Fidel Rankin PA-C - Last Filed: 10/29/24 15:03> Narrative: 78 year old male with a history of stage IV CKD, s/p CABG 5, HTN, diabetes, PAD obesity seen in consult for possible acute cholecystitis. Patient also has cellulitis of right lower extremity. Patient states that last night began experiencing sharp right upper quadrant pain with associated nausea and vomiting after eating dinner. Has not had episodes like this before. Initially had elevated white count on presentation last night, this may be due to cellulitis. Liver enzymes within normal limits. Patient had CT this morning showing possible acute calculous cholecystitis numerous stones in the gallbladder, small amounts of pericolic fluid and no common bile duct dilation. He is currently only experiencing mild right upper quadrant pain but is comfortable at rest denies fevers or chills. He has been complaint is pain of the right lower extremity. He denies any abdominal surgeries in the past. Allergies to Bactrim <Fidel Rankin PA-C - Last Filed: 10/29/24 15:03> [facility] Past Medical History Medical History: Medical History AV block, 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 CKD (chronic kidney disease), stage III Peripheral arterial occlusive disease Arthritis GERD (gastroesophageal reflux disease) BPH (benign prostatic hyperplasia) Gout Diabetes CHF (congestive heart failure) HTN (hypertension) Elevated cholesterol CAD (coronary artery disease) <Fidel Rankin PA-C - Last Filed: 10/29/24 15:03> Surgical History Surgical History: Surgical History Hx of CABG Hx of angioplasty History of bilateral total hip arthroplasty History of carotid endarterectomy Hx of coronary angioplasty <TRISH Noriega Last Filed: 10/29/24 15:03> Social History Social History: Social History Household Members: Spouse and Other Household Members Other:: MIL Housing: House Are you a primary respiratory care instructor to a significant other at home: No Do you presently have visiting nurse or other home services: No Patient Tobacco Use Status: Never used Tobacco <Fidel Rankin PA-C - Last Filed: 10/29/24 15:03> Meds Allergies/Adverse reactions: Allergies Allergy/AdvReac Type Severity Reaction Status Date / Time sulfamethoxazole (From Allergy Affected Verified 10/28/24 23:25 Bactrim) Kidneys trimethoprim (From Bactrim) Allergy Affected Verified 10/28/24 23:25 Kidneys <Fidel Rankin PA-C - Last Filed: 10/29/24 15:03> Active Medications: Current Medications Acetaminophen (Acetaminophen 325 Mg Tablet) 975 mg PO Q6H PRN PRN Reason: Pain, Mild 1-3,fever,headache Calcium Carbonate (Calcium Carbonate 750 Mg Tab.Chew) 750 mg PO Q4H PRN PRN Reason: Heartburn Dextrose (Dextrose 50 % 25 Gm/50 Ml Syringe) 25 gm IVPUSH Q15M PRN; Protocol PRN Reason: per Hypoglycemia Standing Ord. Glucose (Glucose Gel 15 Gm Gel..Gram.) 15 gm PO Q15M PRN; Protocol PRN Reason: per Hypoglycemia Standing Ord. Hydromorphone HCl (Hydromorphone Hcl 1 Mg/Ml Syringe) 0.5 mg IVPUSH Q4H PRN; Protocol PRN Reason: Pain, Severe (Pain Scale 7-10) Lactated Ringer's (Lr) 1,000 mls @ 80 mls/hr IVCONT .[id number] [facility] Last Admin: 10/29/24 12:46 Dose: 80 mls/hr Piperacillin Sod/Tazobactam (Sod 2.25 gm/ Sodium Chloride) 50 mls @ 100 mls/hr IV Q6H [facility] Vancomycin HCl 750 mg/ Sodium (Chloride) 265 mls @ 265 mls/hr IV Q24H [facility] Insulin Human Lispro (Insulin Lispro 100 Unit/Ml 3 Ml Vial) 0 unit SUBCUT Q6H [facility]; Protocol Last Admin: 10/29/24 09:23 Dose: Not Given Magnesium Hydroxide (Milk Of Magnesia 30 Ml Oral.Susp) 30 ml PO DAILY PRN PRN Reason: Constipation Melatonin (Melatonin 3 Mg Tablet) 6 mg PO BEDTIME PRN PRN Reason: Insomnia Ondansetron HCl (Ondansetron Hcl 4 Mg/2 Ml Vial) 4 mg IVPUSH Q8H PRN PRN Reason: Nausea and Vomiting Oxycodone HCl (Oxycodone Hcl Immed Release 5 Mg Tablet) 5 mg PO Q6H PRN PRN Reason: Pain, Moderate(Pain Scale 4-6) Pharmacy Consult (Consult Rx Vancomycin Dosing) 1 each MISCELLANE DAILY PRN PRN Reason: Consult order Sodium Chloride (0.9 % Sodium Chloride Flush 3 Ml Syringe) [facility] Last Admin: 10/29/24 08:49 Dose: Not Given <Fidel Rankin PA-C - Last Filed: 10/29/24 15:03> Home medications: Home Medications ?Medication ?Instructions ?Recorded ?Confirmed ?Last Taken ?Type allopurinol 100 mg tablet 100 mg PO DAILY 11/27/20 10/29/24 10/28/24 History amlodipine 5 mg tablet 5 mg PO DAILY 11/27/20 10/29/24 10/28/24 History atorvastatin 40 mg tablet 80 mg PO BEDTIME 11/27/20 10/29/24 10/28/24 History doxazosin 4 mg tablet 4 mg PO BEDTIME 11/27/20 10/29/24 10/28/24 History furosemide 20 mg tablet 40 mg PO BID 11/27/20 10/29/24 10/28/24 History glipizide 5 mg tablet 5 mg PO DAILY 11/27/20 10/29/24 10/28/24 History aspirin 81 mg tablet 81 mg PO DAILY 10/29/24 10/29/24 10/28/24 History dapagliflozin propanediol 10 mg 10 mg PO DAILY 10/29/24 10/29/24 10/28/24 History tablet (Farxiga) hydralazine 100 mg tablet 100 mg PO BID 10/29/24 10/29/24 10/28/24 History <Fidel Rankin PA-C - Last Filed: 10/29/24 15:03> Physical Exam Vital Signs: Vital Signs: Last Vital Signs Temp 97.5 F 10/29/24 12:09 Pulse 60 10/29/24 12:09 Resp 16 10/29/24 12:09 BP 160/60 H 10/29/24 12:49 Pulse Ox 96 10/29/24 12:09 O2 Del Method Room Air 10/29/24 12:09 BMI result Body Mass Index 30.0 <TRISH Noriega Last Filed: 10/29/24 15:03> Const: General: comfortable and no acute distress <TRISH Noriega Last Filed: 10/29/24 15:03> Orientation/consciousness: patient oriented x3 <TRISH Noriega Last Filed: 10/29/24 15:03> Resp: Effort & Inspection: normal respiratory effort and able to speak in complete sentences <Fidel Rankin TRISH Duron Last Filed: 10/29/24 15:03> GI: Inspection: No distended <TRISH Noriega Last Filed: 10/29/24 15:03> Palpation (GI): Soft to palpation, not firm, Tenderness to palpation present (GI) in the RUQ, no guarding and not rigid <Fidel Rankin TRISH Duron Last Filed: 10/29/24 15:03> Neuro: General: patient oriented x3 <Fidel Rankin TRISH Duron Last Filed: 10/29/24 15:03> Extrem: Other: Significant cellulitis of distal right lower extremity extending up to the posterior knee. Very tender to the touch <TRISH Noriega Last Filed: 10/29/24 15:03> Results Labs Result diagrams: 10/28/24 23:41 10/29/24 12:31 <TRISH Noriega Last Filed: 10/29/24 15:03> Labs: Abnormal lab results 10/28/24 10/29/24 10/29/24 Range/Units 23:41 09:23 11:53 WBC 11.2 H (4.8-10.8) X10*3/uL Hgb 11.5 L (14.0-18.0) g/dl Hct 35.9 L (42.0-52.0) % MCV 65.3 L (80.0-98.0) fL MCH 20.9 L (27.0-33.0) pg RDW 18.7 H (11.0-16.0) % Plt Count 99 L (160-400) X10*3/uL Neut % (Auto) 86.4 H (45-73) % Lymph % (Auto) 4.1 L (20-40) % Lymph # (Auto) 0.5 L (1.2-4.9) X10*3/uL Abs Immat Gran (auto) 0.05 H (0.00-0.03) X10*3/uL Absolute Neuts (auto) 9.7 H (2.0-8.3) x10*3/uL Carbon Dioxide 20 L (22-29) mmol/L BUN 86 H (9-16) mg/dL Creatinine 3.15 H (0.5-1.4) mg/dL POC Glucose 128 H 116 H (60-115) mg/dL Random Glucose 203 H (60-115) mg/dL TIBC (228-428) mcg/dL Lipase 110 H (8-78) U/L Urine Glucose (UA) (Negative) mg/dL 10/29/24 10/29/24 Range/Units 12:31 Unknown WBC (4.8-10.8) X10*3/uL Hgb (14.0-18.0) g/dl Hct (42.0-52.0) % MCV (80.0-98.0) fL MCH (27.0-33.0) pg RDW (11.0-16.0) % Plt Count (160-400) X10*3/uL Neut % (Auto) (45-73) % Lymph % (Auto) (20-40) % Lymph # (Auto) (1.2-4.9) X10*3/uL Abs Immat Gran (auto) (0.00-0.03) X10*3/uL Absolute Neuts (auto) (2.0-8.3) x10*3/uL Carbon Dioxide (22-29) mmol/L BUN (9-16) mg/dL Creatinine 2.87 H (0.5-1.4) mg/dL POC Glucose (60-115) mg/dL Random Glucose (60-115) mg/dL TIBC 202 L (228-428) mcg/dL Lipase (8-78) U/L Urine Glucose (UA) 500 H (Negative) mg/dL Short CBC 10/28/24 Range/Units 23:41 WBC 11.2 H (4.8-10.8) X10*3/uL Hgb 11.5 L (14.0-18.0) g/dl Hct 35.9 L (42.0-52.0) % Plt Count 99 L (160-400) X10*3/uL BMP 10/28/24 10/29/24 23:41 12:31 Sodium 140 Potassium 4.7 Chloride 108 Carbon Dioxide 20 L BUN 86 H Creatinine 3.15 H 2.87 H Calcium 8.8 Liver Function 10/28/24 Range/Units 23:41 Total Bilirubin 1.0 (0.0-1.0) mg/dL AST 32 (5-37) U/L ALT 22 (0-40) U/L Alkaline Phosphatase 73 (39-117) U/L Albumin 4.2 (3.5-5.0) g/dL Urine 10/29/24 Range/Units Unknown Urine Color Yellow Urine Appearance Clear Urine pH 5.5 (5.0-9.0) Ur Specific [place] 1.015 (1.005-1.025) Urine Protein Trace (Neg-Trace) mg/dL Urine Glucose (UA) 500 H (Negative) mg/dL All other labs normal. <Fidel Rankin PA-C - Last Filed: 10/29/24 15:03> Assessment and Plan (1) Abdominal pain: Qualifiers: Abdominal location: right upper quadrant Qualified Code(s): R10.11 - Right upper quadrant pain <Fidel Rankin PA-C - Last Filed: 10/29/24 15:03> Status: Acute <Fidel Rankin PA-C - Last Filed: 10/29/24 15:03> 78 year old male with a history of stage IV CKD, s/p CABG 5, HTN, diabetes, PAD obesity seen in consult for possible acute cholecystitis. Patient also has cellulitis of right lower extremity, currently being treated with IV antibiotics. Patient states that last night began experiencing sharp right upper quadrant pain with associated nausea and vomiting after eating dinner. Currently denying nausea or vomiting, he is having minimal pain, only pain to palpation of the right upper quadrant. CT showing multiple gallstones, possible cholecystitis. His clinical picture history seemed to be more like biliary colic given the resolution of his symptoms. Liver enzymes are within normal limits, there was leukocytosis, but this could be due to the cellulitis the right lower extremity. We will plan to continue to monitor this patient for acute worsening, however he is already on antibiotics for cellulitis so we will be empirically covered for cholecystitis if this is the case. He is okay to have clear liquids for now, we discussed this with him that if he becomes symptomatic we will have to decelerate his diet and re-evaluate for cholecystitis. We discussed this plan with the patient who agrees this is a good plan for him. Also discussed with RENE Skinner who will continue management of cellulitis. We will continue to follow up Clear liquids Continue antibiotics If recurrent right upper quadrant pain, we will reevaluate for possible cholecystectomy if clinically appropriate <Fidel Rankin PA-C - Last Filed: 10/29/24 15:03> 78 year old male with a history of stage IV CKD, s/p CABG 5, HTN, diabetes, PAD obesity seen in consult for possible acute cholecystitis. Patient also has cellulitis of right lower extremity, currently being treated with IV antibiotics. Patient states that last night began experiencing sharp right upper quadrant pain with associated nausea and vomiting after eating dinner. Currently denying nausea or vomiting, he is having minimal pain, only pain to palpation of the right upper quadrant. CT showing multiple gallstones, possible cholecystitis. His clinical picture history seemed to be more like biliary colic given the resolution of his symptoms. Liver enzymes are within normal limits, there was leukocytosis, but this could be due to the cellulitis the right lower extremity. We will plan to continue to monitor this patient for acute worsening, however he is already on antibiotics for cellulitis so we will be empirically covered for cholecystitis if this is the case. He is okay to have clear liquids for now, we discussed this with him that if he becomes symptomatic we will have to decelerate his diet and re-evaluate for cholecystitis. We discussed this plan with the patient who agrees this is a good plan for him. Also discussed with RENE Skinner who will continue management of cellulitis. We will continue to follow up Clear liquids Continue antibiotics If recurrent right upper quadrant pain, we will reevaluate for possible cholecystectomy if clinically appropriate Patient is a 78-year-old male with multiple medical issues as listed above who came in for cellulitis but then with further questioning admitted that he had some abdominal pain and workup by CT scan showed some changes that could be potentially early cholecystitis. He has definite gallstones so most likely could have also had an episode of biliary colic with some mild cholecystitis. At this point in time he is hungry his abdomen exam is relatively benign. He will be treated with IV converted to eventual p.o. antibiotics for certain time. Course for his cellulitis and I think that if he did have a mild really cholecystitis then this could be a good treatment plan for him. At this point I do not see any evidence on his physical exam or testing which would require urgent surgical operation for laparoscopic cholecystectomy. As a result would increase his diet and see his response. If he continues to have recurrence of the abdominal pain then we can stop convert him to NPO and then discuss the need to carry out laparoscopic cholecystectomy. He understands and agrees with the above plan as he would like to undergo more of a conservative approach. <Elaine Nobles MD - Last Filed: 10/29/24 21:34> Procedures Date of Service Date of Service: 10/29/24 <Fidel Rankin PA-C - Last Filed: 10/29/24 15:03> 10/29/24 <Elaine Nobles MD - Last Filed: 10/29/24 21:34>
[2024-10-29] MEDS: 0.9 % Sodium Chloride Flush 3 ML SYRINGE IVFLUSH (15:33)
[2024-10-29 16:31] LABS: Glucose, Whole Blood 153 mg/dL (60-115)
--- NOTE | 2024-10-29 16:38 | PC.NURSE ---
RENE Mohr made aware pt BP continues to be elevated, per RENE ok to give scheduled Hydralazine early
--- NOTE | 2024-10-29 18:25 | HO.SKINPHOTO ---
Location right leg cellulitis, warm, red, edema noted, outlined with skin marker. Redness extends down to posterior heel. Small open area to casarez, PA aware.
[2024-10-29 20:19] LABS: Glucose, Whole Blood 92 mg/dL (60-115)
[2024-10-30] MEDS: Lactated Ringers 1,000 ML 80 ML IVCONT (01:15)
[2024-10-30 03:06] VITALS: BP 165/72; PULSE 59; RESP 20; TEMP 36.2; O2SAT 96
[2024-10-30 06:59] LABS: MANUAL DIFF FLAG NO
[2024-10-30 07:02] LABS: Hematocrit 34.2 % (42.0-52.0); Hemoglobin 10.8 g/dl (14.0-18.0); Imm Gran Abs Auto 0.04 X10*3/uL (0.00-0.03); Imm Gran Pct Auto 0.6 % (0.0-0.4); Lymphocytes Absolute Auto 0.5 X10*3/uL (1.2-4.9); Mean Corpuscular HGB Conc 31.6 g/dl (31.0-36.0); Mean Corpuscular Hemoglobin 20.9 pg (27.0-33.0); Mean Corpuscular Volume 66.3 fL (80.0-98.0); NRBC Abs Auto 0.000 X10*3/uL (0.0-0.012); NRBC Pct Auto 0.0 /100WBC (0.0-0.2); Platelet Count 102 X10*3/uL (160-400); Red Blood Count 5.16 X10*6/uL (4.60-5.80); White Blood Count 7.0 X10*3/uL (4.8-10.8)
[2024-10-30 07:18] LABS: Anion Gap 19 (12-20); Blood Urea Nitrogen 63 mg/dL (9-16); Calcium 8.8 mg/dL (8.4-10.2); Carbon Dioxide 25 mmol/L (22-29); Chloride 104 mmol/L (96-108); Creatinine Clr Calc Pharmacy 26.1; Estimated Glomerular Filt Rate 22; Potassium 4.5 mmol/L (3.3-5.1); Sodium 143 mmol/L (135-145)
[2024-10-30 07:31] LABS: Glucose, Whole Blood 128 mg/dL (60-115)
--- NOTE | 2024-10-30 07:31 | HE.PHANOTE ---
Vancomycin Dosing Vancomycin level 14 today after load dose. Will continue with vancomycin 750 mg Q24H. Predict AUC 501 with a trough of 17.4. Next level 11/01 @ 0700. Izabela Little PharmD
[2024-10-30 07:51] VITALS: BP 182/80; PULSE 59; RESP 12; TEMP 36.1; O2SAT 94
[2024-10-30 09:32] VITALS: BP 156/66
[2024-10-30 11:31] LABS: OBS Int Ctl Valid YES; OBS1 NEGATIVE (NEGATIVE)
[2024-10-30 11:34] LABS: Glucose, Whole Blood 57 mg/dL (60-115)
[2024-10-30 11:52] LABS: Glucose, Whole Blood 99 mg/dL (60-115)
--- NOTE | 2024-10-30 14:39 | MHC.CM.PN ---
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
[2024-10-30] MEDS: 0.9 % Sodium Chloride Flush 3 ML SYRINGE IVFLUSH ×2 (15:16→21:44)
--- NOTE | 2024-10-30 15:23 | P.PNGS_ITS ---
Subjective Subjective Date of Service: 10/30/24 Interval history: Patient is feeling great denies any abdominal pain is able to tolerate food fine no nausea no vomiting. Cellulitis on the leg is looking better. Physical Exam 2 Vital Signs: Vital Signs: Last Vital Signs Temp 97.0 F 10/30/24 07:51 Pulse 59 10/30/24 07:51 Resp 12 10/30/24 07:51 BP 156/66 H 10/30/24 09:32 Pulse Ox 94 10/30/24 07:51 O2 Del Method Room Air 10/30/24 07:51 BMI result Body Mass Index 30.0 GI: Other: Abdomen is soft nondistended nontender Skin: Other: Right lower leg skin soft tissue feels better less discoloration with erythema and edema. Objective Data Active Medications Acetaminophen (Acetaminophen 325 Mg Tablet) 975 mg PO Q6H PRN PRN Reason: Pain, Mild 1-3,fever,headache Allopurinol (Allopurinol 100 Mg Tablet) 100 mg PO DAILY [facility] Last Admin: 10/30/24 07:31 Dose: 100 mg Documented By: RJ Amlodipine Besylate (Amlodipine Besylate 5 Mg Tablet) 5 mg PO DAILY [facility]; Protocol Last Admin: 10/30/24 07:31 Dose: 5 mg Documented By: RJ Aspirin (Aspirin 81 Mg Tab.Chew) 81 mg PO DAILY [facility] Last Admin: 10/30/24 07:31 Dose: 81 mg Documented By: RJ Atorvastatin Calcium (Atorvastatin Calcium 80 Mg Tablet) 80 mg PO BEDTIME [facility] Last Admin: 10/29/24 21:30 Dose: 80 mg Documented By: ESTHER Calcium Carbonate (Calcium Carbonate 750 Mg Tab.Chew) 750 mg PO Q4H PRN PRN Reason: Heartburn Dextrose (Dextrose 50 % 25 Gm/50 Ml Syringe) 25 gm IVPUSH Q15M PRN; Protocol PRN Reason: per Hypoglycemia Standing Ord. Doxazosin Mesylate (Doxazosin Mesylate 2 Mg Tablet) 4 mg PO BEDTIME [facility]; Protocol Last Admin: 10/29/24 21:27 Dose: 4 mg Documented By: ESTHER Furosemide (Furosemide 40 Mg Tablet) 40 mg PO BID [facility]; Protocol Last Admin: 10/30/24 07:31 Dose: 40 mg Documented By: RJ Glipizide (Glipizide 5 Mg Tablet) 5 mg PO DAILY [facility] Last Admin: 10/30/24 07:32 Dose: 5 mg Documented By: RJ Glucose (Glucose Gel 15 Gm Gel..Gram.) 15 gm PO Q15M PRN; Protocol PRN Reason: per Hypoglycemia Standing Ord. Hydralazine HCl (Hydralazine Hcl 50 Mg Tablet) 100 mg PO BID [facility]; Protocol Last Admin: 10/30/24 07:31 Dose: 100 mg Documented By: RJ Hydromorphone HCl (Hydromorphone Hcl 1 Mg/Ml Syringe) 0.5 mg IVPUSH Q4H PRN; Protocol PRN Reason: Pain, Severe (Pain Scale 7-10) Piperacillin Sod/Tazobactam (Sod 2.25 gm/ Sodium Chloride) 50 mls @ 100 mls/hr IV Q6H [facility] Last Admin: 10/30/24 15:15 Dose: 100 mls/hr Documented By: RJ Vancomycin HCl 750 mg/ Sodium (Chloride) 265 mls @ 265 mls/hr IV Q24H [facility] Last Infusion: 10/30/24 10:05 Dose: Infused Documented By: RJ Insulin Human Lispro (Insulin Lispro 100 Unit/Ml 3 Ml Vial) 0 unit SUBCUT QIDACHS [facility]; Protocol Last Admin: 10/30/24 11:49 Dose: Not Given Documented By: RJ Non-Admin Reason: No Insulin Coverage Comments: per protocol 30g carbs given. notified baumen. recheck in 15min Magnesium Hydroxide (Milk Of Magnesia 30 Ml Oral.Susp) 30 ml PO DAILY PRN PRN Reason: Constipation Melatonin (Melatonin 3 Mg Tablet) 6 mg PO BEDTIME PRN PRN Reason: Insomnia Ondansetron HCl (Ondansetron Hcl 4 Mg/2 Ml Vial) 4 mg IVPUSH Q8H PRN PRN Reason: Nausea and Vomiting Oxycodone HCl (Oxycodone Hcl Immed Release 5 Mg Tablet) 5 mg PO Q6H PRN PRN Reason: Pain, Moderate(Pain Scale 4-6) Pharmacy Consult (Consult Rx Vancomycin Dosing) 1 each MISCELLANE DAILY PRN PRN Reason: Consult order Sodium Chloride (0.9 % Sodium Chloride Flush 3 Ml Syringe) [facility] Last Admin: 10/30/24 15:16 Dose: 3 ml Documented By: RJ Labs 10/30/24 06:51 10/30/24 06:51 Labs: Laboratory Results - last 24 hr 10/29/24 10/29/24 10/30/24 16:27 20:15 06:51 MCV 66.3 L MCH 20.9 L MCHC 31.6 RDW 18.8 H Plt Count 102 L MPV TNP Immature Gran % (Auto) 0.6 H Neut % (Auto) 80.1 H Lymph % (Auto) 7.7 L [place] % (Auto) 8.8 Eos % (Auto) 2.4 Baso % (Auto) 0.4 Lymph # (Auto) 0.5 L [place] # (Auto) 0.6 Eos # (Auto) 0.2 Baso # (Auto) 0.0 Abs Immat Gran (auto) 0.04 H Absolute Neuts (auto) 5.6 Absolute Nucleated RBC 0.000 Nucleated RBC % (auto) 0.0 Anion Gap 19 Estim Creat Clear Calc 26.1 Estimated GFR 22 POC Glucose 153 H 92 Random Glucose 139 H Calcium 8.8 Stool Occult Blood Random Vancomycin 14.1 L 10/30/24 10/30/24 10/30/24 07:25 11:24 11:30 MCV MCH MCHC RDW Plt Count MPV Immature Gran % (Auto) Neut % (Auto) Lymph % (Auto) [place] % (Auto) Eos % (Auto) Baso % (Auto) Lymph # (Auto) [place] # (Auto) Eos # (Auto) Baso # (Auto) Abs Immat Gran (auto) Absolute Neuts (auto) Absolute Nucleated RBC Nucleated RBC % (auto) Anion Gap Estim Creat Clear Calc Estimated GFR POC Glucose 128 H 57 L* Random Glucose Calcium Stool Occult Blood NEGATIVE Random Vancomycin 10/30/24 11:48 MCV MCH MCHC RDW Plt Count MPV Immature Gran % (Auto) Neut % (Auto) Lymph % (Auto) [place] % (Auto) Eos % (Auto) Baso % (Auto) Lymph # (Auto) [place] # (Auto) Eos # (Auto) Baso # (Auto) Abs Immat Gran (auto) Absolute Neuts (auto) Absolute Nucleated RBC Nucleated RBC % (auto) Anion Gap Estim Creat Clear Calc Estimated GFR POC Glucose 99 Random Glucose Calcium Stool Occult Blood Random Vancomycin Microbiology Microbiology Results: Microbiology 10/29/24 07:29 Blood Culture - Preliminary Blood - Venous No growth after 24 hours. 10/29/24 07:26 Blood Culture - Preliminary Blood - Venous No growth after 24 hours. Procedures Date of Service Date of Service: 10/30/24 Progress Note: A&P Assessment and plan (1) Abdominal pain: Status: Acute Plan 78-year-old male with a abdominal pain maybe secondary to some biliary colic mild cholecystitis improving with conservative care. He is getting antibiotics for the leg and responding well. Would advocate for him to continue with eating and drinking low-fat diet as tolerated and then following up as an outpatient at the surgical department and maybe discuss setting up an elective laparoscopic cholecystectomy. In the meantime his treatment for outpatient antibiotics should cover any mild cholecystitis as well and would recommend at least a 7 day course of treatment from the start of his antibiotics. Patient understands in his does to and agrees with the above plan. Time Spent With Patient Time: Total time managing care of this patient today ____ minutes. Quality Stroke Does the patient have a stroke diagnosis?: No VTE Prior VTE?: No VTE Risk Level:: Medical - moderate - high VTE Device Contraindication: N/A - Device Ordered VTE Drug Contraindication: Treatment Not Indicated
[2024-10-30 16:06] VITALS: BP 164/71; PULSE 60; RESP 18; TEMP 36.3; O2SAT 97
[2024-10-30 16:39] LABS: Glucose, Whole Blood 96 mg/dL (60-115)
--- NOTE | 2024-10-30 17:06 | P.PNIM_ITS ---
Subjective Subjective Date of Service: 10/30/24 Interval History: Feeling better, abdominal pain resolved No acute events overnight Denies N/V Tolerated dinner last night and breakfast this morning without any issues Denies fever or chills Review of Systems Review of Systems: Yes all other systems are reviewed and are negative Physical Exam 2 Exam: Exam: General: AOx3, no acute distress Resp: CTA bilaterally CVS: S1, S2, RRR GI: +BS, NT, no distention Skin: Warm, dry Neuro: Cranial nerves II-XII grossly intact bilaterally. Motor grossly intact bilaterally Extremities: Right lower extremity with swelling, warmth, erythema, and tenderness. Minimal improvement from day prior. As pictured below. Psych: Appropriate affect Vital Signs: Vital Signs: Last Vital Signs Temp 97.3 F 10/30/24 16:06 Pulse 60 10/30/24 16:06 Resp 18 10/30/24 16:06 BP 164/71 H 10/30/24 16:06 Pulse Ox 97 10/30/24 16:06 O2 Del Method Room Air 10/30/24 16:06 BMI result Body Mass Index 30.0 Objective Data Active Medications Acetaminophen (Acetaminophen 325 Mg Tablet) 975 mg PO Q6H PRN PRN Reason: Pain, Mild 1-3,fever,headache Allopurinol (Allopurinol 100 Mg Tablet) 100 mg PO DAILY [facility] Last Admin: 10/30/24 07:31 Dose: 100 mg Documented By: RJ Amlodipine Besylate (Amlodipine Besylate 5 Mg Tablet) 5 mg PO DAILY [facility]; Protocol Last Admin: 10/30/24 07:31 Dose: 5 mg Documented By: RJ Aspirin (Aspirin 81 Mg Tab.Chew) 81 mg PO DAILY [facility] Last Admin: 10/30/24 07:31 Dose: 81 mg Documented By: RJ Atorvastatin Calcium (Atorvastatin Calcium 80 Mg Tablet) 80 mg PO BEDTIME [facility] Last Admin: 10/29/24 21:30 Dose: 80 mg Documented By: ESTHER Calcium Carbonate (Calcium Carbonate 750 Mg Tab.Chew) 750 mg PO Q4H PRN PRN Reason: Heartburn Dextrose (Dextrose 50 % 25 Gm/50 Ml Syringe) 25 gm IVPUSH Q15M PRN; Protocol PRN Reason: per Hypoglycemia Standing Ord. Doxazosin Mesylate (Doxazosin Mesylate 2 Mg Tablet) 4 mg PO BEDTIME [facility]; Protocol Last Admin: 10/29/24 21:27 Dose: 4 mg Documented By: ESTHER Furosemide (Furosemide 40 Mg Tablet) 40 mg PO BID [facility]; Protocol Last Admin: 10/30/24 07:31 Dose: 40 mg Documented By: RJ Glipizide (Glipizide 5 Mg Tablet) 5 mg PO DAILY [facility] Last Admin: 10/30/24 07:32 Dose: 5 mg Documented By: RJ Glucose (Glucose Gel 15 Gm Gel..Gram.) 15 gm PO Q15M PRN; Protocol PRN Reason: per Hypoglycemia Standing Ord. Hydralazine HCl (Hydralazine Hcl 50 Mg Tablet) 100 mg PO BID [facility]; Protocol Last Admin: 10/30/24 07:31 Dose: 100 mg Documented By: RJ Hydromorphone HCl (Hydromorphone Hcl 1 Mg/Ml Syringe) 0.5 mg IVPUSH Q4H PRN; Protocol PRN Reason: Pain, Severe (Pain Scale 7-10) Piperacillin Sod/Tazobactam (Sod 2.25 gm/ Sodium Chloride) 50 mls @ 100 mls/hr IV Q6H [facility] Last Infusion: 10/30/24 15:57 Dose: Infused Documented By: RJ Vancomycin HCl 750 mg/ Sodium (Chloride) 265 mls @ 265 mls/hr IV Q24H [facility] Last Infusion: 10/30/24 10:05 Dose: Infused Documented By: RJ Insulin Human Lispro (Insulin Lispro 100 Unit/Ml 3 Ml Vial) 0 unit SUBCUT QIDACHS [facility]; Protocol Last Admin: 10/30/24 16:36 Dose: Not Given Documented By: RJ Non-Admin Reason: No Insulin Coverage Magnesium Hydroxide (Milk Of Magnesia 30 Ml Oral.Susp) 30 ml PO DAILY PRN PRN Reason: Constipation Melatonin (Melatonin 3 Mg Tablet) 6 mg PO BEDTIME PRN PRN Reason: Insomnia Ondansetron HCl (Ondansetron Hcl 4 Mg/2 Ml Vial) 4 mg IVPUSH Q8H PRN PRN Reason: Nausea and Vomiting Oxycodone HCl (Oxycodone Hcl Immed Release 5 Mg Tablet) 5 mg PO Q6H PRN PRN Reason: Pain, Moderate(Pain Scale 4-6) Pharmacy Consult (Consult Rx Vancomycin Dosing) 1 each MISCELLANE DAILY PRN PRN Reason: Consult order Sodium Chloride (0.9 % Sodium Chloride Flush 3 Ml Syringe) 3 ml IVFLUSH QSHIFT [facility] Last Admin: 10/30/24 15:16 Dose: 3 ml Documented By: RJ Labs 10/30/24 06:51 10/30/24 06:51 Labs: Laboratory Results - last 24 hr 10/29/24 10/30/24 10/30/24 20:15 06:51 07:25 MCV 66.3 L MCH 20.9 L MCHC 31.6 RDW 18.8 H Plt Count 102 L MPV TNP Immature Gran % (Auto) 0.6 H Neut % (Auto) 80.1 H Lymph % (Auto) 7.7 L [place] % (Auto) 8.8 Eos % (Auto) 2.4 Baso % (Auto) 0.4 Lymph # (Auto) 0.5 L [place] # (Auto) 0.6 Eos # (Auto) 0.2 Baso # (Auto) 0.0 Abs Immat Gran (auto) 0.04 H Absolute Neuts (auto) 5.6 Absolute Nucleated RBC 0.000 Nucleated RBC % (auto) 0.0 Anion Gap 19 Estim Creat Clear Calc 26.1 Estimated GFR 22 POC Glucose 92 128 H Random Glucose 139 H Calcium 8.8 Stool Occult Blood Random Vancomycin 14.1 L 10/30/24 10/30/24 10/30/24 11:24 11:30 11:48 MCV MCH MCHC RDW Plt Count MPV Immature Gran % (Auto) Neut % (Auto) Lymph % (Auto) [place] % (Auto) Eos % (Auto) Baso % (Auto) Lymph # (Auto) [place] # (Auto) Eos # (Auto) Baso # (Auto) Abs Immat Gran (auto) Absolute Neuts (auto) Absolute Nucleated RBC Nucleated RBC % (auto) Anion Gap Estim Creat Clear Calc Estimated GFR POC Glucose 57 L* 99 Random Glucose Calcium Stool Occult Blood NEGATIVE Random Vancomycin 10/30/24 16:35 MCV MCH MCHC RDW Plt Count MPV Immature Gran % (Auto) Neut % (Auto) Lymph % (Auto) [place] % (Auto) Eos % (Auto) Baso % (Auto) Lymph # (Auto) [place] # (Auto) Eos # (Auto) Baso # (Auto) Abs Immat Gran (auto) Absolute Neuts (auto) Absolute Nucleated RBC Nucleated RBC % (auto) Anion Gap Estim Creat Clear Calc Estimated GFR POC Glucose 96 Random Glucose Calcium Stool Occult Blood Random Vancomycin Microbiology Microbiology Results: Microbiology 10/29/24 07:29 Blood Culture - Preliminary Blood - Venous No growth after 24 hours. 10/29/24 07:26 Blood Culture - Preliminary Blood - Venous No growth after 24 hours. Assessment and Plan (1) Cellulitis: Status: Acute Plan Patient is a 78-year-old male with a past medical history significant for gout, hypertension, CAD, PAD, type 2 diabetes, CKD4, pacemaker and class 1 obesity, who presented to the ED due to severe abdominal pain with nausea and vomiting starting 2 hours prior to arrival. cellulitis - WBC 11.2, no fever, tachycardia or tachypnea. no sepsis - failed outpt abx from recent ED visit 10/27 - Doppler ultrasound negative for DVT on 10/27 - Continue vancomycin and Zosyn, day 2 - given 1 L LR - monitor CBC and BMP abd pain with N/V - significant generalized abdominal pain, N/V at home - LFTs normal; lipase elevated at 110 - abdominopelvic CT with concerns for acute calculous cholecystitis - currently asymptomatic, symptoms resolved - has been tolerating solid diet -seen and evaluated by General surgery who think it is more likely to be biliary colic -diet as tolerated; follow up with GI after discharge CKD4 - cr 3.15, at baseline - followed by Dr Lerma - monitor cr chronic microcytic anemia - hemoglobin 11.5 hematocrit 35.9, MCV low - check iron panel - fecal occult blood test - no need for blood transfusion at this time - monitors CBC Hypertension - continue home meds Gout - continue allopurinol CAD/PAD - continue home meds when appropriate T2DM - sliding scale insulin - hold PO meds Class 1 obesity - BMI 31.4 - weight loss encouraged med rec pending full code VTE prophy: pneumoboots pending abd scan Pt requires continued hospitalization for treatment with IV antibiotics of right lower extremity cellulitis that failed outpatient therapy. Quality Stroke Does the patient have a stroke diagnosis?: No VTE Prior VTE?: No VTE Risk Level:: Medical - moderate - high VTE Device Contraindication: N/A - Device Ordered VTE Drug Contraindication: Treatment Not Indicated
[2024-10-30 19:55] LABS: Glucose, Whole Blood 172 mg/dL (60-115)
[2024-10-30 20:00] VITALS: BP 182/76; PULSE 60; RESP 18; TEMP 36.1; O2SAT 97
[2024-10-31 03:06] VITALS: BP 133/62; PULSE 60; RESP 18; TEMP 36.3; O2SAT 94
[2024-10-31 07:27] LABS: Glucose, Whole Blood 110 mg/dL (60-115)
[2024-10-31 07:34] VITALS: BP 160/72; PULSE 60; RESP 18; TEMP 36.7; O2SAT 96
[2024-10-31] MEDS: 0.9 % Sodium Chloride Flush 3 ML SYRINGE IVFLUSH (08:03)
[2024-10-31 09:11] LABS: MANUAL DIFF FLAG NO
[2024-10-31 09:23] LABS: Hematocrit 36.3 % (42.0-52.0); Hemoglobin 11.5 g/dl (14.0-18.0); Imm Gran Abs Auto 0.05 X10*3/uL (0.00-0.03); Imm Gran Pct Auto 0.7 % (0.0-0.4); Lymphocytes Absolute Auto 0.6 X10*3/uL (1.2-4.9); Mean Corpuscular HGB Conc 31.7 g/dl (31.0-36.0); Mean Corpuscular Hemoglobin 20.9 pg (27.0-33.0); Mean Corpuscular Volume 65.9 fL (80.0-98.0); NRBC Abs Auto 0.000 X10*3/uL (0.0-0.012); NRBC Pct Auto 0.0 /100WBC (0.0-0.2); Red Blood Count 5.51 X10*6/uL (4.60-5.80); White Blood Count 7.1 X10*3/uL (4.8-10.8)
[2024-10-31 09:35] LABS: Anion Gap 16 (12-20); Blood Urea Nitrogen 65 mg/dL (9-16); Calcium 8.8 mg/dL (8.4-10.2); Carbon Dioxide 22 mmol/L (22-29); Chloride 108 mmol/L (96-108); Creatinine Clr Calc Pharmacy 24.5; Estimated Glomerular Filt Rate 20; Potassium 4.2 mmol/L (3.3-5.1); Sodium 142 mmol/L (135-145)
[2024-10-31 10:05] LABS: Platelet Count 108 X10*3/uL (160-400)
[2024-10-31 11:34] LABS: Glucose, Whole Blood 204 mg/dL (60-115)
--- NOTE | 2024-10-31 11:56 | PM.DS ---
DS: Providers Provider Date of Service: 10/31/24 Date of admission: 10/29/24 06:48 Date of discharge: 10/31/24 Primary care physician: Unknown Physician Consults: 10/29/24 10:28 Consult to General Surgery Routine Consulting Provider: [facility] [place] [facility] Reason for consultation: Concern for acute cholecystitis DS: Diagnosis Discharge Diagnosis (1) Cellulitis: Status: Acute DS: Summary Hospital Course Hospital Course: From admission HPI: Date of Service: 10/29/24 Attending physician on admission: Jacob Augustine Chief Complaint: cellulitis Patient is a 78-year-old male with a past medical history significant for gout, hypertension, CAD, PID, type 2 diabetes, CKD4, pacemaker and class 1 obesity, who presented to the ED due to severe abdominal pain with nausea and vomiting starting 2 hours prior to arrival. Patient did not report abdominal pain to the ED provider but reported this triage. He focused on his cellulitis that he was seen for 2 days ago that has been worsening in failing outpatient treatment with streaking traveling up the right lower extremity to the posterior knee. He has been taking the doxycycline and cephalexin as prescribed. He reports after eating dinner yesterday he had sudden right upper quadrant pain with nausea and vomiting. The pain has been persistently a 10/10 up until recent, currently a 5/10, with associated vomiting while in the waiting room. He denies any blood in the stool, diarrhea or hematemesis. He denies any urinary symptoms including frequency, urgency or dysuria. Hospital course: Pt was admitted to the hospital for right lower extremity cellulitis that failed outpatient therapy. No sepsis. Pt was treated with IV vancomycin and Zosyn x48 hours to good effect. Pt remained afebrile throughout hospital stay, and erythema and swelling improved. Pt will be discharged home on doxycycline and Augmentin. Pt should follow up with PCP in 1 week time for routine post hospitalization follow up. Of note, pt also has underlying chronic venous stasis dermatitis. Pt also presented to the hospital due to severe RUQ pain and N/V. CTA of abdomen and pelvis showed concerns for acute calculous cholecystitis. Pt was initially kept NPO, though abdominal exam relatively benign and pt did not experience any repeat episodes of nausea and vomiting. Diet was slowly advanced which pt was able to tolerate. Seen and evaluated by General surgery who felt symptoms most likely related to biliary colic and mild cholecystitis. Pt being covered by Zosyn as above. Pt was able to tolerate a full diet and continued to deny nausea, vomiting, or abdominal pain while on the hospital floor. Should follow up outpatient with General surgery in 1-2 months' time for consultation about elective cholecystectomy. Pt will be discharged on Augmentin as above which he should continue until completion. Pt should continue all other home medications. Time Attestation Discharge Coordination Time (in mins): 35 Quality: Safe Use of Opioids Does Pt have an Active Cancer Diagnosis on the Problem List?: No Quality: Stroke Does the patient have a stroke diagnosis?: No Physical Exam Exam: Exam: General: AOx3, no acute distress Resp: CTA bilaterally CVS: S1, S2, RRR GI: +BS, NT, no distention Skin: Warm, dry Neuro: Cranial nerves II-XII grossly intact bilaterally. Motor grossly intact bilaterally Extremities: Improved right lower extremity erythema and swelling. As pictured below Psych: Appropriate affect Vital Signs: Vital Signs: Last Vital Signs Temp 98.0 F 10/31/24 07:34 Pulse 60 10/31/24 07:34 Resp 18 10/31/24 07:34 BP 160/72 H 10/31/24 07:34 Pulse Ox 96 10/31/24 07:34 O2 Del Method Room Air 10/31/24 07:34 BMI result Body Mass Index 30.0 DS: Data Data Completed and Pending Labs on day of discharge: Laboratory Results - last 24 hr 10/30/24 10/30/24 10/31/24 16:35 19:50 07:21 WBC RBC Hgb Hct MCV MCH MCHC RDW Plt Count MPV Immature Gran % (Auto) Neut % (Auto) Lymph % (Auto) [place] % (Auto) Eos % (Auto) Baso % (Auto) Lymph # (Auto) [place] # (Auto) Eos # (Auto) Baso # (Auto) Abs Immat Gran (auto) Absolute Neuts (auto) Absolute Nucleated RBC Nucleated RBC % (auto) Sodium Potassium Chloride Carbon Dioxide Anion Gap BUN Creatinine Estim Creat Clear Calc Estimated GFR POC Glucose 96 172 H 110 Random Glucose Calcium 10/31/24 10/31/24 08:36 11:30 WBC 7.1 RBC 5.51 Hgb 11.5 L Hct 36.3 L MCV 65.9 L MCH 20.9 L MCHC 31.7 RDW 18.3 H Plt Count 108 L MPV Not Reportable Immature Gran % (Auto) 0.7 H Neut % (Auto) 79.9 H Lymph % (Auto) 8.6 L [place] % (Auto) 7.7 Eos % (Auto) 2.7 Baso % (Auto) 0.4 Lymph # (Auto) 0.6 L [place] # (Auto) 0.6 Eos # (Auto) 0.2 Baso # (Auto) 0.0 Abs Immat Gran (auto) 0.05 H Absolute Neuts (auto) 5.7 Absolute Nucleated RBC 0.000 Nucleated RBC % (auto) 0.0 Sodium 142 Potassium 4.2 Chloride 108 Carbon Dioxide 22 Anion Gap 16 BUN 65 H Creatinine 3.00 H Estim Creat Clear Calc 24.5 Estimated GFR 20 POC Glucose 204 H Random Glucose 170 H Calcium 8.8 Preliminary micro results at discharge 10/29/24 07:29 Blood Culture - Preliminary Blood - Venous No growth after 48 hours. 10/29/24 07:26 Blood Culture - Preliminary Blood - Venous No growth after 48 hours. Discharge Plan Discharge Anticipated Discharge Date/Time: 10/31/24 13:02 Patient Disposition: Home, Self-Care Discharge Diagnosis: Acute right lower extremity cellulitis that failed outpatient therapy Referrals: Elaine Nobles MD [Physician, General Surgery] - 1 Week Referral Note: F/U for possible mild cholecystitis while in the hospital Physician,Unknown J [Primary Care Provider, Medical] - 1 Week Discharge Medications: New doxycycline monohydrate 100 mg capsule 100 mg PO BID Qty: 2 0RF Rx Instructions: Take one capsule twice a day for cellulitis. Use this in conjunction with your other prescription for a total of 7 days amoxicillin-pot clavulanate 875-125 mg tablet 1 tab PO BID Qty: 14 0RF Rx Instructions: Take one pill twice a day for the next 7 days, ending on 10/07. Take with meals and complete entire course of antibiotics. Continued atorvastatin 40 mg Tablet 80 mg PO BEDTIME amlodipine 5 mg Tablet 5 mg PO DAILY allopurinol 100 mg Tablet 100 mg PO DAILY doxazosin 4 mg Tablet 4 mg PO BEDTIME furosemide 20 mg Tablet 40 mg PO BID glipizide 5 mg Tablet 5 mg PO DAILY hydralazine 100 mg tablet 100 mg PO BID dapagliflozin propanediol [Farxiga] 10 mg tablet 10 mg PO DAILY aspirin 81 mg Tablet 81 mg PO DAILY Discharge Orders: Discharge Order (Routine); Ordered 10/31/24 Ordered By: Brody Shipley Activity on Discharge: As tolerated Stand Alone Forms: Patient Portal Discharge page Print Language: [place] Care Plan Goals: See below Health Concerns: Right leg cellulitis Sepsis Acute cholecystitis Plan of Treatment: You were admitted to the hospital for right lower leg cellulitis that failed outpatient therapy on oral antibiotics. You were treated with IV antibiotics to good effect. You will be sent home on oral antibiotics. -- take doxycycline 100 mg twice a day and Augmentin 875 mg twice a day for the next 7 days, ending on 11/07. Take with meals had complete your entire course of antibiotics. For doxycycline, you are only being prescribed a new prescription of 2 pills. You should also complete the entire course of antibiotics you were previously prescribed by the ED. -- follow up outpatient with your PCP in 1 week for routine post hospitalization follow up You also experienced right upper quadrant abdominal pain and nausea and vomiting. Imaging was concerning for possible infected/inflamed gall bladder. Your symptoms resolved by the time you were on the hospital floor and you were able to tolerate a full diet. You were seen and evaluated by General surgery who thought symptoms secondary to biliary colic or mild cholecystitis that improved with conservative care. You are being treated with appropriate antibiotics for mild cholecystitis as above (Augmentin). -- follow up outpatient in [address] Nobles in general surgery for possible elective laparoscopic cholecystectomy. -- you should resume all of your other home medications. Assessment: See discharge summary Discharge Date/Time: 10/31/24 13:37
[2024-10-31 13:29] VITALS: BP 139/63; PULSE 60; RESP 18; TEMP 36.5; O2SAT 97
== END 2024-10-31 13:37 | disposition home or self-care (01) | DRG 603 ==
LOC: HO.ED 10-29 07:19 → HO.EDOVER 10-29 08:47 → HO.S3 10-29 10:34
PROVIDERS: Admitting Provider Physician Assistant; Emergency Provider Emergency Medicine; PCP Internal Medicine; Visit Provider Student in an Organized Health Care Education/Training Program
DX: L03.115 Cellulitis of right lower limb (principal); N18.4 Chronic kidney disease, stage 4 (severe); K80.00 Calculus of gallbladder with acute cholecystitis without obstruction; I25.10 Atherosclerotic heart disease of native coronary artery without angina pectoris; I12.9 Hypertensive chronic kidney disease with stage 1 through stage 4 chronic kidney disease, or unspecified chronic kidney disease; E11.51 Type 2 diabetes mellitus with diabetic peripheral angiopathy without gangrene; Z71.3 Dietary counseling and surveillance; Z68.30 Body mass index [BMI] 30.0-30.9, adult; D50.9 Iron deficiency anemia, unspecified; E11.22 Type 2 diabetes mellitus with diabetic chronic kidney disease; E66.811 Obesity, class 1; Z95.0 Presence of cardiac pacemaker; Z95.5 Presence of coronary angioplasty implant and graft; Z79.82 Long term (current) use of aspirin; Z79.84 Long term (current) use of oral hypoglycemic drugs; Z79.899 Other long term (current) drug therapy
CPT/HCPCS: 36415; 74176; 80048; 80053; 80202; 81003; 82272; 82565; 82947; 83540; 83605; 83690; 85025; 87040; 87637; 99285; J2270; J2543; J3373; J3374; J7120

== ENCOUNTER 2024-10-29 06:48 | Outpatient (BNV) | payer MEDICARE, OTHER, SELFPAY | END 2024-10-29 07:47 | PROVIDERS: Admitting Provider Physician Assistant; Emergency Provider Emergency Medicine; Visit Provider Radiology Diagnostic Radiology | DX: R16.2 Hepatomegaly with splenomegaly, not elsewhere classified (principal) | CPT/HCPCS: 74176 ==

== ENCOUNTER → 2024-10-29 06:48 | Outpatient (BNV) | payer MEDICARE, OTHER, SELFPAY | PROVIDERS: Admitting Provider Physician Assistant; Emergency Provider Emergency Medicine | DX: R10.11 Right upper quadrant pain (principal) | CPT/HCPCS: 99232 ==

== ENCOUNTER → 2024-10-29 06:48 | Outpatient (BNV) | payer MEDICARE, OTHER, SELFPAY | PROVIDERS: Admitting Provider Physician Assistant; Emergency Provider Emergency Medicine; Visit Provider Student in an Organized Health Care Education/Training Program | DX: L03.90 Cellulitis, unspecified (principal); R10.9 Unspecified abdominal pain; R74.8 Abnormal levels of other serum enzymes; N18.4 Chronic kidney disease, stage 4 (severe); E66.811 Obesity, class 1 | CPT/HCPCS: 99223; 99233; 99239; 99499 ==

== ENCOUNTER 2024-11-16 09:55 | Outpatient (AMB) | payer MEDICARE, OTHER, SELFPAY ==
--- OUTSIDE RECORDS SUMMARY | 2024-11-12 10:30 | XMS_ITS | Encounter Summary ---
Author Organization [facility] Address [address] [place] [address] Care Team Providers Care Coroner Transport Technician Name Role Phone Chauncey Salmeron MD Primary Care Provider [phone] Reason for Referral * Imaging (Routine) - Authorized Specialty Diagnoses / Procedures Referred By Contac t Referred To Contact Radiology Diagnoses Bilateral carotid artery stenosis Procedures CT Angio Neck wo and/or w Contrast Ron Maloney MD [address] [place] [address] [address] Phone: tel: Referral ID Status Reason Start Date Expiration Date V isits Requested Visits Authorized [id number] Authorized 11/12/2024 11/12/2025 1 1 Reason for Visit * Reason Comments Carotid Artery Disease Encounter Details Date Type Department Care Team (Late st Contact Info) Description 11/12/2024 10:30 AM EDT Office Visit Vascular Surgery - [place] [address] [place] [id number] Ron Maloney MD [address] [place] [address] Bilateral carotid artery stenosis (Primary Dx); PAD (peripheral artery disease) (CMS/HCC V24) Social History Tobacco Use Types Packs/Day Years Used Date Smoking Tobacco: Never Smokeless Tobacco: Never Alcohol Use Standard Drinks/Week Comments Yes 0 (1 standard drink = 0.6 oz pur e alcohol) once a week Sex and Gender Information Value Date Recorded Sex Assigned at Not on file Legal Sex Male 9:58 PM EST Gender Identity Not on file Sexual Orientation Not on file documented as of this encounter Last Filed Vital Signs Vital Sign Reading Time Taken Comments Blood Pressure 110/70 11/12/2024 10:20 AM EDT Pulse 60 11/12/2024 10:20 AM EDT Temperature - - Respiratory Rate 16 11/12/2024 10:20 AM EDT Oxygen Saturation - - Inhaled Oxygen Concentration - - Weight 95.7 kg (211 lb) 11/12/2024 10:20 AM EDT Height 180.3 cm (5' 11 ) 11/12/2024 10:20 AM EDT Body Mass Index 29.43 11/12/2024 10:20 AM EDT documented in this encounter Progress Notes * Moshe Palm MA - 11/12/2024 10:30 AM EDT Images from the original note were not included. Jose Angel Denson Procedures: Vascular US duplex carotid bilateral Accession Number: [id number] Date of Study: 09/27/2024 Ordering Provider: RENE Galeano Clinical Indications: Carotid artery stenosis Reading Physicians Performing Staff Vascular: Ron Maloney MD Tech: Namrata Rocío Patient Information Patient Name Jose Angel Denson Legal Sex Male (78 y.o.) Diagnosis Priority: Routine Bilateral carotid artery stenosis [I65.23 (ICD-10-CM)]; History of right-sided carotid endarterectomy [Z98.890 (ICD-10-CM)] PACS Images Show images for Vascular US duplex carotid bilateral Performing Physician Performing Physician/Midlevel: None Interpretation Summary Show Result Comparison Right ICA: There is mild heterogeneous plaque. [...] 4. Vertebral artery has normal antegrade flow. Result History Order Result History Report Procedure Details A patel scale, color and doppler analysis ultrasound was performed. During the study longitudinal and transverse views were obtained. Continuous wave doppler and pulsed wave doppler was performed. Overall the study quality was poorly visualized. Study was technically difficult due to: acoustic shadowing. Cerebrovascular Findings Right Carotid The CCA has mild heterogeneous [...] waveforms are biphasic. Vertebral flow is antegrade. Cerebrovascular Measurements Right PSV Right EDV Left PSV Left EDV CCA Prox 57 cm/s 8 cm/s 91 cm/s 12 cm/s CCA Mid 63 cm/s 9 cm/s 90 cm/s 12 cm/s CCA Dist 72 cm/s 10 cm/s 108 cm/s 13 cm/s ICA Prox 268 cm/s 41 cm/s 343 cm/s 45 cm/s ICA Mid 137 cm/s 31 cm/s 163 cm/s 22 cm/s ICA Dist 85 cm/s 21 cm/s 116 cm/s 21 cm/s ICA/CCA Ratio 3.5 no units 3.2 no units ECA 468 cm/s 21 cm/s 192 cm/s 27 cm/s Bulb 125 cm/s 16 cm/s 284 cm/s 43 cm/s Vertebral 63 cm/s 57 cm/s SCL Prox 298 cm/s 189 cm/s Segmental Pressure Measurements Right Left Brachial BP 128 mmHg 135 mmHg All Reviewers List RNEE Mckeon on 09/28/2024 16:01 Signed at 1555 EDT * Ron Maloney MD - 11/12/2024 10:30 AM EDT Images from the original note were not included. PATIENT: Jose Angel Denson ENCOUNTER: 11/12/2024 EMRN: [id number] : 1945 PCP: Chauncey Salmeron MD CHIEF COMPLAINT: Carotid Artery Disease HPI: This 78 y.o. male presents for follow up of carotid disease. Medical history significant for HTN, HLD, T2DM and CKD stage 3, CAD status post quadruple bypass and TAVR. He has a carotid duplex to review. Patient denies TIA or strokelike symptoms including amaurosis fugax, facial droop, slurred speech, unilateral weakness. He has a history of right carotid endarterectomy by Dr. Urban in 2016 for asymptomatic right ICA stenosis. He reports residual numbness under the chin. Pt also has history of PAD and is s/p left superficial femoral artery angioplasty and stent, and left popliteal artery angioplasty, arthrectomy, and stent placement performed on October 05, 2019 at [facility] by Dr. Maloney and per patient multiple endovascular interventions by Dr. Sow. He currently has no cl audication, rest pain, or gangrene. He recently acquired a small wound to the distal third toe secondary to trauma. This appears to be healing well. He is on coumadin for atrial fibrillation but will be stopping in 1 month as he just had a watchmanprocedure. He is on a baby aspirin and a statin daily. He has never smoked. PAST MEDICAL HISTORY: Patient Active Problem List Diagnosis (HFpEF) heart failure with preserved ejection fraction ([facility] V24, [facility] V28) Atrial fibrillation ([facility] V24, [facility] V28) Bilateral carotid artery stenosis CAD (coronary artery disease) Chronic kidney disease (CKD), stage III (moderate) ([facility] V24, [facility] V28) CKD (chronic kidney disease), stage IV ([facility] V24, CMS/HCC V28) Hyperlipidemia Hypertension Laceration of left lower leg without complication Non-pressure chronic ulcer of lower leg, left, limited to breakdown of skin ([facility] V24, [facility] V28) PAD (peripheral artery disease) ([facility] V24) Type 2 diabetes mellitus ([facility] V24, [facility] V28) S/P TAVR (transcatheter aortic valve replacement) Pulmonary hypertension ([facility] V24, [facility] V28) PAST SURGICAL HISTORY: Past Surgical History: Procedure Laterality Date CARDIAC CATHETERIZATION PROCEDURE: HISTORICAL CARDIAC CATH; COMMENT: 03/06/16, 04/07/15 CARDIAC CATHETERIZATION 10/10/2005 PROCEDURE: HISTORICAL CARDIAC CATH CARDIAC CATHETERIZATION DONE AT [facility] ON 07/23/24. INDICATIONS:Congestive Heart Failure HIP ARTHROPLASTY Right 08/28/2007 PROCEDURE: HISTORICAL HIP REPLACEMENT; COMMENT: total hip arthrosplasty OTHER SURGICAL HISTORY Right 03/2015 PROCEDURE: HISTORY OTHER; COMMENT: Carotid endardectomy and patch OTHER SURGICAL HISTORY Left PROCEDURE: HISTORY OTHER; COMMENT: Irrigation and Debridement of hip OTHER SURGICAL HISTORY PROCEDURE: HISTORY OTHER; COMMENT: ORIF femur fx TONSILLECTOMY PROCEDURE: HISTORICAL TONSILLECTOMY TOTAL KNEE ARTHROPLASTY 07/21/2008 PROCEDURE: HISTORICAL TOTAL KNEE REPLACE MEDICATIONS: Outpatient Medications Marked as Taking for the 11/12/24 encounter (Office Visit) with Ron Maloney MD Medication Sig Dispense Refill acetaminophen (TYLENOL) 325 mg tablet Take 2 tablets (650 mg total) by mouth every 8 (eight) hours if needed. allopurinoL (ZYLOPRIM) 100 mg tablet Take 2 tablets (200 mg total) by mouth 1 (one) time each day. ascorbic acid, vitamin C, 500 mg capsule Take 1 capsule by mouth 1 (one) time each day. aspirin 81 mg EC tablet Take 1 tablet (81 mg total) by mouth 1 (one) time each day. atorvastatin (LIPITOR) 80 mg tablet TAKE 1 TABLET BY MOUTH EVERY DAY. doxazosin XL (CARDURA XL) 4 mg 24 hr tablet Take 1 tablet (4 mg total) by mouth 1 (one) time each day with breakfast. Do not crush, chew, or split. Farxiga 10 mg tablet Take 1 tablet (10 mg total) by mouth 1 (one) time each day. furosemide (LASIX) 80 mg tablet Take 0.5 tablets (40 mg total) by mouth 2 (two) times a day. glipiZIDE (GLUCOTROL) 5 mg tablet Take 1 tablet (5 mg total) by mouth 1 (one) time each day. hydrALAZINE (APRESOLINE) 100 mg tablet Take 1 tablet (100 mg total) by mouth 2 (two) times a day. levocetirizine (XYZAL) 5 mg tablet Take 1 tablet (5 mg total) by mouth 1 (one) time each day in theevening. multivitamin (MULTIPLE VITAMINS ORAL) Take 1 Tablet by mouth daily. SOCIAL HISTORY: Social History Tobacco Use Smoking status: Never Smokeless tobacco: Never Substance Use Topics Alcohol use: Yes Comment: once a week Drug use: Never FAMILY HISTORY: No family history on file. ALLERGIES: Allergies Allergen Reactions Sulfamethoxazole-Trimethoprim Kidney related issues Per patient, affected his kidneys Cefazolin Lisinopril ROS: GENERAL: No malaise, significant weight loss or fever NECK: No lumps, goiter, pain or significant neck swelling RESPIRATORY: No cough, wheezing or shortness of breath CARDIAC: No chest pain or palpitations GI: No abdominal discomfort MUSCULOSKELETAL: SEE HPI SKIN: No lesions, rash or itching NEURO: No persistent headache, syncope, seizures, weakness or numbness VASCULAR: SEE HPI PHYSICAL EXAM: Vitals: 11/12/24 1020 BP: 110/70 Pulse: 60 Resp: 16 Weight: 95.7 kg (211 lb) Height: 1.803 m (71 ) General: Alert and oriented x 3, no acute distress, well-nourished HEENT: Normocephalic, atraumatic Neck: No JVD, right neck scar well healed Chest: Respiratory effort normal Cardiac: Regular rate rhythm Abdomen: Soft, nontender, nondistended Extremities: -Right upper extremity: 2+ radial artery pulses palpable. -Left upper extremity: 2+ radial artery pulses palpable. -Right lower extremity: 2+ PT pulse palpable. No ulcers or gangrene. No edema. -Left lower extremity: 2+ PT pulse palpable. No ulcers or gangrene. No edema. Left third toe wound. Integumentary: No wounds Lymphatics: No lymphadenopathy Neuro: Cranial nerves II through XII intact. Motor and sensory function intact and equal bilaterally. DIAGNOSTIC TESTING: Jose Angel Denson Procedures: Vascular US duplex carotid bilateral Accession Number: [id number] Date of Study: 09/27/2024 Ordering Provider: RENE Galeano Clinical Indications: Carotid artery stenosis Reading Physicians Performing Staff Vascular: Ron Maloney MD Tech: Namrata Alford Patient Information Patient Name Jose Angel Denson Legal Sex Male (78 y.o.) Diagnosis Priority: Routine Bilateral carotid artery stenosis [I65.23 (ICD-10-CM)]; History of right-sided carotid endarterectomy [Z98.890 (ICD-10-CM)] PACS Images Show images for Vascular US duplex carotid bilateral Performing Physician Performing Physician/Midlevel: None Interpretation Summary Show Result Comparison Right ICA: There is mild heterogeneous plaque. [...] 4. Vertebral artery has normal antegrade flow. Result History Order Result History Report Procedure Details A patel scale, color and doppler analysis ultrasound was performed. During the study longitudinal and transverse views were obtained. Continuous wave doppler and pulsed wave doppler was performed. Overall the study quality was poorly visualized. Study was technically difficult due to: acoustic shadowing. Cerebrovascular Findings Right Carotid The CCA has mild heterogeneous [...] waveforms are biphasic. Vertebral flow is antegrade. Cerebrovascular Measurements Right PSV Right EDV Left PSV Left EDV CCA Prox 57 cm/s 8 cm/s 91 cm/s 12 cm/s CCA Mid 63 cm/s 9 cm/s 90 cm/s 12 cm/s CCA Dist 72 cm/s 10 cm/s 108 cm/s 13 cm/s ICA Prox 268 cm/s 41 cm/s 343 cm/s 45 cm/s ICA Mid 137 cm/s 31 cm/s 163 cm/s 22 cm/s ICA Dist 85 cm/s 21 cm/s 116 cm/s 21 cm/s ICA/CCA Ratio 3.5 no units 3.2 no units ECA 468 cm/s 21 cm/s 192 cm/s 27 cm/s Bulb 125 cm/s 16 cm/s 284 cm/s 43 cm/s Vertebral 63 cm/s 57 cm/s SCL Prox 298 cm/s 189 cm/s Segmental Pressure Measurements Right Left Brachial BP 128 mmHg 135 mmHg All Reviewers List RENE Mckeon on 09/28/2024 16:01 Signed at 1555 EDT Carotid Duplex-10/27/2023-10:01 Findings: Right Carotid: There is heterogeneous, irregular atherosclerotic plaque noted in the right common, internal and external carotid artery. Left Carotid: There is heterogeneous, irregular atherosclerotic plaque noted in the left common, internal and external carotid artery. Conclusions: RIGHT. 1. There is atherosclerotic plaque in the carotid system as noted above. 2. There is 50-69% stenosis in the internal carotid artery based on Doppler velocity (PSV 173 cm/s) 3. The subclavian artery has normal Doppler flow pattern. 4. Vertebral artery has normal antegrade flow. LEFT. 1. There is atherosclerotic plaque in the carotid system as noted above. 2. There is 50-69% stenosis in the internal carotid artery based on Doppler velocity (PSV 209 cm/s) 3. The subclavian artery has normal Doppler flow pattern. 4. Vertebral artery has normal antegrade flow. CTA of the neck performed on 11/01/2022 at [facility] shows Postsurgical changes of the right common and internal carotid artery status post endarterectomy with no residual stenosis. Mild focal narrowing of the common carotid artery just proximal to the bulb. Approximately 24% stenosis of the proximal left ICA. Hypodense right thyroid nodule can obtain ultrasound of thyroid to further evaluate. Small-moderate bilateral pleural effusions. Carotid duplex performed on 09/05/2022 at [facility] showed Greater than 70% stenosis bilaterally with elevated peak systolic velocity on the right of 333 and 289 on the left. Elevated velocities suggest external carotid artery stenosis. Subclavian artery hasnormal Doppler flow pattern bilaterally. Vertebral artery has normal antegrade flow bilaterally. I independently reviewed the studies along with the images. ASSESSMENT: 1. Bilateral carotid artery stenosis 2. PAD (peripheral artery disease) ([facility] V24) PLAN: 78 y.o. male with asymptomatic carotid stenosis with history of R CEA. We reviewed his carotid duplex which shows bilateral greater than 70% ICA stenosis based on velocity criteria. At this juncture in time he warrants a CTA for further evaluation. Alternatives were explained and patient has elected to undergo CTA head and neck. Will follow-up in 3 months.. No intervention warranted at this time.Patient to continue aspirin indefinitely. Patient also has no significant clinical peripheral arterial disease with bilateral 2+ PT pulses and biphasic Doppler waveforms in the foot. He has adequate arterial supply to heal wound within the left foot. No intervention is warranted at this time. Patient has ultrasound scheduled with Dr. Sow.We have cautioned the patient that all endovascular intervention have associated risks. If [facility] recommend intervention, we have told the patient to follow-up with us for a second opinion. We discussed the natural pathophysiology of carotid disease. I spent 30 minutes in an encounter with this patient, including time spent with patient, chart review, reviewing and ordering diagnostic studies, and documentation. documented in this encounter Plan of Treatment Upcoming Encounters Date Type Department Care Team (Late st Contact Info) Description 02/25/2025 9:30 AM EST Office Visit Vascular Surgery - [place] [address] [place] [address] Ron Maloney MD [address] [place] [phone] 05/12/2025 10:00 AM EST Ancillary Procedure [facility] [address] [facility] [address] [place] [address] Scheduled Orders Name Type Priority Associated Diagnoses Orde r Schedule CT Angio Neck wo and/or w Contrast Imaging Routine Bilateral carotid artery stenosis Expected: 01/12/2025, Expires: 11/12/2025 BUN Lab Routine Bilateral carotid artery stenosis Expected: 11/12/2024, Expires: 11/12/2025 Creatinine Lab Routine Bilateral carotid artery stenosis Expected: 11/12/2024, Expires: 11/12/2025 documented as of this encounter Visit Diagnoses Diagnosis Bilateral carotid artery stenosis- Primary Occlusion and stenosis of carotid artery without mention of cerebral infarction PAD (peripheral artery disease) (CMS/[facility] V24) Unspecified peripheral vascular disease Encounter for adjustment or management of cardiac device documented in this encounter Historical Medications * This list may reflect changes made after this encounter. Farxiga 10 mg tablet Take 1 tablet (10 mg total) by mouth 1 (one) time each day. 09/30/2024 added in this encounter Care Teams Coroner Transport Technician Relationship Specialty Start Date End Date Chauncey Salmeron MD [address] [place] [address] [address] [place], [place] PCP - General Internal Medicine 02/20/18 documented as of this encounter
--- NOTE | 2024-11-16 10:07 | A.OFFVIS_ITS ---
Vital Signs 11/16/24 10:11 Height 5 ft 9 in Weight 212 lb BMI 31.3 BP 128/55 L Blood Pressure Location Rt brachial Position Sitting Pulse 62 Intake Visit Reasons: gallbladder issues Intake Note: Patient seen at [facility] emergency department for abdominal pain. Patient c/o: RUQ pain. Has had two abdominal pain attacks. Nausea, diarrhea. Imaging: Abdomen pelvis US: 10-29-2024 Linseed Cake Trimmer Required: No Accompanied by: Self / Same As Patient Allergies sulfamethoxazole (From Bactrim) Allergy (Verified 11/16/24 10:08) Affected Kidneys trimethoprim (From Bactrim) Allergy (Verified 11/16/24 10:08) Affected Kidneys HPI HPI gallbladder issues: Details: 78-year-old male with a history of stage IV CKD, s/p CABG 5, hypertension, type 2 diabetes, PID, obesity, watchman in place presenting to the office for evaluation of biliary colic, cholelithiasis. Patient was recently admitted to [facility] on 10/29 for cellulitis of right lower extremity, also patient having right upper quadrant pain with associated nausea and vomiting after eating dinner. CT showing possible acute cholecystitis with numerous gallstones in the gallbladder. His right upper quadrant pain resolved while admitted and he was treated with antibiotics rather than surgical intervention given the cellulitis that was being managed at the same time. He was eventually discharge. And had a follow up appointment for later this month. However he had another similar attack of right upper quadrant pain that lasted about 3-4 hours with associated nausea and vomiting and resolved on its own so he called to move his appointment up. Currently he isn't having pain but when he uses in the right upper quadrant occasionally radiates to the lower left quadrant. He would like to proceed with removal of the gallbladder if indicated. Current medications include allopurinol 100 mg daily, amlodipine 5 mg daily, aspirin 81 mg daily, atorvastatin 80 mg at bedtime, Farxiga 10 mg daily, doxazosin 4 mg nightly, glipizide 5 mg daily, hydralazine 100 mg twice daily. He denies any additional anticoagulation, he has a Watchman. Surgical history includes CABG 5, stent placement left SFA and popliteal artery, right carotid endarterectomy. He denies any abdominal surgeries [facility] Medical History CKD (chronic kidney disease) stage 4, GFR 15-29 ml/min AV block, 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 CKD (chronic kidney disease), stage III Peripheral arterial occlusive disease Arthritis GERD (gastroesophageal reflux disease) BPH (benign prostatic hyperplasia) Gout Diabetes CHF (congestive heart failure) HTN (hypertension) Elevated cholesterol CAD (coronary artery disease) Surgical History Hx of CABG Hx of angioplasty History of bilateral total hip arthroplasty History of carotid endarterectomy Hx of coronary angioplasty Social History Household Members: Spouse and Other Household Members Other:: [facility] [[email or web address] Housing: House Are you a primary home health care physician to a significant other at home: No Do you presently have visiting nurse or other home services: No Patient Tobacco Use Status: Never used Tobacco service: No Review of Systems Const All systems reviewed & are unremarkable except as noted in HPI and below Physical Exam Vital Signs: Last Vital Signs Pulse 62 11/16/24 10:11 BP 128/55 L 11/16/24 10:11 BMI result Body Mass Index 31.3 Const General: comfortable and no acute distress Orientation/consciousness: patient oriented x3 Chest Other: Thoracotomy scars, chest tube scars GI Inspection: No distended and No scar Palpation (GI): Soft to palpation and nontender (Negative York's sign) Neuro General: patient oriented x3 Assessment & Plan Assessment & Plan (1) Recurrent biliary colic: Code(s): K80.50 - Calculus of bile duct without cholangitis or cholecystitis without obstruction Category: Medical (2) Cholelithiasis: Code(s): K80.20 - Calculus of gallbladder without cholecystitis without obstruction Category: Medical Qualifiers: Cholelithiasis location: gallbladder Cholecystitis presence: with cholecystitis Cholecystitis acuity: acute Biliary obstruction: without biliary obstruction Qualified Code(s): K80.00 - Calculus of gallbladder with acute cholecystitis without obstruction Plan 78-year-old male with a history of stage IV CKD, s/p CABG 5, hypertension, type 2 diabetes, PID, obesity, watchman in place presenting to the office for evaluation of biliary colic, cholelithiasis. Patient had initial episode of biliary colic doing most recent admission to [facility]. Primary focus of this visit was right lower extremity cellulitis. But patient also was experiencing right upper quadrant pain with associated nausea and vomiting that eventually resolved on its own. CT findings suggestive of possible early cholecystitis with evidence of cholelithiasis. Decision was made to treat conservatively and follow up for possible elective cholecystectomy. Patient presenting today for evaluation of biliary colic, cholelithiasis. States he had another episode of sharp right upper quadrant pain with associated nausea and vomiting that lasted about 3 hours after he was discharged. He would like to get the gallbladder removed if possible. I introduced the patient to our surgeon Dr. Oliver, who described the procedure, technique and associated risks, including but not limited to, bleeding, infection, injury to surrounding organs, patient understands this and would like to proceed with laparoscopic possible open cholecystectomy. He will likely need clearance from PCP and ballaster prior to procedure, we will have our office coordinate these when scheduling for the surgery. Medications: Discontinued amoxicillin-pot clavulanate 875-125 mg Take one pill twice a day for the next 7 days, ending on 10/07. Take with meals and complete entire course of antibiotics. Discontinued Reason: Patient Completed Course 1 tab PO BID 14 tabs 0RF doxycycline monohydrate Take one capsule twice a day for cellulitis. Use this in conjunction with your other prescription for a total of 7 days Discontinued Reason: Patient Completed Course 100 mg PO BID 2 caps 0RF Coding Level of Care Code New Pt Level 4 (03639) Diagnoses Recurrent biliary colic K80.50 Calculus of gallbladder with acute cholecystitis without obstruction K80.00 Cholelithiasis location: gallbladder Cholecystitis presence: with cholecystitis Cholecystitis acuity: acute Biliary obstruction: without biliary obstruction
[2024-11-16 10:11] VITALS: BP 128/55; PULSE 62; BMI 31.3
--- OUTSIDE RECORDS SUMMARY | 2024-11-16 11:15 | XMS_ITS | Clinical Summary ---
Author Organization [facility] Address [address] [place] [address] Care Team Providers Care Flare Man Name Role Phone Chauncey Salmeron MD Primary Care Provider [phone] Allergies Active Allergy Reactions Criticality Noted Date [...] 75+ series) 2021 COVID-19 Vaccine (4 - 2024-2 6 season) 2024 02/14/2021, 06/21/2020, 03/17/2020 Influenza Vaccine (#1) 2024 12/06/2019 Hepatitis B Vaccines Aged Out No long er eligible based on patient's age to complete this topic RSV Ped < 20 months Aged Out No longe r eligible based on patient's age to complete this topic Medical Devices Implanted Type Area Product Safety Technician Device Identifier Shelf Expiration Date Model / Serial / Lot Device Clsur Watchman Flx Pro Shannan 31mm Bsci-Prnt [id number] - [id number] Implanted:Qty: 1 on 09/25/2023 by Sid Toney MD at [facility] Left: Heart [employer] ESTELITA [id number] / [id number] / Description:Left atrial appe ndage closure device Advance Directives For more information, please contact: [phone] Latest Code Status on File Code Status Date Activated Date Inactivated Comments Full Code 09/25/2023 11:28 AM 09/25/2023 11:04 PM Thi s code status was ascertained in the following way: discussion with patient . Care Teams Flare Man Relationship Specialty Start Date End Date Chauncey Salmeron MD [address] [place] [address] PCP - General Geriatric Medicine 09/24/23
--- OUTSIDE RECORDS SUMMARY | 2024-11-16 11:15 | XMS_ITS | Clinical Summary ---
Author Organization [facility] Address [address] [place] [address] Phone Care Team Providers Care Poured Pipe Maker Name Role Phone Chauncey Salmeron MD Primary Care Provider [phone] Allergies Active Allergy Reactions Criticality Noted Date [...] catheterization 03/25/2022 12/18/2022 Overview (12/18/2022): Done at [facility] on 03/19/22 with SAMARA - indications: CHF [...] bpm. 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 for a more prolonged period and there [...] Office Visit [facility] [address] [place] [address] Mustapha Lerma MD Chronic kidney disease, stage 4 (severe) (HCC) (Primary Dx); Type 2 diabetes mellitus with diabetic chronic kidney disease (HCC); Renal osteodystrophy 09/13/2024 Orders Only [facility] [address] [place] [id number] Mustapha Lerma MD from Last 3 Months [...] [facility] [address] [place] [address] Mustapha Lerma MD [address] [facility] [address] [place] [address] Health Maintenance Due Date Last [...] (09/13/2024 9:48 AM EDT) Specimen Status Comment [facility] Comment: Ambig Abbrev RP10 Default Ambig Abbrev RP10 Default A hand-written panel/profile was received from your office. In accordance with the [facility] Ambiguous Test Code Policy dated September 2002, we have completed your order by using the closest currently or formerly recognized AMA panel. We have assigned Renal Panel (10), Test Code #[id number] to this request. If this is not the testing you wished to receive on this specimen, please contact the [facility] Client Inquiry/Technical Services Department to clarify the test order. We appreciate your business. 09/13/2024 9:48 AM EDT 09/13/2024 Comment:UR us Mustapha Lerma MD LAB BLOOD ORDERABLES Final Re sult [facility] [address] [place] [address] * Result (09/13/2024 9:48 AM EDT) Result No growth [facility] 09/13/2024 9:48 AM EDT 09/13/2024 Mustapha Lerma MD LAB MICROBIOLOGY - GENERAL OR DERABLES Final Result [facility] [address] [place] [address] * Microscopic Examination (09/13/2024 9:48 AM EDT) WBC, Urine None seen 0 - 5 /hpf [facility] RBC, Urine 0-2 0 - 2 /hpf [facility] Squamous Epithelial, Urine 0-10 0 - 10 /hpf [facility] Casts None seen None seen /lpf [facility] Bacteria, Urine None seen None seen/Few [facility] 09/13/2024 9:48 AM EDT 09/13/2024 Mustapha Lerma MD LAB MICROBIOLOGY - GENERAL OR DERABLES Final Result [facility] [address] [place] [address] * (ABNORMAL) Protein, Total, Random Urine w/Creatinine (Protein/Creat Ratio) (09/13/2024 9:48 AM EDT) Creatinine, Ur 77.5 Not Estab. mg/dL [facility] Protein, Ur 16.0 Not Estab. mg/dL [facility] Urine Protein/Creati nine Ratio 206(H) 0 - 200 mg/g creat [facility] 09/13/2024 9:48 AM EDT 09/13/2024 Comment:UR Mustapha Lerma MD LAB URINE ORDERABLES Final Re sult Performing Organization Address [facility] Co de Phone Number [facility] [place] [address] [place] [address] * (ABNORMAL) Urine Albumin / Creatinine Ratio (09/13/2024 9:48 AM EDT) Albumin, Urine 36.1 Not Estab. ug/mL [facility] Albumin/Creatin ine Ratio 47(H) 0 - 29 mg/g creat [facility] Comment: Normal: 0 - 29 Moderately increased: 30 - 300 Severely increased: >300 09/13/2024 9:48 AM EDT 09/13/2024 Comment:UR Mustapha Lerma MD LAB URINE ORDERABLES Final Re sult Performing Organization Address [facility] de Phone Number [facility] [address] [place] [address] * Vitamin D 25 Hydroxy (09/13/2024 9:48 AM EDT) Vitamin D, 25-OH, Total 52.6 30.0 - 100.0 ng/mL [facility] Comment: Vitamin D deficiency has been defined by the [place] of Medicine and an Endocrine Society practice guideline as a level of serum 25-OH vitamin D less than 20 ng/mL (1,2). The Endocrine Society went on to further define vitamin D insufficiency as a level between 21 and 29 ng/mL (2). 1. IOM ([place] of Medicine). 2010. Dietary reference intakes for calcium and D. [place]: The National Academies Press. 2. Vandana MF, Himanshu NC, Karen BARNEY, et al. Evaluation, treatment, and prevention of vitamin D deficiency: an Endocrine Society clinical practice guideline. JCEM. 2010; 96(7):1911-30. 09/13/2024 9:48 AM EDT 09/13/2024 Comment:UR us Mustapha Lerma MD LAB BLOOD ORDERABLES Final Re sult [facility] [address] [place] [address] * Urinalysis with microscopic (09/13/2024 9:48 AM EDT) Specific [place], Urine 1.015 1.005 - 1.030 [facility] pH Urine 5.5 5.0 - 7.5 [facility] Color, Urine Yellow Yellow [facility] Appearance Urine Clear Clear [facility] [place] WBC Esterase Urine Negative Negative [facility] Protein, Ur Negative Negative/Tra ce [facility] Glucose, Ur Negative Negative [facility] Ketones, Urine Negative Negative [facility] [place] Blood Urine Negative Negative [facility] [phone] Bilirubin Urine Negative Negative [facility] [place] Urobilinogen Urine 0.2 0.2 - 1.0 mg/dL [facility] Nitrite, Urine Negative Negative [facility] [place] Microscopic Examination Comment [facility] [phone] Comment:Microscopic follows if indicated. Other Microsc. Observations See below: [facility] Comment:Microscopic was ronan cated and was performed. 09/13/2024 9:48 AM EDT 09/13/2024 Mustapha Lerma MD LAB URINE ORDERABLES Final Re sult [facility] [address] [place] [address] * (ABNORMAL) CBC (09/13/2024 9:48 AM EDT) WBC 8.8 3.4 - 10.8 x10E3/uL [facility] RBC 5.20 4.14 - 5.80 x10E6/uL [facility] Hemoglobin 10.8(L) 13.0 - 17.7 g/dL [facility] Hematocrit 36.6(L) 37.5 - 51.0 % [facility] MCV 70(L) 79 - 97 fL [facility] MCH 20.8(L) 26.6 - 33.0 pg [facility] MCHC 29.5(L) 31.5 - 35.7 g/dL [facility] RDW 18.9(H) 11.6 - 15.4 % [facility] Platelets 188 150 - 450 x10E3/uL [facility] 09/13/2024 9:48 AM EDT 09/13/2024 Mustapha Lerma MD LAB BLOOD ORDERABLES Final Re sult [facility] [address] [place] [address] * Urine Culture (09/13/2024 9:48 AM EDT) Culture Result, Urine Final report [facility] 09/13/2024 9:48 AM EDT 09/13/2024 Comment:UR Mustapha Lerma MD LAB URINE ORDERABLES Final Re sult Performing Organization Address [facility]/ZIP Co de Phone Number [facility] [address] [place] [address] * PTH, Intact (09/13/2024 9:48 AM EDT) PTH 33 15 - 65 pg/mL [facility] 09/13/2024 9:48 AM EDT 09/13/2024 Mustapha Lerma MD LAB BLOOD ORDERABLES Final Re sult Performing Organization Address [facility] Co de Phone Number [facility] [address] [place] [address] * Magnesium (09/13/2024 9:48 AM EDT) Magnesium 2.3 1.6 - 2.3 mg/dL [facility] 09/13/2024 9:48 AM EDT 09/13/2024 Comment:UR Mustapha Lerma MD LAB BLOOD ORDERABLES Final Re sult Performing Organization Address [facility] de Phone Number [facility] [address] [place] [address] * (ABNORMAL) Renal Function Panel (09/13/2024 9:48 AM EDT) Glucose 196(H) 70 - 99 mg/dL [facility] BUN 88(HH) 8 - 27 mg/dL [facility] Creatinine 3.36(H) 0.76 - 1.27 mg/dL [facility] eGFR CKD-EPI CR 2020 18(L) >59 mL/min/1.7 3 [facility] BUN/Creatinine Ratio 26(H) 10 - 24 [facility] Sodium 140 134 - 144 mmol/L [facility] Potassium 4.7 3.5 - 5.2 mmol/L [facility] Chloride 102 96 - 106 mmol/L [facility] Bicarbonate (CO2) 21 20 - 29 mmol/L [facility] Calcium 9.1 8.6 - 10.2 mg/dL [facility] Albumin 4.3 3.8 - 4.8 g/dL [facility] Phosphorus 3.3 2.8 - 4.1 mg/dL [facility] 09/13/2024 9:48 AM EDT 09/13/2024 Comment:UR Mustapha Lerma MD LAB BLOOD ORDERABLES Final Re sult [facility] [address] [place] [address] from Last 3 Months Insurance [facility] Member Subscriber Plan / Payer (Ef fective 2019-Present) Name:Jose Angel Denson Relation to Subscriber:Self Name:Jose Angel Denson Payer ID:Not on file Type:Not on file Address: [address] [id number] [place] [address] Medicare Care Teams Poured Pipe Maker Relationship Specialty Start Date End Date Chauncey Salmeron MD [facility] [address] [place] [address] [address] [place], [place] [facility] - General 03/27/20
--- OUTSIDE RECORDS SUMMARY | 2024-11-16 11:15 | XMS_ITS | Clinical Summary ---
Author Organization [address] [place] [address] [place] [phone] Phone Care Team Providers Care Newspaper Delivery Counselor Name Role Phone Chauncey Salmeron MD Primary Care Provider [phone] Allergies Active Allergy Reactions Criticality Noted Date [...] Do not crush, chew, or split. Active Farxiga 10 mg tablet Take 1 tablet (10 mg total) by mouth 1 (one) time each day. 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 Will refer to [facility] Pulmonary Hypertension clinic. Assessment & Plan (07/12/2024 [...] heart failure with p reserved ejection fraction (CMS/HCC V24, CMS/HCC V28) 03/25/2022 Assessment & Plan (08/16/2024 11:31 [...] daily about 3 months ago by his emblem drawer in. 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 Type 2 diabetes mellitus ([facility] V24, [facility] V 28) 09/16/2019 Bilateral carotid artery stenosis 05/11/2018 PAD (peripheral artery disease) ([facility] V24) Assessment & Plan (08/16/2024 11:31 AM [...] Most recently, the patient was seen at [facility] where he was reevaluated by electrophysiology [...] Encounters Date Type Department Care Team Description 11/12/2024 10:30 AM EDT Office Visit Vascular Surgery - [place] [address] [place] [address] Ron Maloney MD Bilateral carotid artery stenosis (Primary Dx); PAD (peripheral artery disease) ([facility] V24) 11/05/2024 9:05 AM EDT Ancillary Procedure [facility] Cardiology [facility] [address] [facility] [address] [place] [address] 10/06/2024 Telephone [facility] Structural Heart [address] [place] [address] Pily Mccall RN 09/28/2024 Telephone [facility] [address] [place] [address] Chauncey Salmeron MD 09/27/2024 10:45 AM EDT Ancillary Procedure [facility] [address] [place] [address] Bilateral carotid artery stenosis; History of right-sided carotid endarterectomy 09/20/2024 Telephone [facility] [address] [place] [address] Cycz, CHIARA Rodriguez 08/26/2024 Telephone [facility] [address] [place] [address] Cycz, CHIARA Rodriguez 08/16/2024 9:40 AM EDT Office Visit [facility] [address] [place] [address] Cycz, CHIARA Rodriguez Chronic heart failure with preserved ejection fraction (CMS/HCC V24, CMS/HCC V28) (Primary Dx); Longstanding persistent atrial fibrillation (CMS/HCC V24, CMS/HCC V28); Coronary artery disease involving [place] coronary artery of [place] heart without angina pectoris; Primary hypertension; S/P TAVR (transcatheter aortic valve replacement); Pure hypercholesterolemia; PAD (peripheral artery disease) (CMS/HCC V24); Pulmonary hypertension (CMS/HCC V24, CMS/HCC V28) from Last 3 Months Immunizations Name Administration Dates Next Due [employer] SARS-CoV-2 COVID -19, vector-nr, rS-Ad26, preservative free [...] PROCEDURE: HISTORICAL TONSILLECTOMY CARDIAC CATHETERIZATION DONE AT [facility] 07[facility]23[facility]24. INDICATIONS:Congestive Heart Failure Medical History Medical History Date Comments Rib fractures DX:Rib fractures CRF (chronic renal failure) 03/25/2022 DX:C RF (chronic renal failure) Diabetes mellitus type 2, no ninsulin dependent ([facility] V24, [facility] V28) DX:Diabetes melli tus type 2, noninsulin dependent ([facility]) Difficult airway for intubation DX:Difficult airway for intubation; COMMENT: Grade III view Gout DX:Gout HERNANDEZ on CPAP 03/25/2022 DX:HERNANDEZ on CPAP Prosthetic joint infection ( [facility] V24) DX:Prosthetic joint infectio n ([facility]) Right-sided extracranial car otid artery stenosis DX:Right-sided [...] 16 11/12/2024 10:20 AM EDT Oxygen Saturation 95% 08/16/2024 9:38 AM EDT Inhaled Oxygen Concentration - - Weight 95.7 kg (211 lb) 11/12/2024 10:20 AM EDT Height 180.3 cm (5' 11 ) 11/12/2024 10:20 AM EDT Body Mass Index 29.43 11/12/2024 10:20 AM EDT Plan of Treatment Upcoming Encounters Date Type Department Care Team (Late st Contact Info) Description 02/25/2025 9:30 AM EST Office Visit Vascular Surgery - [place] [address] [place] [address] Ron Maloney MD [address] [place] [phone] 05/12/2025 10:00 AM EST Ancillary Procedure [facility] [address] [facility] [address] [place] [address] Health Maintenance Due Date Last [...] this topic Medical Devices Implanted Type Area Ethylene Compressor Operator Device Identifier Shelf Expiration Date Model / Serial / Lot Abbt-Stju 1272 Assurity Mri(Tm) [id number] Implanted:07/2023 by Sid Toney MD (Quantity not on file) Cardiac Pacemaker Left: Chest [facility] 1272 ASSURITY MRI(TM) / [id number] / Abbt-Stju Assurity Mri [id number] Implanted:07/2023 (Quantity not on file) Cardiac Pacemaker [facility] ASS[employer] MRI 1272 / [id number] / Device Clsur Watchman Flx Pro Shannan 31mm Bsci-Prnt [id number] - [id number] Implanted:Qty : 1 on 09/25/2023 by Sid Toney MD Left: Heart Synup ESTELITA [id number] / [id number] / Description:Left atrial appe ndage closure device Procedures Procedure Name Priority Date/Time Associated Diagnosis Comments CARDIAC DEVICE CHECK- REMOTE- MURJ Routine 11/05/2024 9:04 AM EDT VAS US DUPLEX CAROTID BILATERAL Routine 09/27/2024 11:04 AM EDT Bilateral carotid artery stenosis History of right-sided carotid endarterectomy BASIC METABOLIC PANEL Routine 04/23/2024 10:47 AM EST from Last 3 Months or Most Recently Relevant to Health Maintenance Results * Cardiac device check - Remote- MURJ (11/05/2024 9:04 AM EDT) Date Time Interrogation Session [id number] CV DEVICE CHECK Type Interrogation Session Remote Scheduled CV DEVICE CHECK Implantable Pulse Generator Ethylene Compressor Operator [employer] CV DEVICE CHECK Implantable Pulse Generator Type IPG CV DEVICE CHECK Implantable Pulse Generator Model 1272 Assurity MRI(TM) CV DEVICE CHECK Implantable Pulse Generator Serial Number [id number] CV DEVICE CHECK Implantable Pulse Generator Implant Date 20230321 CV DEVICE CHECK Battery Remaining Percentage 90.00 CV DEVICE CHECK Battery Remaining Longevity 121.0 CV DEVICE CHECK Battery Voltage 3.010 CV D EVICE CHECK Battery [employer] DRAFTER Trigger 2.600 CV DEVICE CHECK Battery Status Middle of Service CV DEVICE CHECK Moo Statistic RV Percent Paced 92.00 CV DEVICE CHECK Lead Channel Sensing Intrinsic Amplitude 12.000 CV DEVICE CHECK Lead Channel Setting Sensing Sensitivity 2.00 CV DEVICE CHECK Lead Channel Impedance Value 300 CV DEVICE CHECK Lead Channel Pacing Threshold Amplitude 0.750 CV DEVICE CHECK Lead Channel Pacing Threshold Pulse Width 0.4 CV DEVICE CHECK Lead Channel RV Pacing Threshold Date 2024-10-28 CV DEVICE CHECK Lead Channel Setting Pacing Amplitude 1.000 CV DEVICE CHECK Lead Channel Setting Pacing Pulse Width 0.4 CV DEVICE CHECK Moo Setting Mode (NBG Code) VVIR CV DEVICE CHECK Moo Setting Lower Rate Limit 60 CV DEVICE CHECK Moo Setting Maximum Sensor Rate 120 CV DEVICE CHECK Date of Service 2024-11-05 CV DEVICE CHECK Anatomical Region Laterality Modality Device Interroga tion 10/28/2024 8:31 AM EDT Impressions 11/05/2024 8:59 AM EDT Normal Remote: No Events * Normal Device Function * Alerts or events: None * Battery: Battery is at 90%, 10.08 yrs * Sensing, impedance and thresholds reviewed * Programmed parameters reviewed * Presenting rhythm reviewed * Heart Rate Histograms reviewed * No significant changes noted Narrative Procedure Note Sid Toney MD - 11/05/2024 IMPRESSION: Normal Remote: No Events * Normal Device Function * Alerts or events: None * Battery: Battery is at 90%, 10.08 yrs * Sensing, impedance and thresholds reviewed * Programmed parameters reviewed * Presenting rhythm reviewed * Heart Rate Histograms reviewed * No significant changes noted us Sid Toney MD CV IMPLANTABLE CARDIAC DEVICE PROCEDURES Final Result * Vascular US duplex carotid bilateral (09/27/2024 [...] waveforms are biphasic. Vertebral flow is antegrade. Oncology Registrar Details A patel scale, color and doppler analysis ultrasound was performed. During the study longitudinal and transverse views were obtained. Continuous wave doppler and pulsed wave doppler was performed. Overall the study quality was poorly visualized. Study was technically difficult due to: acoustic shadowing. 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
== END 2024-11-16 10:27 | disposition home or self-care (01) ==
LOC: HO.HGS 09:56
PROVIDERS: PCP Internal Medicine
DX: K80.50 Calculus of bile duct without cholangitis or cholecystitis without obstruction (principal); K80.00 Calculus of gallbladder with acute cholecystitis without obstruction
CPT/HCPCS: 99214

== ENCOUNTER → 2024-11-16 09:55 | Outpatient (BNVA) | payer MEDICARE, OTHER, SELFPAY | PROVIDERS: PCP Internal Medicine | DX: K80.50 Calculus of bile duct without cholangitis or cholecystitis without obstruction (principal); K80.00 Calculus of gallbladder with acute cholecystitis without obstruction | CPT/HCPCS: 99212 ==

== ENCOUNTER 2024-12-22 11:46 | Day surgery (SDC) | payer MEDICARE, OTHER, SELFPAY ==
--- OUTSIDE RECORDS SUMMARY | 2024-12-07 16:13 | XMS_ITS | Clinical Summary ---
Author Organization [facility] Address [address] [place] [address] Phone Care Team Providers Care Teachers' Assistant Name Role Phone Chauncey Salmeron MD Primary Care Provider [phone] Allergies Active Allergy Reactions Criticality Noted Date Comments Sulfamethoxazole-Trimethoprim 2020 Cefazolin 03/25/2022 Lisinopril 03/25/2022 Oxycodone Other (see comments) 03/25/2022 Medications clopidogrel (PLAVIX) 75 MG tablet Take 1 tablet by mouth 1 (one) time each day 10/19/19 16 Active glipiZIDE (GLUCOTROL XL) 5 MG 24 hr tablet Take 1 tablet by mouth 1 (one) time each day Active pantoprazole (PROTONIX) 40 MG EC tablet Take 1 tablet by mouth 1 (one) time each day Active allopurinol (ZYLOPRIM) 100 MG tablet Take 200 mg by mouth 1 (one) time each day 07/24/19 21 Active atorvastatin (LIPITOR) 40 MG tablet Take 40 mg by mouth 1 (one) time each day in the evening 10/19/19 21 Active metoprolol succinate XL (TOPROL XL) 25 MG 24 hr tablet Take 1 tablet (25 mg total) by mouth 1 (one) time each day 30 tablet 3 01/24/20 22 Active furosemide (LASIX) 80 MG tablet Take 80 mg by mouth in the morning and 80 mg in the evening. 03/20/19 23 Active Aspirin Low Dose 81 MG EC tablet Take 81 mg by mouth 1 (one) time each day 03/20/19 23 Active isosorbide mononitrate (IMDUR) 30 MG 24 hr tablet Take 1 tablet (30 mg total) by mouth 1 (one) time each day 90 tablet 3 10/12/19 23 Active Dapagliflozin Propanediol (Farxiga) 10 MG tablet Take 10 mg by mouth 1 (one) time each day 90 tablet 2 04/28/19 24 Active Additional Information Patient not taking.Reported on 09/20/2024 apixaban (Eliquis) 2.5 MG tablet Take 2.5 mg by mouth in the morning and 2.5 mg in the evening. Active doxazosin (CARDURA) 4 MG tablet TAKE 1 TABLET BY MOUTH EVERY NIGHT. 90 tablet 3 03/21/19 25 Active hydrALAZINE 100 MG tablet TAKE 1 TABLET (100 MG TOTAL) BY MOUTH IN THE MORNING AND IN THE EVENING 180 tablet 3 12/02/19 25 Active hydrALAZINE 100 MG tablet TAKE 1 TABLET (100 MG TOTAL) BY MOUTH IN THE MORNING AND IN THE EVENING 180 tablet 3 11/24/19 24 025 Discontinued Active Problems Problem Noted Date Diagnosed Date [...] catheterization 03/25/2022 12/18/2022 Overview (12/18/2022): Done at [facility] on 03/19/22 with SAMARA - indications: CHF [...] bpm. We did keep patient on the playground monitor for a more prolonged period and [...] artery stenosis 07/18/2021 Overview (07/18/2021): done at [facility] Hypertension 12/22/2020 Acute nontraumatic kidney injury [...] Encounters Date Type Department Care Team Description 11/30/2024 Refill [facility] [address] [facility] [address] [place] [address] Mustapha Lerma MD 09/20/2024 2:45 PM EDT Office Visit [facility] [address] [place] [address] Mustapha Lerma MD Chronic kidney disease, stage 4 (severe) (HCC) (Primary Dx); Type 2 diabetes mellitus with diabetic chronic kidney disease (HCC); Renal osteodystrophy 09/13/2024 Orders Only [facility] [address] [place] [address] Mustapha Lerma MD from Last 3 Months [...] Visit [facility] [address] [place] [address] Mustapha Lerma MD [address] [facility] [address] [place] [phone] Health Maintenance Due Date Last Done Comments [...] (09/13/2024 9:48 AM EDT) Specimen Status Comment [facility] [place] Comment: Ambig Abbrev RP10 Default Ambig Abbrev RP10 Default A hand-written panel/profile was received from your office. In accordance with the [facility] Ambiguous Test Code Policy dated September 2002, we have completed your order by using the closest currently or formerly recognized AMA panel. We have assigned Renal Panel (10), Test Code #[id number] to this request. If this is not the testing you wished to receive on this specimen, please contact the [facility] Client Inquiry/Technical Services Department to clarify the test order. We appreciate your business. 09/13/2024 9:48 AM EDT 09/13/2024 Comment:UR Mustapha Lerma MD LAB BLOOD ORDERABLES Final Re sult [facility] [place] [address] [place] [address] * Result (09/13/2024 9:48 AM EDT) Result No growth [facility] [place] 09/13/2024 9:48 AM EDT 09/13/2024 Mustapha Lerma MD LAB MICROBIOLOGY - GENERAL OR DERABLES Final Result Performing Organization Address [facility] Co de Phone Number [facility] [place] [address] [place] [address] * Microscopic Examination (09/13/2024 9:48 AM EDT) WBC, Urine None seen 0 - 5 /hpf [facility] [place] RBC, Urine 0-2 0 - 2 /hpf [facility] Squamous Epithelial, Urine 0-10 0 - 10 /hpf [facility] Casts None seen None seen /lpf [facility] Bacteria, Urine None seen None seen/Few [facility] 09/13/2024 9:48 AM EDT 09/13/2024 Mustapha Lerma MD LAB MICROBIOLOGY - GENERAL OR DERABLES Final Result Performing Organization Address City/[facility]/ZIP Co de Phone Number [facility] [place] [address] [place] [address] * (ABNORMAL) Protein, Total, Random Urine w/Creatinine (Protein/Creat Ratio) (09/13/2024 9:48 AM EDT) Creatinine, Ur 77.5 Not Estab. mg/dL [facility] [place] Protein, Ur 16.0 Not Estab. mg/dL [facility] [place] Urine Protein/Creati nine Ratio 206(H) 0 - 200 mg/g creat [facility] [place] 09/13/2024 9:48 AM EDT 09/13/2024 Comment:UR Mustapha Lerma MD LAB URINE ORDERABLES Final Re sult Performing Organization Address [facility] Co de Phone Number [facility] [place] [address] [place] [address] * (ABNORMAL) Urine Albumin / Creatinine Ratio (09/13/2024 9:48 AM EDT) Albumin, Urine 36.1 Not Estab. ug/mL [facility] [place] Albumin/Creatin ine Ratio 47(H) 0 - 29 mg/g creat [facility] [place] Comment: Normal: 0 - 29 Moderately increased: 30 - 300 Severely increased: >300 09/13/2024 9:48 AM EDT 09/13/2024 Comment:UR Mustapha Lerma MD LAB URINE ORDERABLES Final Re sult Performing Organization Address City/[facility]/ZIP Co de Phone Number [facility] Condition [facility] [place] [address] [place] [address] * Vitamin D 25 Hydroxy (09/13/2024 9:48 AM EDT) Vitamin D, 25-OH, Total 52.6 30.0 - 100.0 ng/mL [facility] [place] Comment: Vitamin D deficiency has been defined by the [place] of Medicine and an Endocrine Society practice guideline as a level of serum 25-OH vitamin D less than 20 ng/mL (1,2). The Endocrine Society went on to further define vitamin D insufficiency as a level between 21 and 29 ng/mL (2). 1. IOM ([place] of Medicine). 2010. Dietary reference intakes for calcium and D. [place]: The National Academies Press. 2. Vandana MF, Himanshu JOINER, Karen BARNEY, et al. Evaluation, treatment, and prevention of vitamin D deficiency: an Endocrine Society clinical practice guideline. JCEM. 2010; 96(7):1911-30. 09/13/2024 9:48 AM EDT 09/13/2024 Comment:UR us Mustapha Lerma MD LAB BLOOD ORDERABLES Final Re sult [facility] [place] [address] [place] [address] * Urinalysis with microscopic (09/13/2024 9:48 AM EDT) Specific [place], Urine 1.015 1.005 - 1.030 [facility] [place] pH Urine 5.5 5.0 - 7.5 [facility] [place] Color, Urine Yellow Yellow [facility] [place] Appearance Urine Clear Clear [facility] [place] WBC Esterase Urine Negative Negative [facility] [place] Protein, Ur Negative Negative/Tra ce [facility] Glucose, Ur Negative Negative [facility] Ketones, Urine Negative Negative [facility] [place] Blood Urine Negative Negative [facility] [place] Bilirubin Urine Negative Negative [facility] [place] [phone] Urobilinogen Urine 0.2 0.2 - 1.0 mg/dL [facility] [place] Nitrite, Urine Negative Negative [facility] [place] Microscopic Examination Comment [facility] [place] Comment:Microscopic follows if indicated. Other Microsc. Observations See below: [facility] [place] [phone] Comment:Microscopic was ronan cated and was performed. 09/13/2024 9:48 AM EDT 09/13/2024 us Mustapha Lerma MD LAB URINE ORDERABLES Final Re sult [facility] [place] [address] [place] [address] * (ABNORMAL) CBC (09/13/2024 9:48 AM EDT) WBC 8.8 3.4 - 10.8 x10E3/uL [facility] RBC 5.20 4.14 - 5.80 x10E6/uL [facility] Hemoglobin 10.8(L) 13.0 - 17.7 g/dL [facility] Hematocrit 36.6(L) 37.5 - 51.0 % [facility] MCV 70(L) 79 - 97 fL [facility] MCH 20.8(L) 26.6 - 33.0 pg [facility] MCHC 29.5(L) 31.5 - 35.7 g/dL [facility] RDW 18.9(H) 11.6 - 15.4 % [facility] Platelets 188 150 - 450 x10E3/uL [facility] 09/13/2024 9:48 AM EDT 09/13/2024 Mustapha Lerma MD LAB BLOOD ORDERABLES Final Re sult Performing Organization Address [facility] Co de Phone Number [facility] [place] [address] [place] [address] * Urine Culture (09/13/2024 9:48 AM EDT) Culture Result, Urine Final report [facility] 09/13/2024 9:48 AM EDT 09/13/2024 Comment:UR Mustapha Lerma MD LAB URINE ORDERABLES Final Re sult Performing Organization Address [facility] de Phone Number [facility] [place] [address] [place] [address] * PTH, Intact (09/13/2024 9:48 AM EDT) PTH 33 15 - 65 pg/mL [facility] 09/13/2024 9:48 AM EDT 09/13/2024 Mustapha Lerma MD LAB BLOOD ORDERABLES Final Re sult Performing Organization Address [facility] de Phone Number [facility] [place] [address] [place] [address] * Magnesium (09/13/2024 9:48 AM EDT) Magnesium 2.3 1.6 - 2.3 mg/dL [facility] 09/13/2024 9:48 AM EDT 09/13/2024 Comment:UR Mustapha Lerma MD LAB BLOOD ORDERABLES Final Re sult Performing Organization Address City/[facility]/ZIP Co de Phone Number [facility] [address] [place] [address] * (ABNORMAL) Renal Function Panel (09/13/2024 9:48 AM EDT) Glucose 196(H) 70 - 99 mg/dL [facility] BUN 88(HH) 8 - 27 mg/dL [facility] Creatinine 3.36(H) 0.76 - 1.27 mg/dL [facility] eGFR CKD-EPI CR 2020 18(L) >59 mL/min/1.7 3 [facility] BUN/Creatinine Ratio 26(H) 10 - 24 [facility] Sodium 140 134 - 144 mmol/L [facility] Potassium 4.7 3.5 - 5.2 mmol/L [facility] Chloride 102 96 - 106 mmol/L [facility] Bicarbonate (CO2) 21 20 - 29 mmol/L [facility] Calcium 9.1 8.6 - 10.2 mg/dL [facility] Albumin 4.3 3.8 - 4.8 g/dL [facility] Phosphorus 3.3 2.8 - 4.1 mg/dL [facility] 09/13/2024 9:48 AM EDT 09/13/2024 Comment:UR Mustapha Lerma MD LAB BLOOD ORDERABLES Final Re sult [facility] [address] [place] [address] from Last [address] [place] [address] [place] [address] [place] [address] Medicare Care Teams Teachers' Assistant Relationship Specialty Start Date End Date Chauncey Salmeron MD [facility] [address] [place] [address] [place] [address] PCP - General 03/27/20
--- OUTSIDE RECORDS SUMMARY | 2024-12-07 16:13 | XMS_ITS | Clinical Summary ---
Author Organization [address] [place] [address] [place] [phone] Phone Care Team Providers Care Fusion Analyst Name Role Phone Chauncey Salmeron MD Primary Care Provider [phone] Allergies Active Allergy Reactions Criticality Noted Date Comments Cefazolin 03/25/2022 Lisinopril 09/17/2023 Sulfamethoxazole-Trimethopr im High 10/17/2021 Kidney related issues Per patient, affected his kidneys Medications furosemide (LASIX) 80 mg tablet Take 0.5 tablets (40 mg total) by mouth 2 (two) times a day. Active hydrALAZINE (APRESOLINE) 100 mg tablet Take [...] by mouth 1 (one) time each day. 5 Active atorvastatin (LIPITOR) 80 mg tablet TAKE 1 TABLET BY MOUTH EVERY DAY 90 tablet Active atorvastatin (LIPITOR) 80 mg tablet TAKE 1 TABLET BY MOUTH EVERY DAY. 4 12/02/19 25 Discontinued Active Problems Problem Noted Date Diagnosed Date Pulmonary hypertension (CMS/[facility] V24, CMS/[facility] V28 ) 07/12/2024 Assessment & Plan (11/26/2024 4:02 PM EDT): As noted above, patient has had a consultation with advanced heart failure specialist for pulmonary hypertension. He was started on Farxiga 10 mg daily as well as advised to continue furosemide 40 mg twice daily. He is euvolemic on exam today with no new or worsening symptoms reported. 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 Will refer to [facility] Pulmonary Hypertension clinic. Assessment & Plan [...] valve replacement ) 04/07/2024 Assessment & Plan (11/26/2024 4:02 PM EDT): The patient has history of aortic stenosis status post TAVR May [address] Sales. Echocardiogram from April 2024 showing that the bioprosthetic aortic valve is functioning normally with only trace aortic valve insufficiency. Will continue with monitoring. He will continue to utilize antibiotics prior to dental cleanings and/or procedures. He continues on aspirin 81 mg daily. Orders: Transthoracic echocardiogram (TTE) complete with PRN contrast, bubble, strain, and 3D order panel; Future perflutren lipid microsphere (DEFINITY) 1.3 mL in sodium chloride 0.9% 8.7 mL injection Assessment & Plan (08/16/2024 11:31 AM EDT): [...] V24, CMS/HCC V28) 03/25/2022 Assessment & Plan (11/26/2024 4:02 PM EDT): Has a history of HFpEF as well as CKD, he is currently following closely with Dr. Lerma. He was recently evaluated by Dr. Crawley due to his pulmonary hypertension; and was started on SGLT2 inhibitor. He is currently euvolemic on exam with no symptoms of shortness of breath or chest discomfort. Will continue on current dose of diuretic and close renal follow up. 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 He does continue on aspirin 81 mg daily. Assessment & Plan (08/16/2024 11:31 AM EDT): [...] (coronary artery disease) 09/16/2019 Assessment & Plan (11/26/2024 4:02 PM EDT): The patient has a history [...] The SVG graft to D1 is occluded. The decision was made for the patient to continue on medical management to a lack of anginal symptoms. He continues to be active without any anginal symptoms. He will continue on medical management with aspirin and atorvastatin. Assessment & Plan (08/16/2024 11:31 AM EDT): [...] disease status post CABG x 5 in 2017. Currently, he denies any episodes of chest [...] kidney disease (CKD) , stage III (moderate) ([facility] V24, [facility] V28) 09/16/2019 Hyperlipidemia 09/16/2019 Assessment & Plan (11/26/2024 4:02 PM EDT): He continues on atorvastatin 80 mg daily. Assessment & Plan (08/16/2024 11:31 AM EDT): Continue with atorvastatin. Assessment & Plan (07/12/2024 12:42 PM EDT): The patient has a history of hyperlipidemia. He is currently on atorvastatin 80 mg daily. Will continue his current therapy. Hypertension 09/16/2019 Assessment & Plan (11/26/2024 4:02 PM EDT): The patient's blood pressure is well-controlled today, continue on hydralazine as ordered. Assessment & Plan (08/16/2024 11:31 AM EDT): [...] have been well-controlled. Type 2 diabetes mellitus ([facility] V24, [facility] V 28) 09/16/2019 Bilateral carotid artery stenosis 05/11/2018 PAD (peripheral artery disease) ([facility] V24) Assessment & Plan (08/16/2024 11:31 AM [...] Most recently, the patient was seen at [facility] where he was reevaluated by electrophysiology [...] follow-up with either Dr. Sales or Dr. Morrison to continue the TAVR work-up. I advised that myself or this office will be in contact with him. Encounters Date Type Department Care Team Description 12/01/[address] [facility] [address] [facility] [facility] [address] [place] [address] Laura Russ NP 11/26/2024 1:[address] [facility] [address] [facility] [address] [place] [address] Laura Russ NP Pre-op exam (Primary Dx); Chronic heart failure with preserved ejection fraction (CMS/HCC V24, CMS/HCC V28); Coronary artery disease involving yuhaaviatam coronary artery of yuhaaviatam heart without angina pectoris; Pulmonary hypertension (CMS/HCC V24, CMS/HCC V28); Atrial fibrillation, unspecified type (CMS/HCC V24, CMS/HCC V28); S/P TAVR (transcatheter aortic valve replacement); Pure hypercholesterolemia; Primary hypertension 11/22/[address] [facility] [address] [facility] [address] [place] [address] Jewel Ruggiero MD 11/16/[address] [facility] [address] [facility] [facility] [address] [place] [address] Jewel Ruggiero MD 11/12/2024 10:30 AM EDT Office Visit [facility] - [place] [address] [place] [address] Ron Maloney MD Bilateral carotid artery stenosis (Primary Dx); PAD (peripheral artery disease) ([facility] V24) 11/05/2024 9:05 AM EDT Ancillary Procedure [facility] - [address] [place] [phone] 10/06/[address] [facility] Structural Heart [address] [place] [address] Pily Mccall RN 09/28/[address] [facility] [address] [place] [address] Chauncey Salmeron MD 09/27/2024 10:45 AM EDT Ancillary Procedure [facility] Cardiology [facility] - [address] [place] [address] Bilateral carotid artery stenosis; History of right-sided carotid endarterectomy 09/20/2024 Telephone [facility] [address] [place] [address] Michael Swan NP from Last 3 Months Immunizations Name Administration Dates Next Due [employer] SARS-CoV-2 COVID -19, vector-nr, rS-Ad26, preservative free [...] PROCEDURE: HISTORICAL TONSILLECTOMY CARDIAC CATHETERIZATION DONE AT [facility] ON 07/23/24. INDICATIONS:Congestive Heart Failure Medical History Medical History Date Comments Rib fractures DX:Rib fractures CRF (chronic renal failure) 03/25/2022 DX:C RF (chronic renal failure) Diabetes mellitus type 2, no ninsulin dependent ([facility] V24, CMS/HCC V28) DX:Diabetes melli tus type 2, noninsulin dependent ([facility]) Difficult airway for intubation DX:Difficult airway for intubation; COMMENT: Grade III view Gout DX:Gout HERNANDEZ on CPAP 03/25/2022 DX:HERNANDEZ on CPAP Prosthetic joint infection ( [facility] V24) 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 DX:Right-sided [...] Sign Reading Time Taken Comments Blood Pressure 136/64 11/26/2024 1:31 PM EDT Pulse 60 11/26/2024 1:31 PM EDT Temperature - - Respiratory Rate 16 11/12/2024 10:20 AM EDT Oxygen Saturation 92% 11/26/2024 1:31 PM EDT Inhaled Oxygen Concentration - - Weight 98 kg (216 lb) 11/26/2024 1:31 PM EDT Height 180.3 cm (5' 11 ) 11/26/2024 1:31 PM EDT Body Mass Index 30.13 11/26/2024 1:31 PM EDT Plan of Treatment Upcoming Encounters Date Type Department Care Team (Late st Contact Info) Description 01/12/2025 10:00 AM EDT Appointment [facility] CT Scan [address] [place] [phone] 02/25/2025 9:30 AM EST Office Visit [facility] - [place] [address] [place] [phone] Ron Maloney MD [address] [place] [phone] 04/05/2025 8:50 AM EST Office Visit [facility] [address] [facility] [address] [place] [phone] Jewel Ruggiero MD [address] [place] [address] [address] [place] [phone] 05/12/2025 10:00 AM EST Ancillary Procedure [facility] - [address] [place] [address] 05/26/2025 11:00 AM EDT Ancillary Procedure [facility] - [address] [place] [address] Health Maintenance Due Date Last Done Comments [...] this topic Medical Devices Implanted Type Area Police Detention Attendant Device Identifier Shelf Expiration Date Model / Serial / Lot Abbt-Stju 1272 Assurity Mri(Tm) [id number] Implanted:07/2023 by Sid Toney MD (Quantity not on file) Cardiac Pacemaker Left: Chest [facility] 1272 ASSURITY MRI(TM) / [id number] / Abbt-Stju Assurity Mri [id number] Implanted:07/2023 (Quantity not on file) Cardiac Pacemaker [facility] [employer] MRI 1272 / [id number] / Device Clsur Watchman Flx Pro Shannan 31mm Bsci-Prnt [id number] - [id number] Implanted:Qty : 1 on 09/25/2023 by Sid Toney MD Left: Heart [employer] ESTELITA [id number] / [id number] / Description:Left atrial appe ndage closure device Procedures Procedure Name Priority Date/Time Associated Diagnosis Comments ECG 12-LEAD Routine 11/26/2024 1:50 PM EDT Pre-op exam CARDIAC DEVICE CHECK- REMOTE- MURJ Routine 11/05/2024 9:04 AM EDT VAS US DUPLEX CAROTID BILATERAL Routine 09/27/2024 11:04 AM EDT Bilateral carotid artery stenosis History of right-sided carotid endarterectomy BASIC METABOLIC PANEL Routine 04/23/2024 10:47 AM EST from Last 3 Months or Most Recently Relevant to Health Maintenance Results * ECG 12 lead (11/26/2024 1:50 PM EDT) Ventricular Rate ECG 60 BPM GEMUSE Atrial Rate 59 BPM GEMUSE QRS Duration 176 ms GEMUSE Q-T Interval 508 ms GEMUSE QTc 508 ms GEMUSE R [place] 141 degrees GEMUSE T [place] 6 degrees GEMUSE ECG Interpretation Ventricular-pa ashlee rhythm Abnormal ECG When compared with ECG of 07-APR-2024 15:08, No significant change was found Confirmed by AMILCAR MORRISON ([id number]) on 12/06/2024 9:09:57 AM GEMUSE 11/26/2024 1:45 PM EDT 12/06/2024 9:09 AM EDT us Laura Russ NP ECG ORDERABLES Edited Result - Final GEMUSE * Cardiac device check - Remote- MURJ (11/05/2024 9:04 AM EDT) Date Time Interrogation Session [id number] CV DEVICE CHECK Type Interrogation Session Remote Scheduled CV DEVICE CHECK Implantable Pulse Generator Police Detention Attendant [employer] CV DEVICE CHECK Implantable Pulse Generator Type IPG CV DEVICE CHECK Implantable Pulse Generator Model 1272 Assurity MRI(TM) CV DEVICE CHECK Implantable Pulse Generator Serial Number [id number] CV DEVICE CHECK Implantable Pulse Generator Implant Date [id number] CV DEVICE CHECK Battery Remaining Percentage 90.00 CV DEVICE CHECK Battery Remaining Longevity 121.0 CV DEVICE CHECK Battery Voltage 3.010 CV D EVICE CHECK Battery POT LINER Trigger 2.600 CV DEVICE CHECK Battery Status [...] waveforms are biphasic. Vertebral flow is antegrade. 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
--- OUTSIDE RECORDS SUMMARY | 2024-12-07 16:13 | XMS_ITS | Clinical Summary ---
Author Organization [facility] Address [address] [place] [address] Care Team Providers Care Core Paster Name Role Phone Chauncey Salmeron MD Primary Care Provider [phone] Allergies Active Allergy Reactions Criticality Noted Date [...] this topic Medical Devices Implanted Type Area Mortgage Protection Sales Device Identifier Shelf Expiration Date Model / Serial / Lot Device Clsur Watchman Flx Pro Shannan 31mm Bsci-Prnt [id number] - [id number] Implanted:Qty: 1 on 09/25/2023 by Sid Toney MD at [facility] Left: Heart [employer] ESTELITA [id number] / [id number] / Description:Left atrial appe ndage closure device Advance Directives For more information, please contact: [phone] Latest Code Status on File Code Status Date Activated Date Inactivated Comments Full Code 09/25/2023 11:28 AM 09/25/2023 11:04 PM Thi s code status was ascertained in the following way: discussion with patient . Care Teams Core Paster Relationship Specialty Start Date End Date Chauncey Salmeron MD [address] [facility] [address] [place] [address] PCP - General Geriatric Medicine 09/24/23
[2024-12-14 08:51] VITALS: BMI 30.1
--- NOTE | 2024-12-15 09:58 | HO.ANESPROP2 ---
Documented by User: Jacquelyn Gannon NP 12/15/24 10:18 HPI - Anesthesia Eval Consult details Narrative: 79yo M for Cholecystectomy Laparoscopic, POSSIBLE OPEN Cardiac optimized. Follows [facility] for: coronary artery disease status post CABG x5 in 2017 (MENDEZ to LAD, SVG to PDA, SVG to RCA, SVG to OM1, SVG to D1), severe aortic stenosis status post TAVR (May 2022 at [facility] with [address]. Sales), longstanding persistent atrial fibrillation status post watchman on 09/25/2023 (previously on warfarin), sick sinus syndrome status post pacemaker placement (March 2023?[facility]?Dr. Toney) heart failure with preserved ejection fraction, arterial hypertension Per 11/2024 preop visit - pt is active with yardwork and has no exertional symptoms Eval'd 09/2024 at [facility] HF specialty clinic for pulmo htn s/p RHC 07/2024. Added Farxiga. Not a candidate for CardioMEMs d/t CKD CKD stage IV (followed by Dr. Lerma), Stable at 09/2024 office visit. Creat range 2.6-3.6 from 2022 to 2024 diabetes mellitus type II, HERNANDEZ on CPAP therapy, Carotid artery stenosis s/p R CEA 2015. Followed by [facility], and peripheral artery disease status post left leg angioplasty in August [address] Price. Per 10/2024, remains asymptomatic and no intervention warranted at this time. Continued obs with planned CTA PMFSH Active Problems Active Problems: All Active Problems Cholelithiasis (Acute) Recurrent biliary colic (Acute) Class 1 obesity (Acute) Cellulitis (Acute) Past Medical History Medical History Pulmonary hypertension PAD (peripheral artery disease) Non-pressure chronic ulcer left lower leg, limited to breakdown skin Laceration of left lower leg without complication Atrial fibrillation Hx of cardiac pacemaker CKD (chronic kidney disease) stage 4, GFR 15-29 ml/min AV block, 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 CKD (chronic kidney disease), stage III Peripheral arterial occlusive disease Arthritis GERD (gastroesophageal reflux disease) BPH (benign prostatic hyperplasia) Gout Diabetes CHF (congestive heart failure) HTN (hypertension) Elevated cholesterol CAD (coronary artery disease) Family History Family history of problems with anesthesia: No Surgical History Surgical History S/P TAVR (transcatheter aortic valve replacement) Hx of CABG Hx of angioplasty History of bilateral total hip arthroplasty History of carotid endarterectomy Hx of coronary angioplasty History of Problems with Anesthesia: No Social History Social History Household Members: Spouse and Other Household Members Other:: [facility] Housing: House Are you a primary vp care management to a significant other at home: No Do you presently have visiting nurse or other home services: No Patient Tobacco Use Status: Never used Tobacco Use of substances other than those prescribed or required for medical reasons: No Have you been hit, kicked, punched, or otherwise hurt by someone within the past year? If so, by whom?: No Are you DNR?: No Advance Directives: No Advance Directives Information Provided: Yes Poor oral hygiene: No service: No Meds Allergies Allergy/AdvReac Type Severity Reaction Status Date / Time cefazolin Allergy Unknown Verified 12/22/24 13:22 lisinopril Allergy Unknown Verified 12/22/24 13:22 sulfamethoxazole (From Allergy Affected Verified 12/22/24 13:22 Bactrim) Kidneys trimethoprim (From Bactrim) Allergy Affected Verified 12/22/24 13:22 Kidneys Home Medications ?Medication ?Instructions ?Recorded ?Confirmed ?Last Taken ?Type allopurinol 100 mg tablet 200 mg PO DAILY 11/27/20 12/22/24 10/28/24 History atorvastatin 40 mg tablet 80 mg PO BEDTIME 11/27/20 12/22/24 10/28/24 History doxazosin 4 mg tablet 4 mg PO BEDTIME 11/27/20 12/22/24 10/28/24 History furosemide 20 mg tablet 40 mg PO BID 11/27/20 12/22/24 10/28/24 History glipizide 5 mg tablet 5 mg PO DAILY 11/27/20 12/22/24 10/28/24 History aspirin 81 mg tablet 81 mg PO DAILY 10/29/24 12/22/24 12/21/24 History dapagliflozin propanediol 10 mg 10 mg PO DAILY 10/29/24 12/22/24 12/18/24 History tablet (Farxiga) hydralazine 100 mg tablet 100 mg PO BID 10/29/24 12/22/24 10/28/24 History ascorbic acid (vitamin C) 500 mg 500 mg PO DAILY 12/14/24 12/22/24 Unknown History capsule levocetirizine 5 mg tablet 5 mg PO BEDTIME 12/14/24 12/22/24 Unknown History multivitamin 1 tab PO DAILY 12/14/24 12/22/24 Unknown History Exam Height,Weight and Vital Signs: Height 5 ft 11 in Weight 98 kg Narrative Narrative: EKG 11/2024 Ventricular Rate ECG BPM 60 Atrial Rate BPM 59 QRS Duration ms 176 Q-T Interval ms 508 QTc ms 508 R [place] degrees 141 T [place] degrees 6 ECG Interpretation Ventricular-paced rhythm Abnormal ECG When compared with ECG of 07-APR-2024 15:08, No significant change was found Confirmed by AMILCAR MORRISON ([id number]) on 12/06/2024 9:09:57 AM Pacer Interrogation 10/2024 IMPRESSION: Normal Remote: No Events * Normal Device Function * Alerts or events: None * Battery: Battery is at 90%, 10.08 yrs * Sensing, impedance and thresholds reviewed * Programmed parameters reviewed * Presenting rhythm reviewed * Heart Rate Histograms reviewed * No significant changes noted ECHO 04/2024 ? LV wall thickness is increased at about 14 mm. There is concentric LVH. Global function is normal with an EF of 50 to 55%. Hypo-? akinesis of the middle of the interventricular septum and down towards the apex. No other obvious wall motion abnormalities are seen on limited views. Some of the septal abnormality may be due to RV pacing and postoperative state. ? The right ventricular diameter is slightly increased. Function appears to be normal as seen on limited views. ? There is a bioprosthetic valve in place with a mean gradient of 13 and a VTI ratio of about 0.44. I do not have any acceleration time available. I measured and acceleration time of 84 ms ? Both atria are moderately dilated. ? There is trace mitral regurgitation. Mild tricuspid regurgitation with elevated PA systolic pressure. ? Severely elevated right ventricular systolic pressure. PA systolic pressure at least 70 mmHg. Carotid Duplex US 09/2024 ? Right ICA: There is mild heterogeneous plaque. ? Left ICA: There is moderate heterogeneous plaque. ? RIGHT. 1. There is atherosclerotic plaque in the carotid system as noted above. 2. There is greater than 70% stenosis in the internal carotid artery based on Doppler velocity. 3. The subclavian artery has turbulent Doppler flow pattern which may indicate proximal stenosis. 4. Vertebral artery has normal antegrade flow. ? LEFT. 1. There is atherosclerotic plaque in the carotid system as noted above. 2. There is greater than 70% stenosis in the internal carotid artery based on Doppler velocity. 3. The subclavian artery has normal Doppler flow pattern. 4. Vertebral artery has normal antegrade flow. Right Heart Cath 07/2024 RHC 07/23/24: RA 12, RV 69/6 RVEDP 12mmHg, PA 69/23 mean 40mmHg,?PCWP 23mmHg with v-waves to 37mmHg Assessment and Plan Final Anesthetic Review Family History of Problems with Anesthesia: No History of Problems with Anesthesia: No Documented by User: Sania Kelley NP 12/21/24 11:39 [facility] Past Medical History Medical History Pulmonary hypertension PAD (peripheral artery disease) Non-pressure chronic ulcer left lower leg, limited to breakdown skin Laceration of left lower leg without complication Atrial fibrillation Hx of cardiac pacemaker CKD (chronic kidney disease) stage 4, GFR 15-29 ml/min AV block, 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 CKD (chronic kidney disease), stage III Peripheral arterial occlusive disease Arthritis GERD (gastroesophageal reflux disease) BPH (benign prostatic hyperplasia) Gout Diabetes CHF (congestive heart failure) HTN (hypertension) Elevated cholesterol CAD (coronary artery disease) Surgical History Surgical History S/P TAVR (transcatheter aortic valve replacement) Hx of CABG Hx of angioplasty History of bilateral total hip arthroplasty History of carotid endarterectomy Hx of coronary angioplasty Social History Social History Household Members: Spouse and Other Household Members Other:: [facility] Housing: House Are you a primary vp care management to a significant other at home: No Do you presently have visiting nurse or other home services: No Patient Tobacco Use Status: Never used Tobacco Use of substances other than those prescribed or required for medical reasons: No Have you been hit, kicked, punched, or otherwise hurt by someone within the past year? If so, by whom?: No Are you DNR?: No Advance Directives: No Advance Directives Information Provided: Yes Poor oral hygiene: No service: No Meds Allergies Allergy/AdvReac Type Severity Reaction Status Date / Time cefazolin Allergy Unknown Verified 12/22/24 13:22 lisinopril Allergy Unknown Verified 12/22/24 13:22 sulfamethoxazole (From Allergy Affected Verified 12/22/24 13:22 Bactrim) Kidneys trimethoprim (From Bactrim) Allergy Affected Verified 12/22/24 13:22 Kidneys Home Medications ?Medication ?Instructions ?Recorded ?Confirmed ?Last Taken ?Type allopurinol 100 mg tablet 200 mg PO DAILY 11/27/20 12/22/24 10/28/24 History atorvastatin 40 mg tablet 80 mg PO BEDTIME 11/27/20 12/22/24 10/28/24 History doxazosin 4 mg tablet 4 mg PO BEDTIME 11/27/20 12/22/24 10/28/24 History furosemide 20 mg tablet 40 mg PO BID 11/27/20 12/22/24 10/28/24 History glipizide 5 mg tablet 5 mg PO DAILY 11/27/20 12/22/24 10/28/24 History aspirin 81 mg tablet 81 mg PO DAILY 10/29/24 12/22/24 12/21/24 History dapagliflozin propanediol 10 mg 10 mg PO DAILY 10/29/24 12/22/24 12/18/24 History tablet (Farxiga) hydralazine 100 mg tablet 100 mg PO BID 10/29/24 12/22/24 10/28/24 History ascorbic acid (vitamin C) 500 mg 500 mg PO DAILY 12/14/24 12/22/24 Unknown History capsule levocetirizine 5 mg tablet 5 mg PO BEDTIME 12/14/24 12/22/24 Unknown History multivitamin 1 tab PO DAILY 12/14/24 12/22/24 Unknown History Exam Pertinent Lab Results Pertinent Lab Results: Laboratory Tests 10/31/24 08:36 WBC 7.1 RBC 5.51 Hgb 11.5 L Hct 36.3 L Plt Count 108 L Sodium 142 Potassium 4.2 BUN 65 H Creatinine 3.00 H Documented by User: Grace Cade MD 12/22/24 13:36 PMFSH Past Medical History Medical History Pulmonary hypertension PAD (peripheral artery disease) Non-pressure chronic ulcer left lower leg, limited to breakdown skin Laceration of left lower leg without complication Atrial fibrillation Hx of cardiac pacemaker CKD (chronic kidney disease) stage 4, GFR 15-29 ml/min AV block, 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 CKD (chronic kidney disease), stage III Peripheral arterial occlusive disease Arthritis GERD (gastroesophageal reflux disease) BPH (benign prostatic hyperplasia) Gout Diabetes CHF (congestive heart failure) HTN (hypertension) Elevated cholesterol CAD (coronary artery disease) Surgical History Surgical History S/P TAVR (transcatheter aortic valve replacement) Hx of CABG Hx of angioplasty History of bilateral total hip arthroplasty History of carotid endarterectomy Hx of coronary angioplasty Social History Social History Household Members: Spouse and Other Household Members Other:: [facility] Housing: House Are you a primary vp care management to a significant other at home: No Do you presently have visiting nurse or other home services: No Patient Tobacco Use Status: Never used Tobacco Use of substances other than those prescribed or required for medical reasons: No Have you been hit, kicked, punched, or otherwise hurt by someone within the past year? If so, by whom?: No Are you DNR?: No Advance Directives: No Advance Directives Information Provided: Yes Poor oral hygiene: No service: No Meds Allergies Allergy/AdvReac Type Severity Reaction Status Date / Time cefazolin Allergy Unknown Verified 12/22/24 13:22 lisinopril Allergy Unknown Verified 12/22/24 13:22 sulfamethoxazole (From Allergy Affected Verified 12/22/24 13:22 Bactrim) Kidneys trimethoprim (From Bactrim) Allergy Affected Verified 12/22/24 13:22 Kidneys Home Medications ?Medication ?Instructions ?Recorded ?Confirmed ?Last Taken ?Type allopurinol 100 mg tablet 200 mg PO DAILY 11/27/20 12/22/24 10/28/24 History atorvastatin 40 mg tablet 80 mg PO BEDTIME 11/27/20 12/22/24 10/28/24 History doxazosin 4 mg tablet 4 mg PO BEDTIME 11/27/20 12/22/24 10/28/24 History furosemide 20 mg tablet 40 mg PO BID 11/27/20 12/22/24 10/28/24 History glipizide 5 mg tablet 5 mg PO DAILY 11/27/20 12/22/24 10/28/24 History aspirin 81 mg tablet 81 mg PO DAILY 10/29/24 12/22/24 12/21/24 History dapagliflozin propanediol 10 mg 10 mg PO DAILY 10/29/24 12/22/24 12/18/24 History tablet (Farxiga) hydralazine 100 mg tablet 100 mg PO BID 10/29/24 12/22/24 10/28/24 History ascorbic acid (vitamin C) 500 mg 500 mg PO DAILY 12/14/24 12/22/24 Unknown History capsule levocetirizine 5 mg tablet 5 mg PO BEDTIME 12/14/24 12/22/24 Unknown History multivitamin 1 tab PO DAILY 12/14/24 12/22/24 Unknown History Exam Airway Mallampati Class: III TM Dist: <=3cm Neck ROM: Limited Denture: Upper Heart: rrr Lungs: cta Assessment and Plan Assessment Anesthesia Assessment: Anesthesia Plan Discussed and Chart Reviewed Final Anesthetic Review NPO: Yes ASA Class: III Final Preanesthetic Review: No Changes in Pt Med Stat, Meds/Allgs Chart Reviewed, Consent Obtained/Reviewed and Anes Risks/Benef Reviewed Patient Risk: High Procedure Risk: Intermediate Anesthetic Plan Anesthetic Plan: GA and Agree w/ Assess. and Plan Disposition: Standard PACU
[2024-12-22 12:30] VITALS: BP 132/83; PULSE 60; RESP 14; TEMP 36.2; O2SAT 95; BMI 29.2
[2024-12-22 12:52] LABS: Glucose, Whole Blood 145 mg/dL (60-115)
--- NOTE | 2024-12-22 12:57 | MHC.SHP ---
Pre-Procedural Eval Section A - 24 Hr Update-Section A only Date of Service: 12/22/24 The patient is an INPATIENT: No Changes since office visit: Yes Patient answered all questions; No Cold of Flu in the past 2 weeks, No New Medical Problems and No Changes in Medication The patient has been examined within 24 hours of the surgical procedure. The History & Physical has been completed within 30 days and I have reviewed it.: No Section B - Complete if H&P > 30 days Chief Complaint: Calculus of bile duct without cholangitis or brian Details of Present Illness: Patient reports no ongoing abdominal pain at this time Relevant Family History (Specify if Yes): No Relevant Social History: None Present Medications: see Short Stay Collaborative assessment Medical History: Significant History (AFib with Watchman) History of Previous Operations: No relevant previous surgery Allergies: Allergies Allergy/AdvReac Type Severity Reaction Status Date / Time cefazolin Allergy Unknown Verified 12/14/24 08:53 lisinopril Allergy Unknown Verified 12/14/24 08:53 sulfamethoxazole (From Allergy Affected Verified 11/16/24 10:08 Bactrim) Kidneys trimethoprim (From Bactrim) Allergy Affected Verified 11/16/24 10:08 Kidneys Review of Systems Sugical H&P ROS: Negative: Constitution, Cardiovascular, Respiratory, Neurological, Psychiatric, Hem-Onc, Allergic/Immunologic, Gastrointestinal, Genitourinary, Musculoskeletal and Integumentary Exam Surgical H&P Exam: Normal: HEENT, Normal: Heart, Normal: Lungs, Normal: Extremities, Normal: Abdomen and Normal: Skin Plan Diagnosis/Plan: Unchanged I have reviewed the history and physical and performed a pertinent physical examination on my patient. No changes have occurred unless specified. Time Spent With Patient Time: Total time managing care of this patient today ____ minutes.
[2024-12-22 13:01] LABS: Hematocrit 38.6 % (42.0-52.0); Hemoglobin 12.2 g/dl (14.0-18.0); Mean Corpuscular HGB Conc 31.6 g/dl (31.0-36.0); Mean Corpuscular Hemoglobin 21.4 pg (27.0-33.0); Mean Corpuscular Volume 67.7 fL (80.0-98.0); NRBC Abs Auto 0.000 X10*3/uL (0.0-0.012); NRBC Pct Auto 0.0 /100WBC (0.0-0.2); Platelet Count 120 X10*3/uL (160-400); Red Blood Count 5.70 X10*6/uL (4.60-5.80); White Blood Count 9.8 X10*3/uL (4.8-10.8)
[2024-12-22 13:15] LABS: Anion Gap 13 (12-20); Blood Urea Nitrogen 92 mg/dL (9-16); Calcium 9.2 mg/dL (8.4-10.2); Carbon Dioxide 26 mmol/L (22-29); Chloride 112 mmol/L (96-108); Creatinine Clr Calc Pharmacy 26.6; Estimated Glomerular Filt Rate 23; Potassium 4.8 mmol/L (3.3-5.1); Sodium 146 mmol/L (135-145)
[2024-12-22] MEDS: Lactated Ringers 1,000 ML 50 ML IVCONT (13:16)
--- NOTE | 2024-12-22 15:42 | P.OP_ITS ---
Operative Note Operative Note Date of Service: 12/22/24 Narrative: Preoperative diagnosis: Acute cholecystitis, cholelithiasis Postoperative diagnosis: Same Procedure: Laparoscopic cholecystectomy Surgeon: Sid Oliver MD Robotics Technologist: Ginna Navarro PA-C; Fidel Rankin PA-C, BRUNA Chamberlain Anesthesia: General endotracheal Indications for procedure: 71-year-old male patient presenting with a recent episode of right upper quadrant abdominal pain found to have tenderness in the right upper quadrant with a positive York sign. CT abdomen and pelvis confirmed acute cholecystitis due to cholelithiasis. His pain subsequently subsided and he was discharged to home. He presents now for an elective laparoscopic cholecystectomy. Operative findings: Marked adhesions to the gallbladder from transverse colon mesentery and omentum with evidence of both acute and chronic cholecystitis due to cholelithiasis. Specimen: gallbladder Estimated blood loss: 50 mL Complications: None Procedure details: Patient was brought to the OR and placed in a supine positio n. After administering general anesthesia the patient's abdomen was prepped with ChloraPrep and draped in a sterile fashion. A surgical time-out was called the consent confirmed. Patient received preoperative antibiotics and Venodyne boots were in place. Local anesthesia consisting of 0.5% Sensorcaine without epinephrine was infiltrated in a periumbilical region. A 5 mm incision was made above the umbilicus in a transverse fashion. The Veress needle was then inserted while elevating abdominal cavity with towel clips. After positive drop test the abdomen was insufflated to a pressure of 15 mm of mercury. The Veress needle was then removed and a 5 mm trocar inserted. The camera was inserted in the abdomen explored. A 12 mm trocar was then placed in the epigastrium. Two 5 mm trocars placed in the right upper quadrant by the horticultural nursery assistant. The patient was placed in reverse Trendelenburg positioning and rotated to the left. The gallbladder was grasped with the fundus and retracted cephalad by the horticultural nursery assistant. The infundibulum was then grasped and retracted away from the liver bed, also by the horticultural nursery assistant. The Dolphin dissected was then used by the surgeon to dissect the peritoneum off the infundibulum to reveal the junction with the cystic duct. Cystic artery was noted slightly medial and posterior to the cystic duct. After obtaining a critical view the cystic duct was doubly clipped and divided. The cystic artery was then doubly clipped and divided. The gallbladder was then dissected off the liver bed using electrocautery with an L hook. Hemostasis was assured all times using the electrocautery. When the gallbladder is completely dissected off the liver bed was placed in an Endo-Catch bag and brought out through the epigastric incision. The gallbladder was sent to pathology for further examination. The abdomen was then re-examined. The liver bed was irrigated and suctioned dry. Surgicel was placed in the liver bed to assist with hemostasis. No blee ding or bile leak could be identified. CO2 was then evacuated and all trocars removed. Fascia was closed at the epigastric incision using a [id number] 0 Polysorb suture. Skin was closed in all incisions using a subcuticular 4 0 Polysorb suture by both the surgeon and horticultural nursery assistant. Sterile dressings consisting of Steri-Strips, 2 x 2 gauze, and Tegaderm were then applied. The patient tolerated the procedure well. Sponge instrument and needle counts reported as correct. The patient was transferred to PACU in stable condition.
[2024-12-22 15:56] VITALS: BP 159/57; PULSE 60; RESP 11; TEMP 36.6; O2SAT 94
[2024-12-22 16:01] VITALS: BP 149/56; PULSE 60; RESP 12; O2SAT 93
[2024-12-22 16:06] VITALS: BP 153/63; PULSE 60; RESP 16; O2SAT 96
[2024-12-22 16:10] VITALS: BP 159/60; PULSE 60; RESP 13; O2SAT 97
[2024-12-22 16:25] VITALS: BP 161/51; PULSE 60; RESP 14; TEMP 36.8; O2SAT 96
== END 2024-12-22 17:10 | disposition home or self-care (01) ==
PROVIDERS: Nurse Practitioner; PCP Internal Medicine; Visit Provider Surgery
PROC: 0FT44ZZ Resection of Gallbladder, Percutaneous Endoscopic Approach (ICD-10-PCS; CPT 47562; principal; 2024-12-22 14:50)
DX: K80.12 Calculus of gallbladder with acute and chronic cholecystitis without obstruction (principal); I13.0 Hypertensive heart and chronic kidney disease with heart failure and stage 1 through stage 4 chronic kidney disease, or unspecified chronic kidney disease; E11.22 Type 2 diabetes mellitus with diabetic chronic kidney disease; N18.4 Chronic kidney disease, stage 4 (severe); I50.30 Unspecified diastolic (congestive) heart failure; I25.10 Atherosclerotic heart disease of native coronary artery without angina pectoris; I48.19 Other persistent atrial fibrillation; G47.33 Obstructive sleep apnea (adult) (pediatric); Z95.2 Presence of prosthetic heart valve; Z95.0 Presence of cardiac pacemaker; Z95.1 Presence of aortocoronary bypass graft; Z99.89 Dependence on other enabling machines and devices; Z88.2 Allergy status to sulfonamides; Z88.8 Allergy status to other drugs, medicaments and biological substances
CPT/HCPCS: 47562; 36415; 80048; 82947; 85027; 88304; J0131; J0736; J1100; J2003; J2405; J2704; J3010

== ENCOUNTER → 2024-12-22 11:46 | Outpatient (BNV) | payer MEDICARE, OTHER, SELFPAY | PROVIDERS: PCP Internal Medicine; Visit Provider Surgery | DX: K80.00 Calculus of gallbladder with acute cholecystitis without obstruction (principal) | CPT/HCPCS: 47562 ==

== ENCOUNTER 2025-01-03 09:53 | Outpatient (AMB) | payer MEDICARE, OTHER, SELFPAY ==
--- NOTE | 2025-01-03 10:13 | A.OFFVIS_ITS ---
Vital Signs 01/03/25 10:15 Height 5 ft 10 in Weight 212 lb BMI 30.4 BP 150/65 H Blood Pressure Location Rt brachial Position Sitting Pulse 62 Intake Visit Reasons: S/P lap brian Intake Note: Patient here s/p Laparoscopic cholecystectomy. Patient c/o: no concerns. Reports steri strips still in place. No longer taking rx pain meds. 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 He reports he is eating well. Denies issues with bowel movements. Denies fevers or chills at home. Denies drainage from incision sites. Has been avoiding heavy lifting [facility] Medical History Pulmonary hypertension PAD (peripheral artery disease) Non-pressure chronic ulcer left lower leg, limited to breakdown skin Laceration of left lower leg without complication Atrial fibrillation Hx of cardiac pacemaker CKD (chronic kidney disease) stage 4, GFR 15-29 ml/min AV block, 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 CKD (chronic kidney disease), stage III Peripheral arterial occlusive disease Arthritis GERD (gastroesophageal reflux disease) BPH (benign prostatic hyperplasia) Gout Diabetes CHF (congestive heart failure) HTN (hypertension) Elevated cholesterol CAD (coronary artery disease) Surgical History (Updated 01/03/25 @ 13:21 by Fidel Rankin PA-C) Hx laparoscopic cholecystectomy (12/22/24) S/P TAVR (transcatheter aortic valve replacement) Hx of CABG Hx of angioplasty History of bilateral total hip arthroplasty History of carotid endarterectomy Hx of coronary angioplasty Social History Household Members: Spouse and Other Household Members Other:: MIL Housing: House Are you a primary hearing care professional to a significant other at home: No Do you presently have visiting nurse or other home services: No Comment: Counts correct Patient Tobacco Use Status: Never used Tobacco service: No Physical Exam Vital Signs: Last Vital Signs Pulse 62 01/03/25 10:15 BP 150/65 H 01/03/25 10:15 BMI result Body Mass Index 30.4 Const General: comfortable and no acute distress Orientation/consciousness: patient oriented x3 Resp Effort & Inspection: normal respiratory effort and able to speak in complete sentences GI Other: Incision sites healing well, Steri-Strips in place, removed in office. Some mild scabbing of the incision sites, otherwise look clean dry intact, no drainage, no warmth or redness Inspection: No distended Palpation (GI): Soft to palpation and nontender Neuro General: patient oriented x3 Assessment & Plan Assessment & Plan (1) S/P laparoscopic cholecystectomy: Code(s): Z90.49 - Acquired absence of other specified parts of digestive tract Category: Medical Plan 79-year-old male s/p laparoscopic cholecystectomy on 12/22/2024 returning to the office for routine follow up. Patient reports he is doing well, pain well controlled no longer requiring pain medications. His diet and bowel function are at baseline. Has been avoiding heavy lifting. Denies fevers at home. Denies concerns for incision sites, has left Steri-Strips in place. On exam the abdomen is soft and benign. The incisions appear to be healing well, there was some mild scabbing on the incisions. No redness warmth or discharge, no concern for infection at this time. We will continue with activity restrictions no heavy lifting greater than 15-20 lb for the next 2 weeks. He is agreeable to this plan. He will return in 2 weeks for follow up exam, can return sooner with any questions or concerns in the meantime. Medications: Discontinued oxycodone Partial Fill upon patient request. Discontinued Reason: Patient no longer taking 5 mg PO Q6H PRN 15 tabs 0RF pain (scale score 7-10) Coding Level of Care Code Global (63397) Diagnoses S/P laparoscopic cholecystectomy Z90.49
[2025-01-03 10:15] VITALS: BP 150/65; PULSE 62; BMI 30.4
== END 2025-01-03 10:31 | disposition home or self-care (01) ==
LOC: HO.HGS 09:54
PROVIDERS: PCP Internal Medicine
DX: Z90.49 Acquired absence of other specified parts of digestive tract (principal)
CPT/HCPCS: 99024

== ENCOUNTER → 2025-01-03 09:53 | Outpatient (BNVA) | payer MEDICARE, OTHER, SELFPAY | PROVIDERS: PCP Internal Medicine | DX: Z48.815 Encounter for surgical aftercare following surgery on the digestive system (principal); Z90.49 Acquired absence of other specified parts of digestive tract | CPT/HCPCS: 99212 ==

== ENCOUNTER 2025-01-17 09:31 | Outpatient (AMB) | payer MEDICARE, OTHER, SELFPAY ==
--- OUTSIDE RECORDS SUMMARY | 2025-01-12 06:17 | XMS_ITS | Encounter Summary ---
Author Organization [facility] Address [address] [place] [address] Care Team Providers Care Freezer Machine Operator Name Role Phone Chauncey Salmeron MD Primary Care Provider [phone] Reason for Referral * Imaging (Routine) - Closed Specialty Diagnoses / Procedures Referred By Contac t Referred To Contact Radiology Diagnoses Bilateral carotid artery stenosis Procedures CT Angio Head/Neck wo and/or w Contrast Ron Maloney MD [address] [place] [address] Phone: tel: fax: [address] [address] Phone: tel: Referral ID Status Reason Start Date Expiration Date Visits Re quested Visits Authorized [id number] Closed 01/11/2025 01/11/2026 1 1 Reason for Visit * Imaging (Routine) - Closed Specialty Diagnoses / Procedures Referred By Contac t Referred To Contact Radiology Diagnoses Bilateral carotid artery stenosis Procedures CT Angio Head/Neck wo and/or w Contrast Ron Maloney MD [address] [place] [address] Phone: tel: fax: [address] [address] Phone: tel: Referral ID Status Reason Start Date Expiration Date Visits Re quested Visits Authorized [id number] Closed 01/11/2025 01/11/2026 1 1 Encounter Details Date Type Department Care Team (Latest Contact Info) Description 01/12/2025 7:17 AM EDT - 01/12/2025 11:59 PM EDT Hospital Encounter [facility] CT Scan [address] [place] [address] Bilateral carotid artery stenosis Discharge Disposition: Home or Self Care Social History Tobacco Use Types Packs/Day Years [...] Sign Reading Time Taken Comments Blood Pressure - - Pulse - - Temperature - - Respiratory Rate - - Oxygen Saturation - - Inhaled Oxygen Concentration - - Weight 93.4 kg (206 lb) 01/12/2025 8:00 AM EDT Height - - Body Mass Index 28.73 11/26/2024 1:31 PM EDT documented in this encounter Medications at Time of Discharge acetaminophen (TYLENOL) 325 mg tablet Take 2 [...] by mouth 1 (one) time each day. doxazosin XL (CARDURA XL) 4 mg 24 hr tablet Take 1 tablet (4 mg total) by mouth 1 (one) time each day with breakfast. Do not crush, chew, or split. Farxiga 10 mg tablet Take 1 tablet (10 mg total) by mouth 1 (one) time each day. 09/30/2024 furosemide (LASIX) 80 mg tablet Take 0.5 tablets (40 mg total) by mouth 2 (two) times a day. 07/18/2023 glipiZIDE (GLUCOTROL) 5 mg tablet Take 1 tablet (5 mg total) by mouth 1 (one) time each day. hydrALAZINE (APRESOLINE) 100 mg tablet Take 1 tablet (100 mg total) by mouth 2 (two) times a day. levocetirizine (XYZAL) 5 mg tablet Take 1 tablet (5 mg total) by mouth 1 (one) time each day in the evening. multivitamin (MULTIPLE VITAMINS ORAL) Take 1 Tablet by mouth daily. atorvastatin (LIPITOR) 80 mg tablet TAKE 1 TABLET BY MOUTH EVERY DAY 90 tablet 12/01/2024 documented as of this encounter Discharge Disposition Disposition Code Departure Means Destination Home or Self Care documented in this encounter Procedure Notes * Emma Chacon RN - 01/12/2025 10:00 AM EDT Hydration complete. documented in this encounter Plan of Treatment Upcoming Encounters Date Type Department Care Team (Late st Contact Info) Description 02/25/2025 9:30 AM EST Office Visit Vascular Surgery - [place] [address] [place] [address] Ron Maloney MD [address] [place] [phone] 04/05/2025 8:50 AM EST Office Visit [facility] Cardiology [facility] [address] [place] [address] [address] [place] [address] Jewel Ruggiero MD [address] [place] [address] [address] [place] [address] 05/12/2025 10:00 AM EST Ancillary Procedure [facility] [address] [place] [phone] 05/26/2025 11:00 AM EDT Ancillary Procedure [facility] Cardiology [facility] [address] [place] [address] documented as of this encounter Procedures Procedure Name Priority Date/Time Associated Diagnosis Comments CT ANGIO HEAD/NECK WO AND/OR W CONTRAST Routine 01/12/2025 10:20 AM EDT Bilateral carotid artery stenosis documented in this encounter Results * CT Angio Head/Neck wo and/or w Contrast (01/12/2025 10:20 AM EDT) Anatomical Region Laterality Modality Head and Neck Computed Tomogra phy 01/13/2025 1:06 PM EDT Impressions 01/13/2025 1:28 PM EDT 1. Estimated 75% stenosis of the proximal left internal carotid artery at the bulb. 2. Possible origin stenosis of the left common carotid artery, not definitively evaluated due to motion. 3. Right carotid endarterectomy. Mild residual stenosis of the common carotid artery just proximal to the bulb. 4. Probable mild bilateral vertebral artery origin stenoses and a mild stenosis of the right vertebral artery at the C4 level. 5. Severe left P2 stenosis. 6. Prominence of the central pulmonary arteries, raising the possibility of pulmonary vertebral hypertension. -------- FINAL REPORT -------- Dictated By: Moshe Amaro Dictated Date: 01/13/2025 13:06 ET Assigned Physician: Moshe Amaro Reviewed and Electronically Signed By: Moshe Amaro Signed Date: 01/13/2025 13:28 ET Workstation ID: [id number] Transcribed By: Self Edit Transcribed Date: 01/13/2025 13:06 ET Narrative 01/13/2025 1:28 PM EDT PROCEDURE: CT angiogram of the neck and [place] of [place] and delayed postcontrast CT of the brain. HISTORY: carotid stenosis. COMPARISON: CTA 11/07/2022. TECHNIQUE: CT angiogram of the neck and [place] of [place] with multiplanar reformats. Delayed postcontrast images of the brain were also obtained. IV contrast dose: 90 mL ISOVUE-370. Dose length product: 1765 mGy-cm. FINDINGS: BRAIN: No hemorrhage, edema, mass, or extra-axial fluid collection. No CT evidence of an acute large vessel infarct. Ventricles and sulci are age commensurate. Patchy hypoattenuation in the supratentorial white matter suggestive of mild chronic microvascular ischemic disease. Atherosclerotic calcifications of the carotid siphons. CTA: Moderate atherosclerotic calcifications of the aortic arch. Standard three-vessel arch configuration. Small amount of atherosclerotic plaque in the brachiocephalic trunk and in the left subclavian artery. There is no significant subclavian stenosis. Multifocal atherosclerotic plaque in the carotids. There is a possible origin stenosis of the left common carotid artery but this is difficult to evaluate to motion. Significant stenosis of the proximal left internal carotid artery at the bulb, estimated at approximately 75%. Right carotid endarterectomy There is a mild luminal stenosis of the upper right common carotid artery, and soft plaque with moderate luminal irregularity of the proximal internal carotid artery without a hemodynamically significant stenosis. Vertebral arteries are similar in size. Scattered foci of calcified plaque in both vertebral arteries, with suggestion of mild bilateral origin stenoses which are difficult to evaluate secondary to motion, and mild luminal stenosis of the right vertebral artery at the C4 level. The basilar artery is widely patent. There is a severe stenosis of the left P2 segment. Mild diffuse luminal irregularity of the right FISHERIES SPECIALIST. Small caliber right P-comm. No visible left posterior communicating artery. The anterior and middle cerebral arteries are patent without evidence of a hemodynamically significant stenosis. The left A1 segment is slightly small in caliber and there is a small fenestration of the proximal right M1 segment. No aneurysm. No findings to suggest a vascular malformation. Patent dural venous sinuses. ORBITS: Normal. SINUSES/MASTOIDS: Mild mucosal thickening in the inferior maxillary antra. The left antrum is mildly hypoplastic. CALVARIUM: Normal. OTHER: Multilevel degenerative changes of the cervical spine. Sternotomy wires, post CABG changes, and a partially visible left chest wall cardiac pacemaker. The central pulmonary arteries appear prominent, raising the possibility of pulmonary arterial hypertension. Small thyroid nodules which could be better evaluated with ultrasound. Procedure Note Moshe Amaro MD - 01/13/2025 PROCEDURE: CT angiogram of the neck and [place] of [place] and delayedpostcontrast CT of the brain. HISTORY: carotid stenosis. COMPARISON: CTA 11/07/2022. TECHNIQUE: CT angiogram of the neck and [place] of [place] with multiplanarreformats. Delayed postcontrast images of the brain were also obtained. IV contrast dose: 90 mL ISOVUE-370. Dose length product: 1765 mGy-cm. FINDINGS: BRAIN: No hemorrhage, edema, mass, or extra-axial fluid collection. No CTevidence of an acute large vessel infarct. Ventricles and sulci are agecommensurate. Patchy hypoattenuation in the supratentorial white mattersuggestive of mild chronic microvascular ischemic disease.Atherosclerotic calcifications of the carotid siphons. CTA: Moderate atherosclerotic calcifications of the aortic arch. Standardthree- vessel arch configuration. Small amount of atherosclerotic plaque in the brachiocephalic trunk and inthe left subclavian artery. There is no significant subclavian stenosis.Multifocal atherosclerotic plaque in the carotids. There is a possibleorigin stenosis of the left common carotid artery but this is difficult toevaluate to motion. Significant stenosis of the proximal left internalcarotid artery at the bulb, estimated at approximately 75%. Right carotid endarterectomy There is a mild luminal stenosis of the upperright common carotid artery, and soft plaque with moderate luminalirregularity of the proximal internal carotid artery without ahemodynamically significant stenosis. Vertebral arteries are similar in size. Scattered foci of calcifiedplaque in both vertebral arteries, with suggestion of mild bilateralorigin stenoses which are difficult to evaluate secondary to motion, andmild luminal stenosis of the right vertebral artery at the C4 level. The basilar artery is widely patent. There is a severe stenosis of theleft P2 segment. Mild diffuse luminal irregularity of the right FISHERIES SPECIALIST.Small caliber right P-comm. No visible left posterior communicatingartery. The anterior and middle cerebral arteries are patent without evidence of ahemodynamically significant stenosis. The left A1 segment is slightlysmall in caliber and there is a small fenestration of the proximal rightM1 segment. No aneurysm. No findings to suggest a vascularmalformation. Patent dural venous sinuses. ORBITS: Normal. SINUSES/MASTOIDS: Mild mucosal thickening in the inferior maxillary antra.The left antrum is mildly hypoplastic. CALVARIUM: Normal. OTHER: Multilevel degenerative changes of the cervical spine. Sternotomywires, post CABG changes, and a partially visible left chest wall cardiacpacemaker. The central pulmonary arteries appear prominent, raising thepossibility of pulmonary arterial hypertension. Small thyroid noduleswhich could be better evaluated with ultrasound. IMPRESSION: 1. Estimated 75% stenosis of the proximal left internal carotid artery atthe bulb. 2. Possible origin stenosis of the left common carotid artery, notdefinitively evaluated due to motion. 3. Right carotid endarterectomy. Mild residual stenosis of the commoncarotid artery just proximal to the bulb. 4. Probable mild bilateral vertebral artery origin stenoses and a mildstenosis of the right vertebral artery at the C4 level. 5. Severe left P2 stenosis. 6. Prominence of the central pulmonary arteries, raising the possibilityof pulmonary vertebral hypertension. -------- FINAL REPORT -------- Dictated By: Moshe Amaro Dictated Date: 01/13/2025 13:06 ET Assigned Physician: Moshe Amaro Reviewed and Electronically Signed By: Moshe Amaro Signed Date: 01/13/2025 13:28 ET Workstation ID: [id number] Transcribed By: Self Edit Transcribed Date: 01/13/2025 13:06 ET Ron Maloney MD IMG CT PROCEDURES Final Result documented in this encounter Visit Diagnoses Diagnosis Bilateral carotid artery stenosis Occlusion and stenosis of carotid artery without mention of cerebral infarction Encounter for adjustment or management of cardiac device documented in this encounter Administered Medications Inactive Administered Medications - up to 3 most recent administrations Medication Order MAR Action Action Date Dose Rate Site iopamidoL (ISOVUE-370) 370 mg iodine /mL (76 %) injection 90 mL 90 mL, intravenous, Once in imaging, Starting on Fri01/12/25 at 1014, For 1 dose Given 01/12/2025 10:16 AM EDT 90 mL sodium chloride 0.9 % flush 10 mL 10 mL, intravenous, Once, On Fri01/12/25 at 1030, For 1 dose Given 01/12/2025 10:16 AM EDT 10 mL sodium chloride 0.9 % infusion 2 mL/kg/hr 93.4 kg (186.8 mL/hr), intravenous, Continuous, Starting on Fri01/12/25 at 0800, For 4 hours New Bag 01/12/2025 8:00 AM EDT 2 mL/kg/hr 186.8 mL/hr documented in this encounter Care Teams Freezer Machine Operator Relationship Specialty Start Date End Date Chauncey Salmeron MD [address] [place] [address] [address] [place], [place] PCP - General Internal Medicine 02/20/18 documented as of this encounter
--- NOTE | 2025-01-17 09:59 | A.OFFVIS_ITS ---
Vital Signs 01/17/25 10:05 Height 5 ft 10 in Weight 214 lb BMI 30.7 BP 132/60 Blood Pressure Location Lt brachial Position Sitting Pulse 68 Intake Visit Reasons: S/P lap brian Intake Note: Pt states, I'm here for follow up. I had my gallbladder removed. c/o upset stomach, no vomiting, diarrhea but that is improving Bottom Crane Operator Required: No Allergies cefazolin Allergy (Verified 01/17/25 10:01) Unknown lisinopril Allergy (Verified 01/17/25 10:01) Unknown sulfamethoxazole (From Bactrim) Allergy (Verified 01/17/25 10:01) Affected Kidneys trimethoprim (From Bactrim) Allergy (Verified 01/17/25 10:01) Affected Kidneys Medication List - Last Reconciled 01/17/25 by Sergio Mckenna RN allopurinol 200 mg PO DAILY ascorbic acid (vitamin C) 500 mg PO DAILY aspirin 81 mg PO DAILY atorvastatin 80 mg PO BEDTIME dapagliflozin propanediol (Farxiga) 10 mg PO DAILY doxazosin 4 mg PO BEDTIME furosemide 40 mg PO BID glipizide 5 mg PO DAILY hydralazine 100 mg PO BID multivitamin 1 tab PO DAILY HPI HPI S/P lap brian: Details: Overall doing well. Reports some vague abdominal discomfort that he feels his overall improving. Initially had some diarrhea which has been resolving over the past few days, reports regular bowel movements. He does report a slightly decreased appetite, is trying to avoid high fatty foods. He denies fevers or chills. Denies nausea or vomiting. No concerns with the incision sites. [facility] Medical History Pulmonary hypertension PAD (peripheral artery disease) Non-pressure chronic ulcer left lower leg, limited to breakdown skin Laceration of left lower leg without complication Atrial fibrillation Hx of cardiac pacemaker CKD (chronic kidney disease) stage 4, GFR 15-29 ml/min AV block, 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 CKD (chronic kidney disease), stage III Peripheral arterial occlusive disease Arthritis GERD (gastroesophageal reflux disease) BPH (benign prostatic hyperplasia) Gout Diabetes CHF (congestive heart failure) HTN (hypertension) Elevated cholesterol CAD (coronary artery disease) Surgical History (Updated 01/03/25 @ 13:21 by Fidel Chucho, PA-C) Hx laparoscopic cholecystectomy (12/22/24) S/P TAVR (transcatheter aortic valve replacement) Hx of CABG Hx of angioplasty History of bilateral total hip arthroplasty History of carotid endarterectomy Hx of coronary angioplasty Social History Household Members: Spouse and Other Household Members Other:: [facility] Housing: House Are you a primary women's health care nurse practitioner to a significant other at home: No Do you presently have visiting nurse or other home services: No Comment: Counts correct Patient Tobacco Use Status: Never used Tobacco service: No Physical Exam Vital Signs: Last Vital Signs Pulse 68 01/17/25 10:05 BP 132/60 01/17/25 10:05 BMI result Body Mass Index 30.7 Const General: comfortable and no acute distress Orientation/consciousness: patient oriented x3 GI Other: Incision sites healing well, intact, no erythema, fluctuance nontender Inspection: No distended Palpation (GI): Soft to palpation and nontender Neuro General: patient oriented x3 Assessment & Plan Assessment & Plan (1) S/P laparoscopic cholecystectomy: Code(s): Z90.49 - Acquired absence of other specified parts of digestive tract Category: Surgical Plan 79-year-old male s/p laparoscopic cholecystectomy on 12/22/[address] Oliver returning to the office for routine one-month follow up. Patient reports he is doing well, does have some vague abdominal discomfort. States this is overall improving. Also had some intermittent diarrhea that has improved of the past 3 days, having regular bowel movements. Reassured him this is not uncommon after gallbladder surgery. Should resolve in the coming weeks to months. He does have a decreased appetite, but is tolerating food well, avoiding high fatty foods. Has been avoiding heavy lifting, wants to get back to activity. At this point can resume activity as tolerated, I recommended starting about half of his baseline level of activity and progressing over the a few weeks to his baseline. Denies fevers at home. Abdominal exam is soft and benign, incisions healing well, no concern for infection at this time. We will continue with activity restrictions no heavy lifting greater than 15-20 lb for the next 2 weeks. He is agreeable to this plan. He will return in 2 weeks for follow up exam, can return sooner with any questions or concerns in the meantime. Coding Level of Care Code Global (41522) Diagnoses S/P laparoscopic cholecystectomy Z90.49
[2025-01-17 10:05] VITALS: BP 132/60; PULSE 68; BMI 30.7
--- OUTSIDE RECORDS SUMMARY | 2025-01-17 10:50 | XMS_ITS | Clinical Summary ---
Author Organization [facility] Address [address] [place] [address] Care Team Providers Care Hospital Food Service Worker Name Role Phone Chauncey Salmeron MD Primary Care Provider + [phone] Allergies Active Allergy Reactions Criticality Noted Date [...] this topic Medical Devices Implanted Type Area Model Maker Apprentice Device Identifier Shelf Expiration Date Model / Serial / Lot Device Clsur Watchman Flx Pro Shannan 31mm Bsci-Prnt [id number] - [id number] Implanted:Qty: 1 on 09/25/2023 by Sid Toney MD at [facility] Med Left: Heart Mashery ESTELITA [id number] / [id number] / Description:Left atrial appe ndage closure device Advance Directives For more information, please contact: [phone] Latest Code Status on File Code Status Date Activated Date Inactivated Comments Full Code 09/25/2023 11:28 AM 09/25/2023 11:04 PM Thi s code status was ascertained in the following way: discussion with patient . Care Teams Hospital Food Service Worker Relationship Specialty Start Date End Date Chauncey Salmeron MD [address] [facility] [address] [place] [address] PCP - General Geriatric Medicine 09/24/23
--- OUTSIDE RECORDS SUMMARY | 2025-01-17 10:50 | XMS_ITS | Encounter Summary ---
Author Organization [facility] Address [address] [place] [address] Care Team Providers Care Photographer Aerial Name Role Phone Chauncey Salmeron MD Primary Care Provider Encounter Details Date Type Department Care Team (Late st Contact Info) Description 01/13/2025 Results Follow-Up Vascular Surgery - [place] [address] [place] [phone] Ashely Mock PA [address] [place] [address] Social History Tobacco Use Types Packs/Day Years [...] on file documented as of this encounter Plan of Treatment Upcoming Encounters Date Type Department Care Team (Late st Contact Info) Description 02/25/2025 9:30 AM EST Office Visit Vascular Surgery - [place] [address] [place] [phone] Ron Maloney MD [address] [place] [phone] 04/05/2025 8:50 AM EST Office Visit [facility] Cardiology [place] [address] [place] [phone] Jewel Ruggiero MD [address] [place] [address] [address] [place] [address] 05/12/2025 10:00 AM EST Ancillary Procedure [facility] Cardiology [facility] [address] [place] [address] 05/26/2025 11:00 AM EDT Ancillary Procedure [facility] Cardiology [facility] [address] [place] [address] documented as of this encounter Visit Diagnoses Not on filedocumented in this encounter Care Teams Photographer Aerial Relationship Specialty Start Date End Date Chauncey Salmeron MD [address] [place], [place] PCP - General Internal Medicine 02/20/18 documented as of this encounter
--- OUTSIDE RECORDS SUMMARY | 2025-01-17 10:50 | XMS_ITS | Clinical Summary ---
Author Organization [address] [place] [address] [place] [phone] Phone Care Team Providers Care Press Bucker Name Role Phone Chauncey Salmeron MD Primary Care Provider [phone] Allergies Active Allergy Reactions Criticality Noted Date [...] 1 (one) time each day. 09/30/2024 Active atorvastatin (LIPITOR) 80 mg tablet TAKE 1 TABLET BY MOUTH EVERY DAY 90 tablet 12/01/2024 Active Active Problems Problem Noted Date Diagnosed Date Pulmonary hypertension (CMS/HCC V24, CMS/HCC V28 ) 07/12/2024 Assessment & Plan (11/26/2024 [...] higher levels of furosemide. Will refer to [facility] Pulmonary Hypertension clinic. Assessment & Plan [...] daily about 3 months ago by his education administrator. The patient had been doing well up [...] CKD (chronic kidney disease) , stage IV ([facility] V24, 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 V24, CMS/[facility] V28) 03/25/2022 Atrial fibrillation ([facility] V24, [facility] V28) 1 05/14/2021 Assessment & Plan [...] kidney disease (CKD) , stage III (moderate) ([facility] V24, [facility] V28) 09/16/2019 Hyperlipidemia 09/16/2019 Assessment & [...] have been well-controlled. Type 2 diabetes mellitus ([facility] V24, [facility] V 28) 09/16/2019 Bilateral carotid artery stenosis 05/11/2018 PAD (peripheral artery disease) ([facility] V24) Assessment & Plan (08/16/2024 11:31 AM [...] Most recently, the patient was seen at [facility] where he was reevaluated by electrophysiology given [...] Encounters Date Type Department Care Team Description 01/13/2025 Results Follow-Up Vascular Surgery [facility] [place] [address] [place] [phone] Ashely Mock PA 01/12/2025 7:17 AM EDT - 01/12/2025 11:59 PM EDT Hospital Encounter [facility] CT Scan [address] [place] [phone] Bilateral carotid artery stenosis Discharge Disposition: Home or Self Care 12/01/2024 Telephone [facility] [address] [place] [address] Laura Russ NP 11/26/2024 1:40 PM EDT Consult [facility] [address] [place] [address] Laura Russ NP Pre-op exam (Primary Dx); Chronic heart failure with preserved ejection fraction (CMS/HCC V24, CMS/HCC V28); Coronary artery disease involving little river coronary artery of little river heart without angina pectoris; Pulmonary hypertension (CMS/HCC V24, CMS/HCC V28); Atrial fibrillation, unspecified type (CMS/HCC V24, CMS/HCC V28); S/P TAVR (transcatheter aortic valve replacement); Pure hypercholesterolemia ; Primary hypertension 11/22/[address] [facility] [address] [place] [address] Jewel Ruggiero MD 11/16/2024 [address]phone [facility] [address] [place] [address] Jewel Ruggiero MD 11/12/2024 10:30 AM EDT Office Visit Vascular Surgery - [place] [address] [place] [phone] Ron Maloney MD Bilateral carotid artery stenosis (Primary Dx); PAD (peripheral artery disease) (CMS/HCC V24) 11/05/2024 9:05 AM EDT Ancillary Procedure [facility] [address] [place] [phone] from Last 3 Months Immunizations Immunization Administration Dates Next Due [employer]/Ar[employer] NLG SARS-CoV-2 COVID -19, vector-nr, rS-Ad26, preservative free [...] PROCEDURE: HISTORICAL TONSILLECTOMY CARDIAC CATHETERIZATION DONE AT [facility] ON 07/23/24. INDICATIONS:Congestive Heart Failure Medical History Medical History Date Comments Rib fractures DX:Rib fractures CRF (chronic renal failure) 03/25/2022 DX:C RF (chronic renal failure) Diabetes mellitus type 2, no ninsulin dependent ([facility] V24, [facility] V28) DX:Diabetes melli tus type 2, noninsulin dependent ([facility]) Difficult airway for intubation DX:Difficult airway for intubation; COMMENT: Grade III view Gout DX:Gout HERNANDEZ on CPAP 03/25/2022 DX:HERNANDEZ on CPAP Prosthetic joint infection ( [facility] V24) DX:Prosthetic joint infectio n ([facility]) Right-sided extracranial car otid artery stenosis DX:Right-sided [...] EDT Inhaled Oxygen Concentration - - Weight 93.4 kg (206 lb) 01/12/2025 8:00 AM EDT Height 180.3 cm (5' 11 ) 11/26/2024 1:31 PM EDT Body Mass Index 28.73 11/26/2024 1:31 PM EDT Plan of Treatment Upcoming Encounters Date Type Department Care Team (Late st Contact Info) Description 02/25/2025 9:30 AM EST Office Visit Vascular Surgery - [place] [address] [place] [address] Ron Maloney MD [address] [place] [phone] 04/05/2025 8:50 AM EST Office Visit [facility] Cardiology [facility] [address] [place] [address] [address] [place] [phone] Jewel Ruggiero MD [address] [place] [address] [address] [place] [phone] 05/12/2025 10:00 AM EST Ancillary Procedure [facility] - [address] [place] [phone] 05/26/2025 11:00 AM EDT Ancillary Procedure [facility] [address] [place] [phone] Health Maintenance Due Date Last Done Comments Diabetes: Annual Foot Exam 1955 Diabetes: Annual Retina Eye Exam 1955 DTaP,Tdap,and Td Vaccines (1 - Tdap) 1965 Pneumococcal Vaccine: 50+ Years (2 of 2 - PPSV23, PCV20, or PCV21) 06/04/2016 04/09/2016 Cholesterol Screening (Lipid Panel) 02/23/2022 Falls Risk Assessment 02/23/2022 Hepatitis C Screening 02/23/2022 Medicare Annual Wellness Visit 02/23/2022 Social Influencers of Health Screening 02/23/2022 Diabetes: Blood Sugar Control Test (HGBA1C) 03/01/2022 Depression Screening 03/17/2024 COVID-19 Vaccine () 07/06/2025 01/05/2025, 12/08/2023, 12/30/2022, Additional history exists Diabetes: Annual Urine Albumin-Creatinine Ratio (uACR) 09/13/2025 09/13/2024, 02/26/2024 Diabetes: Annual GFR (Glomerular Filtration Rate) 12/20/2025 12/20/2024, 04/23/2024, 04/15/2024, Additional history exists Hypertension/CHF/CAD Annual BMP Blood Test 12/20/2025 12/20/2024, 04/23/2024, 04/15/2024, Additional history exists RSV Immunization Adult Patients Completed 12/10/2022 Zoster Vaccines Completed 12/30/2022, 10/15, 03/17/2019, Additional history exists Influenza Vaccine Completed 01/05/2025, , 12/10/2022, Additional history exists HIB Vaccines Aged Out [...] this topic Medical Devices Implanted Type Area Copper Plate Lithographer Device Identifier Shelf Expiration Date Model / Serial / Lot Abbt-Stmanoj 1272 Assurity Mri(Tm) [id number] Implanted:07/2023 by Sid Toney MD (Quantity not on file) Cardiac Pacemaker Left: Chest [facility] 1272 ASSURITY MRI(TM) / [id number] / Abbt-Stju Assurity Mri [id number] Implanted:07/2023 (Quantity not on file) Cardiac Pacemaker [facility] [employer] MRI 1272 / [id number] / Device Clsur Watchman Flx Pro Shannan 31mm Bsci-Prnt [id number] - [id number] Implanted:Qty : 1 on 09/25/2023 by Sid Toney MD Left: Heart [employer] ESTELITA [id number] / [id number] / Description:Left atrial appe ndage closure device Procedures Procedure Name Priority Date/Time Associated Diagnosis Comments CT ANGIO HEAD/NECK WO AND/OR W CONTRAST Routine 01/12/2025 10:20 AM EDT Bilateral carotid artery stenosis CREATININE, SERUM Routine 12/20/2024 9:5 5 AM EDT Bilateral carotid artery stenosis BUN Routine 12/20/2024 9:55 AM EDT Bilateral carotid artery stenosis ECG 12-LEAD Routine 11/26/2024 1:50 PM EDT Pre-op exam CARDIAC DEVICE CHECK- REMOTE- MURJ Routine 11/05/2024 9:04 AM EDT from Last 3 Months Results * CT Angio Head/Neck wo and/or [...] Signed Date: 01/13/2025 13:28 ET Workstation ID: [id number] Transcribed By: Self Edit Transcribed Date: 01/13/2025 13:06 ET Narrative 01/13/2025 1:28 PM EDT PROCEDURE: CT angiogram of the neck and algaaciq of Lopez and delayed postcontrast CT of the brain. HISTORY: carotid stenosis. COMPARISON: CTA 11/07/2022. TECHNIQUE: CT angiogram of the neck and algaaciq of Lopez with multiplanar reformats. Delayed postcontrast [...] Mild diffuse luminal irregularity of the right SERVICE PLUMBER. Small caliber right P-comm. No visible left [...] PROCEDURE: CT angiogram of the neck and algaaciq of Lopez and delayedpostcontrast CT of the brain. HISTORY: carotid stenosis. COMPARISON: CTA 11/07/2022. TECHNIQUE: CT angiogram of the neck and algaaciq of Lopez with multiplanarreformats. Delayed postcontrast images [...] Mild diffuse luminal irregularity of the right SERVICE PLUMBER.Small caliber right P-comm. No visible left posterior [...] Signed Date: 01/13/2025 13:28 ET Workstation ID: [id number] Transcribed By: Self Edit Transcribed Date: 01/13/2025 13:06 ET us Ron Maloney MD IMG CT PROCEDURES Final Result * (ABNORMAL) Creatinine (12/20/2024 9:55 AM EDT) Creatinine 3.21(H) 0.70 - 1.30 mg/dL LAB CHEMISTRY METHOD 12/20/2024 1:[address] [facility] eGFR 19(L) >=60 mL/min/1. 73m2 LAB CHEMISTRY METHOD 12/20/2024 1:[address] [facility] Comment:Calculation based on the Chronic Kidney Disease Epidemiology Collaboration (CKD-EPI) equation refit without adjustment for race. Blood Venous blood specimen / Unknown Venipuncture / Unknown 12/20/2024 9:55 AM EDT 12/20/2024 11:17 AM EDT us Ron Maloney MD LAB BLOOD ORDERABLES Final Resu lt Performing Organization Address [facility] Co de Phone Number [facility] [address] [place] [address], * (ABNORMAL) BUN (12/20/2024 9:55 AM EDT) BUN 95(H) 5 - 25 mg/dL LAB CHEMISTRY METHOD 12/20/2024 1:[address] [facility] Blood Venous blood specimen / Unknown Venipuncture / Unknown 12/20/2024 9:55 AM EDT 12/20/2024 11:17 AM EDT us Ron Maloney MD LAB BLOOD ORDERABLES Final Resu lt [facility] [address] [place] [address], * ECG 12 lead (11/26/2024 1:50 PM EDT) Ventricular Rate ECG 60 BPM GEMUSE Atrial Rate 59 BPM GEMUSE QRS Duration 176 ms GEMUSE Q-T Interval 508 ms GEMUSE QTc 508 ms GEMUSE R Hemlock 141 degrees GEMUSE T [place] 6 degrees GEMUSE ECG Interpretation Ventricular-pa ashlee rhythm Abnormal ECG When compared with ECG of 07-APR-2024 15:08, No significant change was found Confirmed by AMILCAR MORRISON ([id number]) on 12/06/2024 9:09:57 AM GEMUSE 11/26/2024 1:45 PM EDT 12/06/2024 9:09 AM EDT Laura Russ NP ECG ORDERABLES Edited Result - Final GEMUSE * Cardiac device check - Remote- MURJ (11/05/2024 9:04 AM EDT) Date Time Interrogation Session [id number] CV DEVICE CHECK Type Interrogation Session Remote Scheduled CV DEVICE CHECK Implantable Pulse Generator Copper Plate Lithographer [employer] CV DEVICE CHECK Implantable Pulse Generator Type IPG CV DEVICE CHECK Implantable Pulse Generator Model 1272 Assurity MRI(TM) CV DEVICE CHECK Implantable Pulse Generator Serial Number [id number] CV DEVICE CHECK Implantable Pulse Generator Implant Date [id number] CV DEVICE CHECK Battery Remaining Percentage 90.00 CV DEVICE CHECK Battery Remaining Longevity 121.0 CV DEVICE CHECK Battery Voltage 3.010 CV D EVICE CHECK Battery ASSISTANT TRACK COACH Trigger 2.600 CV DEVICE CHECK Battery Status [...] CV IMPLANTABLE CARDIAC DEVICE PROCEDURES Final Result from Last 3 Months Insurance MEDICARE [facility] Advance Directives Documents on File Type Date Recorded Patient Mobile Phlebotomist Expl anation Health Care Decision (hx) 12/29/2016 [...] (hx) 12/29/2016 AD SMITH DIRECTIVE Care Teams Press Bucker Relationship Specialty Start Date End Date Chauncey Salmeron MD [address] [place], [place] PCP - General Internal Medicine 02/20/18
== END 2025-01-17 10:09 | disposition home or self-care (01) ==
LOC: HO.HGS 09:32
PROVIDERS: PCP Internal Medicine
DX: Z90.49 Acquired absence of other specified parts of digestive tract (principal)
CPT/HCPCS: 99024

== ENCOUNTER → 2025-01-17 09:31 | Outpatient (BNVA) | payer MEDICARE, OTHER, SELFPAY | PROVIDERS: PCP Internal Medicine | DX: R10.9 Unspecified abdominal pain (principal); Z90.49 Acquired absence of other specified parts of digestive tract; Z48.89 Encounter for other specified surgical aftercare; Z95.2 Presence of prosthetic heart valve; R19.7 Diarrhea, unspecified | CPT/HCPCS: 99212 ==